=== PATIENT | female | born 1995 | race Caucasian/White ===

== ENCOUNTER → 2017-10-26 12:49 | Outpatient (CLI) | payer OTHER, SELFPAY ==
[2017-11-02 15:33] LABS: HPV Reflexed? NOT INDICATED
== END ==
PROVIDERS: Visit Provider Obstetrics & Gynecology
DX: Z12.4 Encounter for screening for malignant neoplasm of cervix (principal)
CPT/HCPCS: 88175; G0145

== ENCOUNTER → 2018-11-07 16:15 | Outpatient (CLI) | payer OTHER, SELFPAY | PROVIDERS: Visit Provider Obstetrics & Gynecology | DX: Z12.4 Encounter for screening for malignant neoplasm of cervix (principal) ==

== ENCOUNTER → 2018-12-17 10:16 | Outpatient (CLI) | payer OTHER, SELFPAY ==
--- NOTE | 2018-12-17 10:23 | US_ITS ---
STUDY: THYROID ULTRASOUND REASON FOR EXAM: Female, 23 years old. Enlarged thyroid gland TECHNIQUE: Ultrasound evaluation of the thyroid was performed with real-time and static arce-scale imaging. COMPARISON: None. FINDINGS: RIGHT LOBE: The right lobe of the thyroid gland measures 5.3 x 1.5 x 1.2 cm. There is a homogeneous echotexture. There are no demonstrated solid, cystic or complex lesions. LEFT LOBE: The left lobe of the thyroid gland measures 4.4 x 1.0 x 0.9 cm. There is a homogeneous echotexture. There are no demonstrated solid, cystic or complex lesions. ISTHMUS: The isthmus measures 3 mm. The regional lymph nodes are normal. US/Thyroid IMPRESSION: No solid or cystic nodules. Electronically Signed: Ramirez Alfonso MD (Brooks) at 21:23 EDT , Service support ,
--- NOTE | 2018-12-17 10:23 | US_ITS ---
STUDY: ABDOMINAL ULTRASOUND - RIGHT UPPER QUADRANT REASON FOR VISIT: Female, 23 years old. Intermittent right upper quadrant pain for several years TECHNIQUE: Ultrasound evaluation of the right upper quadrant was performed with real-time and static arce-scale imaging. TECHNICAL QUALITY: Adequate. COMPARISON: None. FINDINGS: Liver: The liver measures 17 cm. There is normal echogenicity of the liver. The bile ducts are within normal limits. There is hepatic color flow. The direction of portal flow is hepatopetal. There is no demonstrated mass lesion. Gallbladder: Normal distended gallbladder. The gallbladder wall measures 2 mm. There is a negative sonographic Cordero's sign. There is no pericholecystic fluid. No shadowing gallstones. There is small gallbladder polyps measuring up to 4 mm. Ring down artifact identified of the gallbladder wall. Nonmobile echogenic focus of the gallbladder likely represents a small polyp. Common Bile Duct (C.B.D.): The common bile duct measures 3 mm. Pancreas: There is normal echogenicity of the visualized pancreas. There is no demonstrated pancreatic mass or cyst. Right Kidney: Normal size of the right kidney. The right kidney measures 10.2 x 4.9 x 3.4 cm. Normal renal cortex. The right cortex measures 1.4 cm. There is no demonstrated renal mass or cyst. There is no right hydronephrosis. US/Abdomen Limited IMPRESSION: 1. No shadowing gallstones or biliary dilation. 2. Cholesterol polyps measuring up to 4 mm. 3. Adenomyomatosis Electronically Signed: Ramirez Alfonso MD (Brooks) at 21:21 EDT , Service support ,
== END ==
PROVIDERS: Family Provider Nurse Practitioner Family; PCP Nurse Practitioner Family; Referring Provider Nurse Practitioner Family; Visit Provider Nurse Practitioner Family
DX: R10.11 Right upper quadrant pain (principal); E04.9 Nontoxic goiter, unspecified; E03.9 Hypothyroidism, unspecified
CPT/HCPCS: 76536; 76705

== ENCOUNTER → 2019-01-31 10:31 | Outpatient (CLI) | payer OTHER, SELFPAY ==
--- NOTE | 2019-01-31 10:33 | NM_ITS ---
CLINICAL: 23-year-old female with reported history of right upper quadrant abdominal pain. RADIONUCLIDE HEPATOBILIARY SCINTIGRAPHY COMPARISON: Abdominal ultrasound report 12/17/2018 FINDINGS: Following the intravenous administration of 5.5 mCi of 99m Tc Mebrofenin, hepatobiliary images reveal: 1. Relatively prompt and homogeneous radiopharmaceutical concentration is noted by a normal sized liver. No parenchymal defects are identified. 2. Gallbladder activity is identified at 15 minutes post radiopharmaceutical administration. 3. Small intestinal tract is not visualized during 60 minutes of pre-CCK sequential imaging. Small bowel activity is identified following the administration of cholecystokinin. 4. Washout of the radiopharmaceutical by the hepatic parenchyma appears qualitatively normal. Cholecystokinin (0.02 ug/kg) was administered intravenously over a 30-minute period. The post CCK gallbladder ejection fraction calculated at 20 minutes following Cholecystokinin administration was noted to be < 5 % (normal greater than 35%). NM/Hepatobilliary Img w/Pharm Int IMPRESSION: 1. ABNORMAL 99m Tc Mebrofenin hepatobiliary imaging examination with Cholecystokinin. A. A gallbladder ejection fraction calculated to be less than 35% following the administration of Cholecystokinin is consistent with the presence of functional hepatobiliary disease (gallbladder and/or sphincter of Oddi dyskinesia) and/or organic hepatobiliary disease (chronic acalculous cholecystitis and/or cystic duct syndrome) in patients with intermediate to high pretest likelihoods of hepatobiliary illness. (Debbie Mosqueda et al, Journal of Nuclear Medicine 32:1695, 1990). Electronically Signed: Leroy Shaw DO at 23:33 EDT Tel , Service support ,
== END ==
PROVIDERS: Family Provider Nurse Practitioner Family; PCP Nurse Practitioner Family; Referring Provider Nurse Practitioner Family; Visit Provider Nurse Practitioner Family
DX: D13.5 Benign neoplasm of extrahepatic bile ducts (principal); R10.11 Right upper quadrant pain
CPT/HCPCS: 78227; A9537; J2805

== ENCOUNTER 2019-03-06 06:01 | Day surgery (SDC) | payer OTHER, SELFPAY ==
--- NOTE | 2019-02-17 02:31 | HP_ITS ---
Intake Vital Signs 02/17/19 Height 5 ft 2 in 02/17/19 Weight: 180 lb 02/17/19 Body Mass Index (BMI) 32.9 02/17/19 Respiratory Rate 18 Intake Visit Reasons: GALLBLADDER US 12/17 HIDA SCAN 01/31 Slate Handler Required: No Is patient in pain?: Yes (ruq abdomen) Allergies Sulfa (Sulfonamide Antibiotics) Allergy (Mild, Verified 02/17/19 13:59) Other Medications levocetirizine 5 mg tablet 5 mg PO DAILY 02/17/19 [History Confirmed 02/17/19] levothyroxine 25 mcg capsule 25 mcg PO DAILY 02/17/19 [History] montelukast 10 mg tablet 10 mg PO QPM 02/17/19 [History Confirmed 02/17/19] norgestimate 0.25 mg-ethinyl estradiol 35 mcg tablet 1 tab PO DAILY 02/17/19 [History Confirmed 02/17/19] PFSH Medical History Abdominal pain (Acute) Allergies (Acute) Hypothyroid (Acute) Social History (Updated 02/17/19 @ 14:31 by Pierce Jacobo MD) Smoking Status: Never smoker alcohol intake: current alcohol intake frequency: holidays/special occasions only HPI HPI HPI: JESSIKA ELDER, is a 23 F who presents to the office today for HPI HPI Surgical H&P: Yes HPI: JESSIKA ELDER, is a 23 F who presents to the office today for epigastric pain. She reports that for years she has been having epigastric pain. She says she does get nauseous to the point of vomiting. ROS General General: No weight change, appetite, fatigue, colon cancer, breast cancer or weakness HEENT HEENT: No difficulty swallowing, eye injury, eye surgery, swollen glands or hoarseness Endo Endocrine: Yes thyroid disease; no diabetes mellitus, thyroid cancer, Hair loss, heat intolerance or cold intolerance Skin Skin: No rash or changing moles Breast Breast: No left breast lump, right breast lump, nipple discharge, breast pain, abnormal mammogram, abnormal US or breast enlargement Musc Musculoskeletal: No back problems, arthritis, rheumatoid arthritis, gout or joint pain Cardio Cardiovascular: No murmur, pacemaker, heart disease, atrial fibrillation, high blood pressure, heart attack, heart stent, palpitations, shortness of breat with exertion or chest pain Psych Psychiatric: No depression, anxiety or hearing voices Resp Respiratory: No shortness of breath, No sleep apnea, No cough, No COPD, Yes asthma, No emphysema, No wheezing Gastro Gastrointestinal: Yes abdominal pain, Yes nausea or vomiting, No diarrhea, No constipation, No blood in stool, No acid reflux, No hemorrhoids, No ulcers, Yes gallbladder problem, No black,tarry stools Kumar Hematologic: No blood thinners, No blood disorders, No bleeding, No anemia, No blood clots Neuro Neurologic: No system reviewed and no additional complaints, except as docu, No as per HPI, No abnormal walking, No abnormal hearing, No abnormal movements, No abnormal speech, No behavioral changes, No burning sensations, No confusion, No seizure-like activity, No unsteadiness, No dizziness, No localized weakness, No frequent falls, No headache(s), No lack of coordination, No loss of vision, No memory loss, No numbness, No other visual disturbances, No radiating pain, No restless legs, No sensory deficit, No fainting, No tingling, No tremor(s), No weakness, No other Exam Const General: cooperative Orientation: alert, oriented x3 Chest Breast Palpation: No nipple discharge Resp Effort & Inspection: normal respiratory effort Auscultation: clear to auscultation bilaterally Cardio Rate: regular rate Rhythm: regular rhythm Heart Sounds: no murmurs GI Inspection: non-distended Palpation: soft, nontender Assessment & Plan Problems 1. Biliary dyskinesia K82.8 Plan The patient is having epigastric pain. This is been going on for years. The patient had ultrasound which showed small gallbladder polyps. She had a HIDA scan which showed ejection fraction of less than 5%. I discussed laparoscopic cholecystectomy with her and she would like to proceed with this. I also discussed the possibility that this was peptic ulcer disease or gastritis. I discussed the procedure in detail with the patient. I discussed the risks, benefits, and alternatives of the procedure. I discussed the risks including but not limited to bleeding, infection, injury to surrounding organs such as the liver, bile duct, bowels. I did discuss the possibility of having to convert to an open procedure as well as the possibility that if any injuries occurred this may necessitate further surgery at a tertiary care center. Pierce Jacobo MD Pager: [facility] [address] [place] [address], [address] [place] [address] Office: Coding Level of Care Code Off vis,new,level 3 Diagnoses Biliary dyskinesia K82.8 02/17/19 1432 <Electronically signed by Pierce garcia MD> Date _ Pierce Jacobo MD I have re-examined the patient. There are no clinical changes since date of exam.
[2019-02-17 13:58] VITALS: BMI 32.9
[2019-03-02 17:45] LABS: Thyroid Stim Hormone (TSH) 2.93 uIU/mL (0.358-3.74)
[2019-03-06] VITALS (10 sets, daily range): BP systolic 118–140; BP diastolic 73–89; PULSE 67–91; RESP 16–18; TEMP 36.4–36.9; O2SAT 94–100; BMI 33.5
--- NOTE | 2019-03-06 06:17 | EKG12_ITS ---
Test Reason : PRE OP Blood Pressure : / mmHG Vent. Rate : 076 BPM Atrial Rate : 076 BPM P-R Int : 142 ms QRS Dur : 086 ms QT Int : 414 ms P-R-T Axes : 015 016 020 degrees QTc Int : 465 ms Normal sinus rhythm Normal ECG No previous ECGs available Confirmed by STEPHANIE CORONEL ([id number]), editor index ANDREA CARLISLE ([id number]) on 03/10/2019 11:34:50 AM Referred By: Pierce Jacobo Confirmed By:STEPHANIE CORONEL
[2019-03-06 06:33] LABS: Internal QC Validated? YES +Cl - CLEAR BKGD; Pregnancy, Urine Negative Negative
[2019-03-06] MEDS: Lactated Ringers 1,000 ML 100 ML IV ×2 (07:21→12:02)
--- NOTE | 2019-03-06 07:30 | RAD_ITS ---
CLINICAL HISTORY: Female, 23 years old. Cholelithiasis PROCEDURE: CHOLANGIOGRAM - intraoperative FLUOROSCOPY TIME (if supplied): 0.9 seconds Placement of the catheter and the procedure were performed by: Operating surgeon Fluoroscopy was provided by radiology technician, who was present in the room time of the procedure. TECHNIQUE: (Fluoroscopic guided intraoperative cholangiogram was performed by submission of 59 images in the anterior projection FINDINGS:) Bile ducts are normal in caliber and no intraluminal filling defects are seen. There is emptying into the duodenum confirming patency of the ducts.. There is filling of the cystic duct remnant. RAD/Cholangiogram/ O R,Initial IMPRESSION: Unremarkable intraoperative cholangiogram Electronically Signed: Toni Powell MD at 21:48 EST , Service support ,
--- NOTE | 2019-03-06 07:30 | GALL_PTH ---
PATIENT: JESSIKA CRAIN [place] [facility] [place][id number] AGE/SX: ROOM: RE03/06/[address]: Dr. Pierce Jacobo MD : 1995 BED: DIS: 03/06/2019 SPEC #: [id number] RECD: 03/06/19 10:58 STATUS: AMANDA SIVA #: [id number] KAUSHAL: 03/06/19 07:[address]: Pierce Jacobo DEPT: SURGICAL PATHOLOGY RECD BY: Apoorva Friend ENTERED: 03/06/19 11:52 SP TYPE: JULIAN BLAIR DR: Leroy Phillips, SENIOR PROJECT CONTROLS SPECIALIST-C Tissues: Gallbladder, NOS Procedures: Surgery Specimen Level III HEADER OPERATION: Laparoscopic cholecystectomy with intraoperative cholangiograph PRE-OP DIAGNOSIS: Biliary dyskinesia K82.8 TISSUE SUBMITTED: Gallbladder MICROSCOPIC DIAGNOSIS Gallbladder, cholecystectomy: Cholesterolosis and chronic cholecystitis. AM:carissa 03/07/19 MICROSCOPIC DESCRIPTION Slides are reviewed. GROSS DESCRIPTION Received is one container labeled with the patient's name and designated gallbladder. The specimen consists of a gallbladder measuring 6.5 cm in length and 3.5 cm in diameter. The external surface is pink-geronimo, smooth and glistening for the most part. Focally it is granular, hemorrhagic and contains cautery artifact. The gallbladder contains green-yellow mucoid bile. No stones are identified in the container or in the gallbladder. The mucosa is bile-stained and without any mass lesions. The gallbladder wall also shows several small polyps measuring 0.1 to 2.3 cm in greatest dimension. The mucosa also shows several yellowish streaks consistent with cholesterolosis. The gallbladder wall measures up to 0.2 cm in thickness. Cutting Table Operator First sections from the gallbladder and the cystic duct including small polypoid lesions are submitted in one cassette. / PIERRE:carissa 03/06/19 TC:3 CPT: 60727
--- NOTE | 2019-03-06 08:50 | PCM.OPRPT ---
Problem List (1) Biliary dyskinesia Status: Acute Report of Operation Date of Procedure: 03/06/19 Pre-Operative Diagnosis: Biliary dyskinesia Post-Operative Diagnosis: Same Surgery/Procedure Performed:: Laparoscopic cholecystectomy with cholangiogram Specimen's removed: Gallbladder Description of Procedure: After obtaining informed consent patient was brought back to the operating room. General anesthesia was induced. The abdomen was prepped and draped in usual sterile fashion. A small midline incision was made superior to the umbilicus and deepened to the level of fascia. The fascia was elevated and incised. Next the peritoneum was elevated and incised in the same fashion. Finger sweep was performed and the Hays trocar was placed into the abdomen. The balloon was inflated. The abdomen was inflated to 15 mmHg. Next a camera was introduced into the abdomen and the abdomen was inspected. Next under direct visualization three 5-mm ports were placed one subxiphoid and 2 subcostal. Next the gallbladder was elevated and retracted toward the right shoulder. The peritoneum was stripped from the gallbladder. The infundibulum was located and retracted laterally. Next the triangle of Calot was dissected and the cystic duct and cystic artery were identified. Cholangiograms were performed. The Cuevas clamp was used to clamp across the infundibulum and the catheter needle was inserted into the gallbladder. Under fluoroscopy contrast was instilled into the gallbladder and the common duct, cystic duct as well as proximal hepatic ducts were identified. There was good filling of the duodenum. There were no filling defects noted in the common bile duct. The clamp was removed as well as the needle and the infundibulum was grasped once more. Three hemolock clips were placed across the cystic duct. The cystic duct was then divided leaving 2 clips on the stump. The cystic artery was clipped and divided in the same fashion. The hook cautery was then used to take the gallbladder off of the gallbladder bed. Hemostasis was obtained. Gallbladder fossa was irrigated and no active bleeding or bile leakage was noted. Next the camera switched to a 5 mm camera and introduced in the subxiphoid port. An Endopouch bag was placed through the umbilical port and the gallbladder was placed into it. The gallbladder was then removed through the umbilical incision. The camera was then reinserted through the umbilical port. The gallbladder fossa was inspected once more and noted to be hemostatic with no leaking bile. The abdomen was suctioned dry. The 5 mm ports were removed under direct visualization. The umbilical port was then removed and the air was removed from the abdomen. Next using an 0 Vicryl suture the umbilical fascia was closed in a [id number] fashion. The umbilical port site was irrigated local anesthetic was administered to all the incisions. All the incisions were closed with interrupted subcuticular 4-0 Monocryl sutures followed by Steri-Strips and dressings. The patient was awoken and taken to PACU in stable condition. - Admit VTE Documentation VTE Mechan Device Prophylaxis: SCD's
--- NOTE | 2019-03-06 08:53 | PCM.DC.GB ---
Discharge Diet: Light diet - advance as tolerated Discharge Activity: Return to Normal Activity, May Not Drive - for 2-3 days or while taking narcotic pain medicataions., - - Do not drive, work heavy equipment or sign legal documents for 24 hours. May shower in (days): 1 - with the bandage in place. Lifting Restrictions: 20 lbs for 2 weeks Additional Activity Instructions:: Pain medication may cause nausea. You should typically eat light foods as you take your pain medications. Pain medication may also cause constipation. If this is a problem for you, please discuss with your doctor. Call your doctor if your incision/area has: Continuous Slow Oozing, Sudden Increased Bleeding, Increased Pain/ Swelling, Increased Redness, Foul Smelling Discharge, Fever of 101 or Higher Call your doctor if you observe: Fever of 101 or Higher Suture Line Care: Avoid Pulling/Pushing, Avoid Pinching/Bending Additional Dressing/Incision Instructions:: Leave operative bandaids on for 2 days. When you remove dressing, leave Steri-Strips on until your follow-up appointment, or until the Steri-Strips fall off on their own. Allergies/Adverse Reactions: Allergies Sulfa (Sulfonamide Antibiotics) Allergy (Mild, Verified 03/01/19 10:02) Other Medications to take at Discharge levocetirizine 5 mg tablet 5 mg PO DAILY 02/17/19 levothyroxine 25 mcg capsule 25 mcg PO DAILY 02/17/19 montelukast 10 mg tablet 10 mg PO QPM 02/17/19 norgestimate 0.25 mg-ethinyl estradiol 35 mcg tablet 1 tab PO DAILY 02/17/19 Hydrocodone/Acetaminophen [Hydrocodon-Acetaminophen 5-325] 1 each PO Q6H PRN PRN 5 Days #30 tablet 03/06/19 The following prescriptions were given: Hydrocodone/Acetaminophen [Hydrocodon-Acetaminophen 5-325] 1 each PO Q6H PRN PRN 5 Days #30 tablet PRN Reason: Pain Score 6-10/10 Transmission Status: Sent to [facility] Primary Care Physician: Leroy Phillips NP-C [Primary Care Provider] - Test Results: Test results from this visit will be discussed in further detail at your follow-up appointment, if applicable. Please Follow Up With: Pierce Jacobo MD When: Please call to schedule 2 week follow up appointment. [phone]
[2019-03-06] MEDS: HYDROcodone Bitartrate/Apap 5/325 Tablet PO (10:49)
== END 2019-03-06 13:19 | disposition home or self-care (01) ==
LOC: SDC 06:02 → AC 06:03
PROVIDERS: Anesthesiology; Family Provider Nurse Practitioner Family; PCP Nurse Practitioner Family; Referring Provider Surgery; Visit Provider Surgery
PROC: (CPT 47610; principal; 2019-03-06 07:10)
DX: K81.1 Chronic cholecystitis (principal); K82.8 Other specified diseases of gallbladder; E03.9 Hypothyroidism, unspecified; Z88.2 Allergy status to sulfonamides
CPT/HCPCS: 00790; 47563; 36415; 74300; 76000; 81025; 84443; 88304; 93005; J7120; J2405

== ENCOUNTER 2019-03-08 03:08 | Observation (INO) | payer OTHER, SELFPAY ==
[2019-03-06 06:43] VITALS: BMI 33.5
[2019-03-08 03:10] VITALS: BP 133/77; PULSE 84; RESP 16; TEMP 36.9; O2SAT 96; BMI 33.6
--- NOTE | 2019-03-08 03:34 | CT_ITS ---
STUDY: CT ABDOMEN AND PELVIS WITH CONTRAST REASON FOR EXAM: Female, 23 years old. Right upper quadrant pain, clear fluid emesis since 2329. Cholecystectomy 03/06/2019 with no bowel movement since. RADIATION DOSAGE (If Supplied By Facility): CTDIvol = ( 13.74 ) mGy, DLP = ( 803.23 ) mGycm TECHNIQUE: Transaxial images were obtained from the dome of the diaphragm to the symphysis pubis without oral contrast. IV 100mL [id number]-300 100ML was administered. Sagittal and coronal images were reconstructed. Individualized dose optimization techniques were used for this CT. COMPARISON: None. FINDINGS: The visualized lung bases are unremarkable. The visualized portions of the heart are within normal limits. Normal liver. Gallbladder is not visualized. There is trace fluid and stranding in the gallbladder fossa consistent with recent surgical intervention. There is no focal collection or abscess.. Normal spleen. Normal pancreas. Normal bilateral adrenal glands. Nonobstructing 5 mm right upper renal pole calculus. Normal left kidney. Normal visualized stomach. Mild fluid filled but nondistended small bowel in the pelvis without wall or fold thickening. No abrupt caliber change. There are scattered mesenteric lymph nodes along the lower abdomen. Intraluminal hyperattenuation in the cecum and proximal ascending colon as well as segments of the proximal appendix. There is fecal material, pockets of air and low attenuation component in the cecum and proximal ascending colon likely mixing off solid, liquid feces and contrast. No sign of intussusception. The descending to sigmoid colon is decompressed without pericolonic fat stranding. The appendix is visualized and appears normal. Normal abdominal aorta. Normal inferior vena cava. Normal retroperitoneum. Normal urinary bladder. Normal visualized uterus. There is low attenuation of the ovaries most frequently due to follicular cysts. Trace pelvic fluid. Postsurgical changes compatible with history. 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 CT/Abdomen/Pelvis W IV Cont ONLY IMPRESSION: There is no appendicitis, diverticulitis, abscess, collection, perforation or obstruction. No significant amount of retained fecal material. Possible mild small bowel ileus without obstruction in the pelvis. Heterogeneous lumen of the cecum and ascending colon likely mixing off feces and contrast. Trace pelvic fluid could be physiologic, could also relate to recent surgical intervention. No abscess or collection within the gallbladder fossa. Electronically Signed: Brittanie Coley MD at 4:47 EST , Service support ,
--- NOTE | 2019-03-08 03:34 | ED.VIS.GEN ---
History of Present Illness Chief Complaint: Abd Pain Narrative: Patient is a 23-year-old female who presents with abdominal pain nausea and vomiting. She had a cholecystectomy 3 days ago for biliary dyskinesia and chronic cholecystitis. Her pain was initially controlled at home. About 4 hours ago she developed nausea and vomiting. Emesis is nonbloody and nonbilious then followed by persistent dry heaving. She has not had a bowel movement since surgery. She does not have flatus. No prior abdominal surgeries otherwise. She has also developed right upper quadrant abdominal pain. No fevers. Postoperatively she did have urinary urgency but was only voiding small amounts. Mother is a nurse and perform straight catheterization and she did have about 650 out. She has not however had any problems with urinary retention since that time and has been voiding normally without dysuria urgency. Past Medical History - Allergies and Home Meds Allergies/Adverse Reactions: Allergies Sulfa (Sulfonamide Antibiotics) Allergy (Mild, Verified 03/08/19 03:20) Other Primary Care Physician: Leroy Phillips, TUBING MACHINE TENDER-C [Primary Care Provider] - Past Medical History: - - Hypothyroidism Surgical History: cholecystectomy Smoking Status: Never smoker Review of Systems All systems negative except as indicated General: Denies: Fever Eyes: Denies: Visual changes - bilaterally ENT: Denies: Bilateral ear pain Cardiovascular: Denies: Chest pain Respiratory: Denies: Dyspnea Gastrointestinal: Reports: Abdominal pain, Nausea, Vomiting. Denies: Diarrhea Genitourinary: Reports: Frequency. Denies: Dysuria Musculoskeletal: Denies: Myalgias Skin: Denies: Rash Neurological: Denies: Headache Physical Exam Vital Signs/Narrative: Vital Signs Temp Pulse Resp BP Pulse Ox 03/08/19 03:10 98.5 F 84 16 133/77 H 96 Inital Vital Signs reviewed: Yes General: Well nourished Head: Normocephalic Eyes: EOMI ENT: Moist mucous membranes Neck: Supple Cardiovascular: Regular rate, Regular rhythm Respiratory: No distress, CTA bilaterally Abdomen: Soft, - - Right upper quadrant abdominal tenderness, incisions are clean dry and intact no erythema or drainage. Diminished bowel sounds. Nondistended. Extremities: Nontender Skin: Normal color Neurological: Alert Psychological: Normal affect Diagnostic/Tx/Re-eval Impressions Abdomen/Pelvis CT 03/08/19 03:34 IMPRESSION: There is no appendicitis, diverticulitis, abscess, collection, perforation or obstruction. No significant amount of retained fecal material. Possible mild small bowel ileus without obstruction in the pelvis. Heterogeneous lumen of the cecum and ascending colon likely mixing off feces and contrast. Trace pelvic fluid could be physiologic, could also relate to recent surgical intervention. No abscess or collection within the gallbladder fossa. Electronically Signed: Brittanie Coley MD at 4:47 EST , Service support , 03/08/19 03:34 Abdomen/Pelvis W IV Cont ONLY [CT] Stat Laboratory Results 03/08/19 03/08/19 03/08/19 03:00 03:00 04:40 WBC 10.7 RBC 4.42 Hgb 13.2 Hct 39.1 MCV 88.5 MCH 29.9 MCHC 33.8 RDW Std Deviation 39.3 RDW Coeff of Maria R 12.1 Plt Count 309 MPV 10.0 Immature Gran % (Auto) 0.400 Neut % (Auto) 81.2 H Lymph % (Auto) 12.8 L [place] % (Auto) 4.8 Eos % (Auto) 0.5 Baso % (Auto) 0.3 Absolute Neuts (auto) 8.7 H Absolute Lymphs (auto) 1.37 Nucleated RBC % 0 Sodium 137 Potassium 3.6 Chloride 104 Carbon Dioxide 26.0 Anion Gap 7 BUN 7 Creatinine 0.74 Estim Creat Clear Calc 93.51 Est GFR (MDRD) Af Amer 124 Est GFR (MDRD) Non-Af 103 BUN/Creatinine Ratio 9.4 L Glucose 112 H Calcium 9.0 Total Bilirubin 0.50 AST 23 ALT 45 Alkaline Phosphatase 97 Total Protein 7.4 Albumin 3.7 Globulin 3.7 Albumin/Globulin Ratio 1.0 Lipase 70 L Urine Color Straw Urine Clarity Clear Urine pH 8.0 Ur Specific [place] 1.010 Urine Protein Negative Urine Glucose (UA) Normal Urine Ketones 5 H Urine Occult Blood Negative Urine Nitrite Negative Urine Bilirubin Negative Urine Urobilinogen Normal Ur Leukocyte Esterase Negative Urine RBC 0 SEEN Urine WBC 0 SEEN Ur Squamous Epith Cells 0-5 SEEN Urine Bacteria RARE Urine Mucus Not Reportable - Medical Decision Making Patient was symptomatically treated with IV fluids, morphine, Zofran. Laboratory studies urinalysis and CT imaging was ordered. Patient does feel much better on reevaluation. Laboratory studies are essentially unremarkable. CT of the abdomen pelvis shows a mild ileus. Patient was discussed with general surgery on-call, Dr. Doherty, for the patient's surgeon and patient will be admitted for further treatment and management. ED Disposition - Plan for ED Patient: Disposition: Acute Care Hospital [facility] Diagnosis: Ileus Referrals: Leroy Phillips, TUBING MACHINE TENDER-C [Primary Care Provider] -
[2019-03-08] MEDS: 0.9% Normal Saline 1,000 ML 1000 ML IV (03:54)
[2019-03-08] MEDS: Morphine 4 MG/ML Syringe IV (03:54)
[2019-03-08] MEDS: Ondansetron 4 MG/2 ML Vial IV (03:55)
[2019-03-08 04:07] LABS: Absolute Lymphocyte Count 1.37 X10^3/uL (0.83-4.51); Absolute Neutrophil Count 8.7 X10^3/uL (2.0-7.7); Basophil# 0.03 X10^3/uL; Basophil% 0.3 % (0-1); Eosinophil# 0.05 X10^3/uL; Eosinophils% 0.5 % (0-5); Hematocrit 39.1 % (37-47); Hemoglobin 13.2 g/dL (12.0-15.0); Lymphocyte # 1.37 X10^3/ul (4.0); Lymphocyte % 12.8 % (19-41); Mean Corp Hgb Conc 33.8 g/dL (32-36); Mean Corpuscular Hgb 29.9 pg (27.0-32.0); Mean Corpuscular Volume 88.5 fL (81-99); Monocyte# 0.52 X10^3/uL; Monocyte% 4.8 % (0-10); NRBC Flagged by Analyzer 0 % (0-5); Neutrophil # 8.73 X10^3/uL (2.7-7.7); Neutrophil % 81.2 % (47-70); Platelet Count 309 K/mm3 (150-450); RBC Distribution Width CV 12.1 % (11.6-14.6); RBC Distribution Width SD 39.3 fl (35.1-43.9); Red Blood Count 4.42 M/mm3 (4.2-5.4); White Blood Count 10.7 K/mm3 (4.4-11.0)
[2019-03-08 04:30] LABS: AST(SGOT) 23 U/L (15-37); Alanine Aminotransfer ALT/SGPT 45 U/L (13-56); Albumin, Serum 3.7 g/dL (3.2-5.0); Alkaline Phosphatase 97 U/L (45-117); Anion Gap 7 (5-15); BUN 7 mg/dL (7-18); BUN/Creat Ratio 9.4 RATIO (10-20); Chloride 104 mmol/L (98-107); Creatinine, Serum 0.74 mg/dL (0.55-1.02); EST Glomerular Filtration Rate 103 mL/min (>60); Est Glom Filt Rate - Afr Amer 124 mL/min (>60); Estimated Creatinine Clearance 93.51 ml/min; Globulin 3.7 g/dL (2.2-4.2); Glucose 112 mg/dL (74-106); Lipase 70 U/L (73-393); Potassium 3.6 mmol/L (3.5-5.1); Protein, Total 7.4 g/dL (6.4-8.2); Sodium Level 137 mmol/L (136-145)
[2019-03-08 04:49] LABS: Red Blood Cells-Urine 0 SEEN /hpf (0-5); White Blood Cells 0 SEEN /hpf (0-5)
[2019-03-08 05:12] LABS: Color, Urine Straw (Yellow); Glucose, Dipstick Normal (Normal); Ketone-Dipstick 5 mg/dl (Negative); Leukocyte Esterase-Dipstick Negative /ul (Negative); Nitrite-Dipstick Negative (Negative); Occult Blood-Urine Negative /ul (Negative); Protein-Dipstick Negative (Negative); Urine Bilirubin Dipstick Negative (Negative); Urine Clarity Clear (Clear); Urine Urobilinogen Normal (Normal)
[2019-03-08 05:15] LABS: Bacteria RARE /hpf (None Seen); Squamous Epithelial Cells - UA 0-5 SEEN /hpf (5-10)
--- NOTE | 2019-03-08 07:10 | PCM.HP.STD ---
History of Present Illness Date of Admission: 03/08/19 The patient is a 23 year old F status post laparoscopic cholecystectomy with cholangiograms on 03/06/2019. Patient reports increased right-sided pain nausea and vomiting starting last night. Patient had a CT abdomen pelvis done which did show constipation in the right colon and gas in the transverse. Patient's labs were within normal limits including a UA. Patient normally has bowel movements daily but only typically goes a small amount. Patient denies any flatus since the surgery. Past Medical History Medical History: Medical History (Last Reviewed 02/17/19 @ 13:58 by Carmen Damico) Abdominal pain R10.9 Allergies T78.40XA Hypothyroid E03.9 Allergies Sulfa (Sulfonamide Antibiotics) Allergy (Mild, Verified 03/08/19 03:20) Other Home Medications: Ambulatory Orders Medication Instructions Recorded levocetirizine 5 mg tablet 5 mg PO DAILY 02/17/19 levothyroxine 25 mcg capsule 25 mcg PO DAILY 02/17/19 montelukast 10 mg tablet 10 mg PO QPM 02/17/19 norgestimate 0.25 mg-ethinyl 1 tab PO DAILY 02/17/19 estradiol 35 mcg tablet Hydrocodone/Acetaminophen 1 ea PO Q6H PRN PRN 5 Days #30 tab 03/06/19 [Hydrocodon-Acetaminophen 5-325] Surgical History: cholecystectomy - Laparoscopic Smoking Status: Never smoker Review of Systems Constitutional: Denies: Chills HEENT: Denies: Difficulty Swallowing Gastrointestinal: Reports: Abdominal Pain, Constipation, Nausea, Vomiting VTE Information - Inpt Only VTE Present on Admission: Yes VTE Mechan Device Prophylaxis: SCD's VTE Pharm Prophylaxis ordered?: No Reason prophylaxis not ordered:: Treatment Not Indicated Patient Problems: Active and Suspected Problems (Last Reviewed 02/17/19 @ 13:58 by Carmen Damico) Ileus (Acute) - Physical Exam Vitals/I&O's: Vital Signs Temp Pulse Resp BP Pulse Ox 98.5 F 84 16 133/77 H 96 03/08/19 03:10 03/08/19 03:10 03/08/19 03:10 03/08/19 03:10 03/08/19 03:10 Oxygen Delivery Method Room Air Weight: 183 lb 13.848 oz Body Mass Index (BMI) 33.6 Intake and Output for Last 24 Hours 03/06/19 03/07/19 03/08/19 23:59 23:59 23:59 Intake Total 1000 / 1000 Balance 1000 / 1000 General: Alert, Oriented x3, Cooperative, No apparent distress Lungs: Normal air movement Cardiovascular: Regular rate Abdomen: Soft, Non-Distended, Tender - right upper and lower arteries, no peritoneal signs Extremities: No edema Neurological: Cranial nerves II-XII grossly intact Psych/Mental Status: Normal Affect Laboratory Results 03/08/19 03:00: WBC 10.7, RBC 4.42, Hgb 13.2, Hct 39.1, MCV 88.5, MCH 29.9, MCHC 33.8, RDW Std Deviation 39.3, RDW Coeff of Maria R 12.1, Plt Count 309, MPV 10.0, Immature Gran % (Auto) 0.400, Neut % (Auto) 81.2 H, Lymph % (Auto) 12.8 L, Hughes % (Auto) 4.8, Eos % (Auto) 0.5, Baso % (Auto) 0.3, Absolute Neuts (auto) 8.7 H, Absolute Lymphs (auto) 1.37, Nucleated RBC % 0 03/08/19 03:00: Sodium 137, Potassium 3.6, Chloride 104, Carbon Dioxide 26.0, Anion Gap 7, BUN 7, Creatinine 0.74, Estim Creat Clear Calc 93.51, Est GFR (MDRD) Af Amer 124, Est GFR (MDRD) Non-Af 103, BUN/Creatinine Ratio 9.4 L, Glucose 112 H, Calcium 9.0, Total Bilirubin 0.50, AST 23, ALT 45, Alkaline Phosphatase 97, Total Protein 7.4, Albumin 3.7, Globulin 3.7, Albumin/Globulin Ratio 1.0, Lipase 70 L 03/08/19 04:40: Urine Color Straw, Urine Clarity Clear, Urine pH 8.0, Ur Specific [place] 1.010, Urine Protein Negative, Urine Glucose (UA) Normal, Urine Ketones 5 H, Urine Occult Blood Negative, Urine Nitrite Negative, Urine Bilirubin Negative, Urine Urobilinogen Normal, Ur Leukocyte Esterase Negative, Urine RBC 0 SEEN, Urine WBC 0 SEEN, Ur Squamous Epith Cells 0-5 SEEN, Urine Bacteria RARE, Urine Mucus Not Reportable Assessment/Plan All Active Problems (Last Reviewed 02/17/19 @ 13:58 by Carmen Damico) Biliary dyskinesia (Acute) Ileus (Acute) 23-year-old female status post laparoscopic cholecystectomy on 03/06/1019 with nausea and vomiting and constipation 1. Discussed patient in her mom will plan to give Dulcolax suppositories or enemas until she starts having some bowel function then we will give her magnesium citrate p.o. Also reviewed the CT abdomen pelvis with the patient and her mom. Discussed with patient for her constipation issues recommend 25 g of fiber daily as well as making sure she drinks enough water which she is not sure she does either currently. Sonia Doherty M.D. Pager: [phone] [facility] [address] [place] [address], [facility], [address] [place] [address] Office: [phone]
[2019-03-08 07:25] VITALS: BP 134/66; PULSE 72; RESP 15; O2SAT 98
[2019-03-08] MEDS: Bisacodyl 10 MG Suppository RECTAL ×2 (07:36→10:35)
[2019-03-08 08:00] VITALS: BP 114/71; PULSE 75; RESP 18; TEMP 36.8; O2SAT 98; BMI 33.4; BMI 33.6
--- NOTE | 2019-03-08 08:10 | NM_ITS ---
CLINICAL: 23-year-old female with history of recent cholecystectomy with postoperative pain and suspected bile leak. RADIONUCLIDE HEPATOBILIARY SCINTIGRAPHY COMPARISON: CT of the abdomen-pelvis report of 03/08/2019, pre-cholecystectomy CCK hepatobiliary scintigraphy study dated 01/31/2019 FINDINGS: Following the intravenous administration of 5.5 mCi of 99m Tc Mebrofenin, hepatobiliary images reveal: 1. Relatively prompt and homogeneous radiopharmaceutical concentration is noted by a normal sized liver. No parenchymal defects are identified. 2. Gallbladder activity is not identified during 60 minutes of sequential imaging commensurate with known history of prior cholecystectomy. 3. Small intestinal tract is observed at 15 minutes post radiopharmaceutical administration. The visualized common bile duct demonstrates increasing and decreasing-fluctuating activity during the course of image acquisition. 4. Washout of the radiopharmaceutical by the hepatic parenchyma appears qualitatively normal. 5. There is no evidence of a visualized bile leak identified during 60 minutes of sequential imaging. 6. Duodenal-gastric reflux is demonstrated initiating approximately 38 minutes following tracer injection. NM/Hepatobilliary Imaging IMPRESSION: 1. Nonvisualization of the gallbladder is consistent with prior cholecystectomy. 2. There is no scintigraphic evidence of bile leak. Defined duodenal-gastric reflux is demonstrated as described above, correlating with the anatomic localization of the stomach as defined on review of coronal reconstructions of CT of the abdomen and pelvis dated 03/08/2019. Electronically Signed: Leroy Shaw DO at 14:21 EST Tel , Service support ,
[2019-03-08] MEDS: 0.9% Saline Lock 10 ML Syringe IV (08:40)
[2019-03-08] MEDS: Lactated Ringers 1,000 ML 125 ML IV (08:40)
--- NOTE | 2019-03-08 14:51 | PCM.PN.BLA ---
Progress Note Hida performed. no evidence of leak. Will give PPI for bile reflux and Mag Citrate for constipation. Possible DC later. Pierce Jacobo MD
--- NOTE | 2019-03-08 14:56 | PCM.DC.GS ---
Discharge Diet: Light diet - advance as tolerated Discharge Activity: May not drive while taking narcotic pain medications. May shower in (days): 0 - Okay to shower Lifting Restrictions: Same as previous instructions from humberto devine Call your doctor if your incision/area has: Continuous Slow Oozing, Sudden Increased Bleeding, Increased Pain/ Swelling, Increased Redness, Foul Smelling Discharge, Swelling at the incision site Call your doctor if you observe: Fever of 101 or Higher Additional Instructions: Take stool softener daily initially, also try to get to 25 g of fiber daily first see how much diarrhea normally getting daily because if you go up quickly he may get a lot of cramping and gas so you are normally at 10 g would not jump to 25 the next day. Also try to drink at least 32 ounces of water daily to help with constipation. Allergies/Adverse Reactions: Allergies Sulfa (Sulfonamide Antibiotics) Allergy (Mild, Verified 03/08/19 08:06) Rash Medications to take at Discharge levocetirizine 5 mg tablet 5 mg PO DAILY 02/17/19 levothyroxine 25 mcg capsule 25 mcg PO DAILY 02/17/19 montelukast 10 mg tablet 10 mg PO QPM 02/17/19 norgestimate 0.25 mg-ethinyl estradiol 35 mcg tablet 1 tab PO DAILY 02/17/19 Hydrocodone/Acetaminophen [Hydrocodone-Acetamin 5-325 mg] 1 ea PO Q6H PRN PRN 5 Days #30 tab 03/06/19 Pantoprazole Sodium [Protonix] 40 mg PO DAILY 60 Days #60 tab 03/08/19 The following prescriptions were given: Pantoprazole Sodium [Protonix] 40 mg PO DAILY 60 Days #60 tab Transmission Status: Received by [facility] Primary Care Physician: Leroy Phillips, MERCEDES-C [Primary Care Provider] - Test Results: Test results from this visit will be discussed in further detail at your follow-up appointment, if applicable. Please Follow Up With: Pierce Jacobo MD - After 5:00 on the weekends call [phone] with any concerns When: As previously scheduled Proposed Discharge Date: 03/08/19
[2019-03-08 15:12] VITALS: BP 121/70; PULSE 78; RESP 18; TEMP 36.8; O2SAT 96
[2019-03-08] MEDS: Magnesium Citrate 300 ML 150 ML PO (15:36)
== END 2019-03-08 19:09 | disposition home or self-care (01) ==
LOC: ED 06:18 → MS3 07:34
PROVIDERS: Admitting Provider Surgery; Emergency Provider Emergency Medicine; Family Provider Nurse Practitioner Family; PCP Nurse Practitioner Family; Visit Provider Surgery
DX: K59.00 Constipation, unspecified (principal); K21.9 Gastro-esophageal reflux disease without esophagitis; E03.9 Hypothyroidism, unspecified; Z79.899 Other long term (current) drug therapy; Z98.890 Other specified postprocedural states; Z90.49 Acquired absence of other specified parts of digestive tract
CPT/HCPCS: 74177; 78226; 80053; 81001; 83690; 85025; 96361; 96365; 96375; 99218; 99283; A9537; J7030; J7120; Q9967; A4216; G0378; J2405

== ENCOUNTER 2019-04-19 14:54 | Emergency (ER) | payer OTHER, SELFPAY ==
[2019-03-13 15:01] VITALS: BMI 33.6
[2019-04-19 14:54] VITALS: BP 139/94; PULSE 79; RESP 16; TEMP 36.8; O2SAT 100; BMI 33.8
--- NOTE | 2019-04-19 15:09 | CT_ITS ---
STUDY: CT ABDOMEN AND PELVIS WITHOUT CONTRAST REASON FOR EXAM: Female, 23 years old. PT STATED RT SIDE FLANK PAIN, HX OF LARA RADIATION DOSAGE (If Supplied By Facility): CTDIvol = ( 10.17 ) mGy, DLP = ( 474.95 ) mGycm TECHNIQUE: Transaxial images were obtained from the dome of the diaphragm to the symphysis pubis without oral contrast, and without intravenous contrast. Sagittal and coronal images were reconstructed. Individualized dose optimization techniques were used for this CT. COMPARISON: Comparison is made with prior study dated March 08, 2019. FINDINGS: The visualized lung bases are unremarkable. The visualized portions of the heart are within normal limits. Normal liver. There are surgical clips in the gallbladder fossa consistent with a prior cholecystectomy. Normal spleen. Normal pancreas. Normal bilateral adrenal glands. There is a 3.6 mm calculus at the right ureterovesical junction. No significant hydronephrosis or hydroureter is seen at this time. Normal left kidney. Normal visualized stomach. Normal small intestine. Normal colon. The appendix is visualized and appears normal. Normal abdominal aorta. Normal inferior vena cava. Normal retroperitoneum. Normal urinary bladder. I suspect a 2.1 cm cyst in the right ovary. Normal abdominal wall. Spondylolysis of the pars interarticularis of the L5 vertebrae with no significant listhesis. CT/Abdomen/Pelvis without Cont IMPRESSION: 3.6 mm calculus at the right ureterovesical junction without significant hydronephrosis or either ureter. Electronically Signed: Marciano King, at 15:50 EST , Service support ,
[2019-04-19] MEDS: 0.9% Normal Saline 1,000 ML 125 ML IV (15:26)
[2019-04-19] MEDS: Ketorolac 30 MG/ML Syringe IV (15:27)
[2019-04-19 15:39] LABS: Absolute Lymphocyte Count 2.05 X10^3/uL (0.83-4.51); Absolute Neutrophil Count 3.7 X10^3/uL (2.0-7.7); Basophil# 0.03 X10^3/uL; Basophil% 0.5 % (0-1); Eosinophil# 0.22 X10^3/uL; Eosinophils% 3.4 % (0-5); Hematocrit 39.1 % (37-47); Hemoglobin 12.8 g/dL (12.0-15.0); Lymphocyte # 2.05 X10^3/ul (4.0); Lymphocyte % 31.4 % (19-41); Mean Corp Hgb Conc 32.7 g/dL (32-36); Mean Corpuscular Hgb 28.7 pg (27.0-32.0); Mean Corpuscular Volume 87.7 fL (81-99); Mean Platelet Vol. 10.5 fl (6.2-12.0); Monocyte% 7.7 % (0-10); NRBC Flagged by Analyzer 0 % (0-5); Neutrophil % 56.7 % (47-70); Platelet Count 284 K/mm3 (150-450); RBC Distribution Width CV 12.6 % (11.6-14.6); RBC Distribution Width SD 40.8 fl (35.1-43.9); Red Blood Count 4.46 M/mm3 (4.2-5.4); White Blood Count 6.5 K/mm3 (4.4-11.0)
[2019-04-19 15:50] LABS: Anion Gap 6 (5-15); BUN 8 mg/dL (7-18); BUN/Creat Ratio 9.5 RATIO (10-20); Calcium,Total 9.3 mg/dL (8.5-10.1); Chloride 108 mmol/L (98-107); Creatinine, Serum 0.84 mg/dL (0.55-1.02); EST Glomerular Filtration Rate 89 mL/min (>60); Est Glom Filt Rate - Afr Amer 108 mL/min (>60); Estimated Creatinine Clearance 82.38 ml/min; Glucose 98 mg/dL (74-106); Internal QC Validated? YES +Cl - CLEAR BKGD; Potassium 3.6 mmol/L (3.5-5.1); Pregnancy, Serum, hCG Quali. NEGATIVE Negative; Sodium Level 137 mmol/L (136-145)
--- NOTE | 2019-04-19 16:13 | ED.VISSUMM ---
- ER Visit Summary Date of Service: 04/19/19 Chief Complaint: [Right flank pain] History of Present Illness: The patient is a 23 F [presents to the emergency department complaint of pain in the right flank that started suddenly about 2 hours ago. She is never had pain like this before. Patient states that on the way to the hospital she drank a bottle of water and the pain seems to ease off. Pain initially was severe and rated an 8 or 9 out of 10. Currently she has minimal discomfort. Patient did describe some pressure in her bladder and the pain radiated around the lower right quadrant. Patient has no medical history. Patient has had prior cholecystectomy. Patient has allergy to sulfa. She does not smoke. Patient drinks alcohol occasionally. Patient's last menstrual period was 3 weeks ago and her last bowel movement was earlier today.] Physical Examination: [HEENT-PERRLA, EOMI. Cranial nerves II through XII grossly intact. TMs clear. Mucous membranes moist. No adenopathy. Cardiovascular-regular rate and rhythm without murmur or ectopy Lungs-clear to auscultation, chest wall stable without crepitus or subcu emphysema Abdomen-normoactive bowel sounds, soft. Patient has tenderness palpation over right lower quadrant with some guarding. She has a mild CVA tenderness on the right. There is no rebound, rigidity, peritoneal signs. Extremities-intact ?4, normal range of motion, normal pulses, atraumatic] Test Results: [CBC with differential obtained was normal. Chemistries normal. hCG was negative. CT flank showed a 3.6 mm right UVJ stone. Urinalysis unremarkable for infection.] Emergency Department Course and Treatment: [Patient received Toradol in the emergency department and she is comfortable pain whit[place] at this time.] Treatment Plan: [Will be given urine strainers and she did not anything for pain for home as she has narcotic pain medicines from her recent cholecystectomy. Also advised to use ibuprofen as needed for the discomfort. Patient will be given referral to urologist for follow-up.] Disposition: [Discharged home in stable condition] Impression: [Kidney stone with colic] This note was generated with [employer] dictation software. It may contain incorrect words, spelling, and punctuation that were not noted in review of the chart prior to signing ED Disposition - Plan for ED Patient: Referrals: Jacqueline,Leroy Miguelito, MOTEL FRONT DESK CLERK-C [Primary Care Provider] -
--- NOTE | 2019-04-19 16:17 | ED.DEP ---
ED Disposition - Plan for ED Patient: Instructions: KIDNEY STONE w/ Colic Referrals: Leroy Phillips, MERCEDES-C [Primary Care Provider] - Valente Avelar MD [STAFF PHYSICIAN] - 3-5 Days
[2019-04-19 16:35] LABS: Mucous, Urine 0 SEEN /hpf (<or=2+); Red Blood Cells-Urine 0 SEEN /hpf (0-5); Squamous Epithelial Cells - UA 0 SEEN /hpf (5-10); White Blood Cells 0 SEEN /hpf (0-5)
[2019-04-19 16:40] LABS: Color, Urine Straw (Yellow); Glucose, Dipstick Normal (Normal); Ketone-Dipstick Negative (Negative); Leukocyte Esterase-Dipstick Negative /ul (Negative); Nitrite-Dipstick Negative (Negative); Occult Blood-Urine 50 /ul (Negative); Protein-Dipstick Negative (Negative); Urine Bilirubin Dipstick Negative (Negative); Urine Clarity Sl. Cloudy (Clear); Urine Urobilinogen Normal (Normal)
[2019-04-19 17:07] LABS: Bacteria RARE /hpf (None Seen)
[2019-04-19 17:36] VITALS: BP 133/57; PULSE 68; RESP 15; O2SAT 98
== END 2019-04-19 17:38 | disposition home or self-care (01) ==
LOC: ED 15:25
PROVIDERS: Emergency Provider Emergency Medicine; Family Provider Nurse Practitioner Family; PCP Nurse Practitioner Family
DX: N20.0 Calculus of kidney (principal)
CPT/HCPCS: 74176; 80048; 81001; 84703; 85025; 96361; 96374; 99283; J7030; A4216

== ENCOUNTER → 2019-07-07 12:21 | Outpatient (CLI) | payer OTHER, SELFPAY ==
[2019-07-07 14:29] LABS: T4 Free Direct 0.94 ng/dL (0.76-1.46)
== END ==
PROVIDERS: PCP Nurse Practitioner Family; Referring Provider Nurse Practitioner Family; Visit Provider Nurse Practitioner Family
DX: E03.9 Hypothyroidism, unspecified (principal)
CPT/HCPCS: 36415; 84439; 84443

== ENCOUNTER → 2019-10-23 15:12 | Outpatient (CLI) | payer OTHER, SELFPAY ==
[2019-10-23 14:46] VITALS: BMI 33.8
[2019-10-23 15:56] LABS: T4 Free Direct 1.48 ng/dL (0.76-1.46); Thyroid Stim Hormone (TSH) 0.02 uIU/mL (0.358-3.74)
[2019-10-27 01:05] LABS: HPV Reflexed? NOT INDICATED
== END ==
PROVIDERS: PCP Nurse Practitioner Family; Referring Provider Nurse Practitioner Family; Visit Provider Nurse Practitioner Family
DX: E03.9 Hypothyroidism, unspecified (principal)
CPT/HCPCS: 36415; 84439; 84443; 88175; G0145

== ENCOUNTER → 2020-01-23 07:36 | Outpatient (CLI) | payer OTHER, SELFPAY ==
[2019-10-23 14:46] VITALS: BMI 33.8
[2020-01-23 10:19] LABS: T4 Free Direct 0.99 ng/dL (0.76-1.46); Thyroid Stim Hormone (TSH) 6.22 uIU/mL (0.358-3.74)
== END ==
PROVIDERS: PCP Nurse Practitioner Family; Referring Provider Nurse Practitioner Family; Visit Provider Nurse Practitioner Family
DX: E03.9 Hypothyroidism, unspecified (principal)
CPT/HCPCS: 36415; 84439; 84443

== ENCOUNTER → 2020-04-29 11:16 | Outpatient (CLI) | payer OTHER, SELFPAY ==
[2019-10-23 14:46] VITALS: BMI 33.8
[2020-04-29 12:42] LABS: T4 Free Direct 1.12 ng/dL (0.76-1.46); Thyroid Stim Hormone (TSH) 1.74 uIU/mL (0.358-3.74)
== END ==
PROVIDERS: PCP Nurse Practitioner Family; Referring Provider Nurse Practitioner Family; Visit Provider Nurse Practitioner Family
DX: E03.9 Hypothyroidism, unspecified (principal)
CPT/HCPCS: 36415; 84439; 84443

== ENCOUNTER → 2020-10-24 15:24 | Outpatient (CLI) | payer OTHER, SELFPAY ==
[2020-10-24 13:11] VITALS: BMI 33.8
== END ==
PROVIDERS: PCP Nurse Practitioner Family; Referring Provider Obstetrics & Gynecology; Visit Provider Obstetrics & Gynecology
DX: N89.8 Other specified noninflammatory disorders of vagina (principal)
CPT/HCPCS: 87070; 87077; 87205

== ENCOUNTER → 2020-10-29 09:22 | Outpatient (CLI) | payer OTHER, SELFPAY ==
[2020-10-24 13:11] VITALS: BMI 33.8
[2020-10-29 11:24] LABS: T4 Free Direct 1.16 ng/dL (0.76-1.46); Thyroid Stim Hormone (TSH) 2.75 uIU/mL (0.358-3.74)
== END ==
PROVIDERS: PCP Nurse Practitioner Family; Referring Provider Nurse Practitioner Family; Visit Provider Nurse Practitioner Family
DX: E03.9 Hypothyroidism, unspecified (principal)
CPT/HCPCS: 36415; 84439; 84443

== ENCOUNTER → 2020-11-06 13:54 | Outpatient (CLI) | payer OTHER, SELFPAY ==
[2020-10-24 13:11] VITALS: BMI 33.8
[2020-11-08 16:08] LABS: Endomysial Antibody IgA Negative (Negative); Immunoglobulin A 142 mg/dL (87-352)
[2020-11-08 20:19] LABS: H. Pylori Antibody (IgG) 0.17 (0.00-0.79); t-Transglutaminase IgA <2 U/mL (0-3)
== END ==
PROVIDERS: PCP Nurse Practitioner Family; Referring Provider Nurse Practitioner Family; Visit Provider Nurse Practitioner Family
DX: R10.13 Epigastric pain (principal)
CPT/HCPCS: 36415; 82784; 83516; 86255; 86677

== ENCOUNTER → 2020-11-27 09:26 | Outpatient (CLI) | payer OTHER, SELFPAY ==
[2020-10-24 13:11] VITALS: BMI 33.8
--- NOTE | 2020-11-27 09:55 | RAD_ITS ---
EXAMINATION: Air contrast UPPER GI SERIES INDICATION: Female, 25 years mid epigastric pain. Nausea. FLUOROSCOPY TIME (if supplied): (1:15) minutes/seconds. 19 images were obtained. TECHNIQUE: Radiographic and fluoroscopic images of the distal esophagus, stomach, and proximal small intestine were obtained following the oral ingestion of barium. COMPARISON: None. FINDINGS: There is no evidence for organomegaly, abnormal calcifications, or abnormal bowel gas pattern. The psoas margins and flank stripes are normal. The visualized osseous structures are normal. The mucosa of the esophagus, stomach and duodenum is normal in appearance without evidence for stricture, ulceration, mass or diverticulum. There is no evidence for hiatal hernia or gastroesophageal reflux. RAD/Upper GI Dual Contrast IMPRESSION: 1. Normal upper gastrointestinal study. Electronically Signed: Marciano King MD at 12:39 EDT , Service support ,
== END ==
PROVIDERS: PCP Nurse Practitioner Family; Referring Provider Nurse Practitioner Family; Visit Provider Nurse Practitioner Family
DX: R10.13 Epigastric pain (principal)
CPT/HCPCS: 74246

== ENCOUNTER 2020-12-26 17:33 | Outpatient (CLI) | payer OTHER, SELFPAY ==
[2020-12-26] MEDS: 0.9% Saline Lock 10 ML Syringe IV (17:46)
[2020-12-26 17:50] VITALS: BP 124/73; PULSE 86; RESP 16; TEMP 36.9; O2SAT 99; BMI 32.9
[2020-12-26 18:25] VITALS: BP 115/67; PULSE 90; RESP 16; TEMP 36.8; O2SAT 99
[2020-12-26 19:43] VITALS: BP 115/78; PULSE 86; RESP 16; TEMP 37.1; O2SAT 98
== END 2020-12-26 19:25 | disposition home or self-care (01) ==
LOC: MS2OUT 17:33 → MS2 17:34
PROVIDERS: PCP Nurse Practitioner Family; Referring Provider Nurse Practitioner Family; Visit Provider Nurse Practitioner Family
DX: Z23 Encounter for immunization (principal); U07.1 COVID-19
CPT/HCPCS: J7050; M0243; A4216; Q0244

== ENCOUNTER 2021-05-09 09:11 | Outpatient (CLI) | payer OTHER, SELFPAY ==
[2021-05-09 10:46] LABS: ALB/GLOB Ratio 1.1 RATIO (0.9-2.4); AST(SGOT) 10 U/L (15-37); Alanine Aminotransfer ALT/SGPT 22 U/L (13-56); Albumin, Serum 3.8 g/dL (3.2-5.0); Alkaline Phosphatase 108 U/L (45-117); Anion Gap 5 (5-15); BUN 9 mg/dL (7-18); Calcium,Total 8.6 mg/dL (8.5-10.1); Chloride 109 mmol/L (98-107); Cholesterol 166 mg/dL (200); Creatinine, Serum 0.82 mg/dL (0.55-1.02); EST Glomerular Filtration Rate 90 mL/min (>60); Est Glom Filt Rate - Afr Amer 108 mL/min (>60); Globulin 3.5 g/dL (2.2-4.2); Glucose 87 mg/dL (74-106); High Density Lipoprotein 62 mg/dL; Potassium 3.5 mmol/L (3.5-5.1); Protein, Total 7.3 g/dL (6.4-8.2); Sodium Level 138 mmol/L (136-145); T4 Free Direct 0.98 ng/dL (0.76-1.46); Thyroid Stim Hormone (TSH) 2.46 uIU/mL (0.358-3.74); Triglycerides 68 mg/dL; Very Low Density Lipoprotein 14 mg/dL (5-40)
== END 2021-05-09 23:59 | disposition short-term general hospital (02) ==
LOC: LAB 09:14
PROVIDERS: PCP Nurse Practitioner Family; Referring Provider Nurse Practitioner Family; Visit Provider Nurse Practitioner Family
DX: E03.9 Hypothyroidism, unspecified (principal); E04.9 Nontoxic goiter, unspecified; Z13.1 Encounter for screening for diabetes mellitus; Z13.220 Encounter for screening for lipoid disorders
CPT/HCPCS: 36415; 80053; 80061; 84439; 84443

== ENCOUNTER 2021-07-14 17:35 | Outpatient (CLI) | payer OTHER, SELFPAY ==
[2021-07-14 18:14] LABS: Amphetamine Urine VISTA NEGATIVE (<1000 ng/mL); Barbiturate Urine VISTA NEGATIVE (< 200 ng/mL); Benzodiazepine Urine VISTA NEGATIVE (< 200 ng/mL); Cocaine Urine VISTA NEGATIVE (< 300 ng/mL); Ecstacy Urine VISTA NEGATIVE (< 500 ng/mL); Methadone Urine VISTA NEGATIVE (< 300 ng/mL); PCP Urine VISTA NEGATIVE (< 25 ng/mL); THC Urine VISTA NEGATIVE (< 50 ng/mL); Vista UDS pH Range 6
[2021-07-16 22:07] LABS: Chlamydia By Nucleic Acid AMP Negative (Negative)
[2021-07-16 22:12] LABS: Gonococcus By Nucleic Acid AMP Negative (Negative)
== END 2021-07-14 23:59 | disposition home or self-care (01) ==
PROVIDERS: PCP Nurse Practitioner Family; Visit Provider Obstetrics & Gynecology
DX: Z34.90 Encounter for supervision of normal pregnancy, unspecified, unspecified trimester (principal)
CPT/HCPCS: 80307; 87086; 87088; 87491; 87591

== ENCOUNTER → 2021-08-12 | Outpatient (CLI) | payer OTHER, SELFPAY ==
[2021-08-12 10:01] LABS: Absolute Lymphocyte Count 1.79 X10^3/uL (0.83-4.51); Absolute Neutrophil Count 6.1 X10^3/uL (2.0-7.7); Basophil# 0.03 X10^3/uL; Basophil% 0.3 % (0-1); Eosinophil# 0.12 X10^3/uL; Eosinophils% 1.4 % (0-5); Hematocrit 35.6 % (37-47); Hemoglobin 12.1 g/dL (12.0-15.0); Lymphocyte # 1.79 X10^3/ul (0.83-4.51); Lymphocyte % 20.8 % (19-41); Mean Corpuscular Volume 88.3 fL (81-99); Mean Platelet Vol. 10.5 fl (6.2-12.0); Monocyte# 0.52 X10^3/uL; NRBC Flagged by Analyzer 0 % (0-5); Neutrophil # 6.14 X10^3/uL (2.7-7.7); Neutrophil % 71.3 % (47-70); Platelet Count 272 K/mm3 (150-450); RBC Distribution Width CV 12.9 % (11.6-14.6); RBC Distribution Width SD 41.8 fl (35.1-43.9); Red Blood Count 4.03 M/mm3 (4.2-5.4); White Blood Count 8.6 K/mm3 (4.4-11.0)
[2021-08-12 10:23] LABS: Glucose Challenge Gest 1H 50g 112 mg/dL (70-140); T4 Free Direct 1.06 ng/dL (0.76-1.46); Thyroid Stim Hormone (TSH) 2.75 uIU/mL (0.358-3.74)
[2021-08-12 10:45] LABS: NATERA MAILED SPECIMEN
[2021-08-12 11:06] LABS: HIV - WCH Non-Reactive (Nonreactive); Hepatitis B Surface Antigen Non-Reactive (Nonreactive); Hepatitis C Antibody Non-Reactive (Nonreactive); Rubella IgG Reactive (Nonreactive); Syphilis Antibodies Non-reactive
== END | disposition home or self-care (01) ==
LOC: PAVLAB 09:25
PROVIDERS: PCP Nurse Practitioner Family; Referring Provider Obstetrics & Gynecology; Visit Provider Obstetrics & Gynecology
DX: Z34.90 Encounter for supervision of normal pregnancy, unspecified, unspecified trimester (principal)
CPT/HCPCS: 36415; 82950; 84439; 84443; 85025; 86703; 86762; 86780; 86803; 86850; 86900; 86901; 87340

== ENCOUNTER → 2021-11-05 | Outpatient (CLI) | payer BC, SELFPAY ==
[2021-11-05 08:18] LABS: Absolute Lymphocyte Count 2.98 X10^3/uL (0.83-4.51); Absolute Neutrophil Count 7.9 X10^3/uL (2.0-7.7); Basophil# 0.04 X10^3/uL; Basophil% 0.3 % (0-1); Eosinophil# 0.23 X10^3/uL; Eosinophils% 1.9 % (0-5); Hematocrit 32.8 % (37-47); Hemoglobin 11.1 g/dL (12.0-15.0); Lymphocyte # 2.98 X10^3/ul (0.83-4.51); Lymphocyte % 24.8 % (19-41); Mean Corp Hgb Conc 33.8 g/dL (32-36); Mean Corpuscular Hgb 30.4 pg (27.0-32.0); Mean Corpuscular Volume 89.9 fL (81-99); Mean Platelet Vol. 10.1 fl (6.2-12.0); Monocyte# 0.79 X10^3/uL; Monocyte% 6.6 % (0-10); NRBC Flagged by Analyzer 0 % (0-5); Neutrophil # 7.92 X10^3/uL (2.7-7.7); Neutrophil % 65.7 % (47-70); Platelet Count 317 K/mm3 (150-450); RBC Distribution Width CV 12.8 % (11.6-14.6); RBC Distribution Width SD 41.8 fl (35.1-43.9); Red Blood Count 3.65 M/mm3 (4.2-5.4)
[2021-11-05 08:42] LABS: Free T3 1.8 pg/mL (2.18-3.98); Glucose Challenge Gest 1H 50g 132 mg/dL (70-140); T4 Free Direct 0.93 ng/dL (0.76-1.46); Thyroid Stim Hormone (TSH) 4.54 uIU/mL (0.358-3.74)
== END | disposition home or self-care (01) ==
PROVIDERS: Obstetrics & Gynecology; PCP Nurse Practitioner Family; Referring Provider Nurse Practitioner Family; Visit Provider Nurse Practitioner Family
DX: J30.2 Other seasonal allergic rhinitis (principal); R63.8 Other symptoms and signs concerning food and fluid intake; E03.9 Hypothyroidism, unspecified; E04.9 Nontoxic goiter, unspecified
CPT/HCPCS: 36415; 82950; 84439; 84443; 84481; 85025

== ENCOUNTER 2021-12-18 20:14 | Outpatient (CLI) | payer BC, SELFPAY ==
[2021-12-18] VITALS (12 sets, daily range): BP systolic 134–149; BP diastolic 77–98; PULSE 65–89; TEMP 36.2; O2SAT 97–98; BMI 37.1
[2021-12-18] MEDS: Lactated Ringers 1,000 ML 999 ML IV (21:10)
[2021-12-18 21:27] LABS: Absolute Lymphocyte Count 2.25 X10^3/uL (0.83-4.51); Absolute Neutrophil Count 7.8 X10^3/uL (2.0-7.7); Basophil# 0.02 X10^3/uL; Basophil% 0.2 % (0-1); Eosinophil# 0.07 X10^3/uL; Eosinophils% 0.6 % (0-5); Hematocrit 31.7 % (37-47); Hemoglobin 10.6 g/dL (12.0-15.0); Lymphocyte # 2.25 X10^3/ul (0.83-4.51); Lymphocyte % 20.3 % (19-41); Mean Corp Hgb Conc 33.4 g/dL (32-36); Mean Corpuscular Hgb 29.6 pg (27.0-32.0); Mean Corpuscular Volume 88.5 fL (81-99); Mean Platelet Vol. 10.7 fl (6.2-12.0); Monocyte# 0.91 X10^3/uL; Monocyte% 8.2 % (0-10); NRBC Flagged by Analyzer 0 % (0-5); Neutrophil # 7.76 X10^3/uL (2.7-7.7); Neutrophil % 70.1 % (47-70); Platelet Count 325 K/mm3 (150-450); RBC Distribution Width CV 12.8 % (11.6-14.6); RBC Distribution Width SD 41.3 fl (35.1-43.9); Red Blood Count 3.58 M/mm3 (4.2-5.4); White Blood Count 11.1 K/mm3 (4.4-11.0)
[2021-12-18 21:43] LABS: Protein, Urine (Random) 25.2 mg/dL (<11.9); Protein:Creat Ratio 897 mg/g CRE (0-200)
[2021-12-18 21:45] LABS: ALB/GLOB Ratio 0.7 RATIO (0.9-2.4); AST(SGOT) 13 U/L (15-37); Alanine Aminotransfer ALT/SGPT 23 U/L (13-56); Albumin, Serum 2.6 g/dL (3.2-5.0); Alkaline Phosphatase 180 U/L (45-117); Anion Gap 7 (5-15); BUN 5 mg/dL (7-18); BUN/Creat Ratio 7.4 RATIO (10-20); Calcium,Total 9.3 mg/dL (8.5-10.1); Chloride 108 mmol/L (98-107); Creatinine, Serum 0.68 mg/dL (0.55-1.02); EST Glomerular Filtration Rate 111 mL/min (>60); Est Glom Filt Rate - Afr Amer 134 mL/min (>60); Estimated Creatinine Clearance 99.16 ml/min; Globulin 3.8 g/dL (2.2-4.2); Glucose 98 mg/dL (74-106); Potassium 3.3 mmol/L (3.5-5.1); Protein, Total 6.4 g/dL (6.4-8.2); Sodium Level 141 mmol/L (136-145)
[2021-12-18] MEDS: Betamethasone/Betamethasone 30 MG/5 ML Vial 12 MG IM (22:45)
--- NOTE | 2021-12-23 03:30 | OB.TRI.PN ---
Progress Notes Date of Service: 12/18/21 Progress Note: Patient presents for triage evaluation secondary to constipation FHT: 140 Moderate variability reactive no decelerations category I tracing Caruthers: no rgular Contractions Assessment and plan: initial elevated bps and repeats WNL elevated protein in urine, given celestone. recommend following bps as op for possible preeclampsia Reactive NST, reassuring maternal and status patient discharged to home to follow-up next week. See problem list details for additional plan information. Laboratory Studies: Laboratory Tests 12/18/21 12/18/21 12/18/21 Range/Units 21:10 21:10 21:10 WBC 11.1 H (4.4-11.0) K/mm3 RBC 3.58 L (4.2-5.4) M/mm3 Hgb 10.6 L (12.0-15.0) g/dL Hct 31.7 L (37-47) % MCV 88.5 (81-99) fL MCH 29.6 (27.0-32.0) pg MCHC 33.4 (32-36) g/dL RDW Std Deviation 41.3 (35.1-43.9) fl RDW Coeff of Maria R 12.8 (11.6-14.6) % Plt Count 325 (150-450) K/mm3 MPV 10.7 (6.2-12.0) fl Immature Gran % (Auto) 0.600 (0.0-0.9) % Neut % (Auto) 70.1 H (47-70) % Lymph % (Auto) 20.3 (19-41) % Christian % (Auto) 8.2 (0-10) % Eos % (Auto) 0.6 (0-5) % Baso % (Auto) 0.2 (0-1) % Absolute Neuts (auto) 7.8 H (2.0-7.7) X10^3/uL Absolute Lymphs (auto) 2.25 (0.83-4.51) X10^3/uL Nucleated RBC % 0 (0-5) % Sodium 141 (136-145) mmol/L Potassium 3.3 L (3.5-5.1) mmol/L Chloride 108 H (98-107) mmol/L Carbon Dioxide 26.0 (21.0-32.0) mmol/L Anion Gap 7 (5-15) BUN 5 L (7-18) mg/dL Creatinine 0.68 (0.55-1.02) mg/dL Estim Creat Clear Calc 99.16 ml/min Est GFR (MDRD) Af Amer 134 (>60) mL/min Est GFR (MDRD) Non-Af 111 (>60) mL/min BUN/Creatinine Ratio 7.4 L (10-20) RATIO Glucose 98 (74-106) mg/dL Calcium 9.3 (8.5-10.1) mg/dL Total Bilirubin 0.30 (0.20-1.00) mg/dL AST 13 L (15-37) U/L ALT 23 (13-56) U/L Alkaline Phosphatase 180 H (45-117) U/L Total Protein 6.4 (6.4-8.2) g/dL Albumin 2.6 L (3.2-5.0) g/dL Globulin 3.8 (2.2-4.2) g/dL Albumin/Globulin Ratio 0.7 L (0.9-2.4) RATIO U Random Total Protein 25.2 H (<11.9) mg/dL Urine Creatinine 28.10 (NO RANGE EST.) mg/dL Protein/Creatinin Ratio 897 H (0-200) mg/g CRE Charges/Coding Procedures Urinary/Genital [id number]: [id number] non-stress test Interp Multi Select Codes Visit Charges Office Visit/Consults: 81085 OV L3 Est Assessment & Plan (1) Mild pre-eclampsia affecting first : COMMENT: borderline bps but abnormal protein in urine. given BMZ x 1 12/18. repeat labs when in office next, determine complete diagnosis and fu testing
== END 2021-12-18 22:48 | disposition home or self-care (01) ==
LOC: WPOUT 20:15 → WP 20:16
PROVIDERS: PCP Nurse Practitioner Family; Visit Provider Obstetrics & Gynecology
DX: O14.00 Mild to moderate pre-eclampsia, unspecified trimester (principal); Z79.899 Other long term (current) drug therapy; Z3A.00 Weeks of gestation of pregnancy not specified
CPT/HCPCS: 96365; 36415; 59025; 59050; 80053; 82570; 84156; 85025; 96372; 99218; J7120; G0378; J0702

== ENCOUNTER → 2021-12-22 | Outpatient (CLI) | payer BC, SELFPAY ==
--- NOTE | 2021-12-22 08:00 | US_ITS ---
STUDY: SECOND AND THIRD TRIMESTER OBSTETRICAL ULTRASOUND - LIMITED REASON FOR EXAM: Female, 26 years old growth LMP: 05/11/2021. PRIOR ULTRASOUND: None. TECHNIQUE: Transabdominal TECHNICAL QUALITY: Adequate. FINDINGS: There is a single intrauterine fetus. The fetus is in a cephalic presentation. There is demonstrated cardiac activity with a heart rate of 136 bpm. There is a normal amniotic fluid volume. The largest amniotic fluid pocket measures 4.4 cm. The amniotic fluid index (KAYLA) is 10.7 cm. The placenta is anterior in location and is not low lying. There are Grade 1 placental changes. The cervix measures 4.2 cm in length. BIOMETRY: BPD: 8.1 cm: 32 weeks, 2 days HC: 29.6 cm: 32 weeks, 5 days AC: 28 cm: 32 weeks, 0 days FL: 6 cm: 31 weeks, 2 days Age by LMP: 32 weeks, 1 days. CAMMY by LMP: 02/15/2022. age by current US: 32 weeks, 1 days. CAMMY by current US: 02/15/2022. Estimated weight: 1866 grams, +/- 280 grams, 33 percentile. US/OB Limited With Biometrics IMPRESSION: Single live intrauterine gestation with a mean gestational age of 32 weeks and 1 day. Electronically Signed: Marciano King MD at 14:48 EDT ,
== END | disposition home or self-care (01) ==
PROVIDERS: PCP Nurse Practitioner Family; Referring Provider Obstetrics & Gynecology; Visit Provider Obstetrics & Gynecology
DX: O98.519 Other viral diseases complicating pregnancy, unspecified trimester (principal); U07.1 COVID-19; Z3A.00 Weeks of gestation of pregnancy not specified
CPT/HCPCS: 76816

== ENCOUNTER → 2021-12-23 | Outpatient (CLI) | payer BC, SELFPAY ==
[2021-12-23 10:06] LABS: Absolute Lymphocyte Count 2.18 X10^3/uL (0.83-4.51); Absolute Neutrophil Count 8.8 X10^3/uL (2.0-7.7); Basophil# 0.03 X10^3/uL; Basophil% 0.2 % (0-1); Eosinophil# 0.17 X10^3/uL; Eosinophils% 1.4 % (0-5); Hematocrit 33.7 % (37-47); Hemoglobin 11.3 g/dL (12.0-15.0); Lymphocyte # 2.18 X10^3/ul (0.83-4.51); Lymphocyte % 18.1 % (19-41); Mean Corp Hgb Conc 33.5 g/dL (32-36); Mean Corpuscular Hgb 30.1 pg (27.0-32.0); Mean Corpuscular Volume 89.9 fL (81-99); Mean Platelet Vol. 10.4 fl (6.2-12.0); Monocyte# 0.79 X10^3/uL; Monocyte% 6.6 % (0-10); NRBC Flagged by Analyzer 0 % (0-5); Neutrophil # 8.79 X10^3/uL (2.7-7.7); Neutrophil % 73.2 % (47-70); Platelet Count 312 K/mm3 (150-450); RBC Distribution Width CV 12.7 % (11.6-14.6); RBC Distribution Width SD 41.9 fl (35.1-43.9); Red Blood Count 3.75 M/mm3 (4.2-5.4)
[2021-12-23 10:43] LABS: ALB/GLOB Ratio 0.6 RATIO (0.9-2.4); AST(SGOT) 12 U/L (15-37); Alanine Aminotransfer ALT/SGPT 23 U/L (13-56); Albumin, Serum 2.7 g/dL (3.2-5.0); Alkaline Phosphatase 183 U/L (45-117); Anion Gap 7 (5-15); BUN 6 mg/dL (7-18); Chloride 108 mmol/L (98-107); Creatinine, Serum 0.66 mg/dL (0.55-1.02); EST Glomerular Filtration Rate 114 mL/min (>60); Est Glom Filt Rate - Afr Amer 138 mL/min (>60); Globulin 4.3 g/dL (2.2-4.2); Glucose 82 mg/dL (74-106); Potassium 3.4 mmol/L (3.5-5.1); Sodium Level 139 mmol/L (136-145)
[2021-12-23 11:27] LABS: Protein:Creat Ratio 326 mg/g CRE (0-200)
== END | disposition home or self-care (01) ==
PROVIDERS: PCP Nurse Practitioner Family; Referring Provider Obstetrics & Gynecology; Visit Provider Obstetrics & Gynecology
DX: O14.00 Mild to moderate pre-eclampsia, unspecified trimester (principal); Z3A.00 Weeks of gestation of pregnancy not specified
CPT/HCPCS: 36415; 80053; 82570; 84156; 85025

== ENCOUNTER → 2021-12-26 | Outpatient (CLI) | payer BC, SELFPAY ==
[2021-12-26 13:30] LABS: T4 Free Direct 1.09 ng/dL (0.76-1.46); Thyroid Stim Hormone (TSH) 7.41 uIU/mL (0.358-3.74)
[2021-12-26 17:12] LABS: Protein, Urine (Random) 16.9 mg/dL (<11.9); Protein:Creat Ratio 301 mg/g CRE (0-200)
== END | disposition home or self-care (01) ==
PROVIDERS: PCP Nurse Practitioner Family; Referring Provider Obstetrics & Gynecology; Visit Provider Obstetrics & Gynecology
DX: O14.00 Mild to moderate pre-eclampsia, unspecified trimester (principal); O99.280 Endocrine, nutritional and metabolic diseases complicating pregnancy, unspecified trimester; E03.9 Hypothyroidism, unspecified; Z3A.00 Weeks of gestation of pregnancy not specified
CPT/HCPCS: 36415; 82570; 84156; 84439; 84443

== ENCOUNTER → 2022-01-01 | Outpatient (CLI) | payer BC, SELFPAY ==
[2022-01-01 11:27] LABS: Protein, Urine (Random) 9.4 mg/dL (<11.9); Protein:Creat Ratio 364 mg/g CRE (0-200)
[2022-01-01 11:54] LABS: Absolute Lymphocyte Count 2.88 X10^3/uL (0.83-4.51); Absolute Neutrophil Count 8.9 X10^3/uL (2.0-7.7); Basophil# 0.06 X10^3/uL; Basophil% 0.4 % (0-1); Eosinophil# 0.15 X10^3/uL; Eosinophils% 1.1 % (0-5); Hematocrit 34.7 % (37-47); Hemoglobin 11.2 g/dL (12.0-15.0); Lymphocyte # 2.88 X10^3/ul (0.83-4.51); Lymphocyte % 21.6 % (19-41); Mean Corp Hgb Conc 32.3 g/dL (32-36); Mean Corpuscular Volume 89.9 fL (81-99); Mean Platelet Vol. 10.5 fl (6.2-12.0); Monocyte# 1.25 X10^3/uL; Monocyte% 9.4 % (0-10); NRBC Flagged by Analyzer 0 % (0-5); Neutrophil # 8.92 X10^3/uL (2.7-7.7); Neutrophil % 66.8 % (47-70); Platelet Count 384 K/mm3 (150-450); RBC Distribution Width CV 12.7 % (11.6-14.6); RBC Distribution Width SD 41.7 fl (35.1-43.9); Red Blood Count 3.86 M/mm3 (4.2-5.4); White Blood Count 13.4 K/mm3 (4.4-11.0)
[2022-01-01 12:12] LABS: ALB/GLOB Ratio 0.7 RATIO (0.9-2.4); AST(SGOT) 8 U/L (15-37); Alanine Aminotransfer ALT/SGPT 18 U/L (13-56); Albumin, Serum 2.8 g/dL (3.2-5.0); Alkaline Phosphatase 187 U/L (45-117); Anion Gap 9 (5-15); BUN 8 mg/dL (7-18); Calcium,Total 9.3 mg/dL (8.5-10.1); Chloride 108 mmol/L (98-107); Creatinine, Serum 0.62 mg/dL (0.55-1.02); EST Glomerular Filtration Rate 124 mL/min (>60); Est Glom Filt Rate - Afr Amer 151 mL/min (>60); Globulin 3.9 g/dL (2.2-4.2); Glucose 74 mg/dL (74-106); Potassium 3.6 mmol/L (3.5-5.1); Protein, Total 6.7 g/dL (6.4-8.2); Sodium Level 140 mmol/L (136-145); T4 Free Direct 1.04 ng/dL (0.76-1.46); Thyroid Stim Hormone (TSH) 3.32 uIU/mL (0.358-3.74)
== END | disposition home or self-care (01) ==
PROVIDERS: PCP Nurse Practitioner Family; Referring Provider Obstetrics & Gynecology; Visit Provider Obstetrics & Gynecology
DX: O12.10 Gestational proteinuria, unspecified trimester (principal); Z3A.00 Weeks of gestation of pregnancy not specified
CPT/HCPCS: 36415; 80053; 82570; 84156; 84439; 84443; 85025

== ENCOUNTER → 2022-01-08 | Outpatient (CLI) | payer BC, SELFPAY ==
[2022-01-08 09:23] LABS: Absolute Lymphocyte Count 2.64 X10^3/uL (0.83-4.51); Absolute Neutrophil Count 8.4 X10^3/uL (2.0-7.7); Basophil# 0.05 X10^3/uL; Basophil% 0.4 % (0-1); Eosinophil# 0.17 X10^3/uL; Eosinophils% 1.4 % (0-5); Hematocrit 34.8 % (37-47); Hemoglobin 11.5 g/dL (12.0-15.0); Lymphocyte # 2.64 X10^3/ul (0.83-4.51); Lymphocyte % 21.3 % (19-41); Mean Corpuscular Hgb 29.6 pg (27.0-32.0); Mean Corpuscular Volume 89.7 fL (81-99); Mean Platelet Vol. 10.2 fl (6.2-12.0); Monocyte# 1.03 X10^3/uL; Monocyte% 8.3 % (0-10); NRBC Flagged by Analyzer 0 % (0-5); Neutrophil # 8.44 X10^3/uL (2.7-7.7); Neutrophil % 68.2 % (47-70); Platelet Count 330 K/mm3 (150-450); RBC Distribution Width CV 13.1 % (11.6-14.6); RBC Distribution Width SD 42.3 fl (35.1-43.9); Red Blood Count 3.88 M/mm3 (4.2-5.4); White Blood Count 12.4 K/mm3 (4.4-11.0)
[2022-01-08 09:51] LABS: ALB/GLOB Ratio 0.6 RATIO (0.9-2.4); AST(SGOT) 10 U/L (15-37); Alanine Aminotransfer ALT/SGPT 19 U/L (13-56); Albumin, Serum 2.7 g/dL (3.2-5.0); Alkaline Phosphatase 199 U/L (45-117); Anion Gap 7 (5-15); BUN 6 mg/dL (7-18); BUN/Creat Ratio 9.8 RATIO (10-20); Calcium,Total 9.7 mg/dL (8.5-10.1); Chloride 111 mmol/L (98-107); Creatinine, Serum 0.61 mg/dL (0.55-1.02); EST Glomerular Filtration Rate 125 mL/min (>60); Est Glom Filt Rate - Afr Amer 152 mL/min (>60); Globulin 4.3 g/dL (2.2-4.2); Glucose 93 mg/dL (74-106); Potassium 3.5 mmol/L (3.5-5.1); Sodium Level 142 mmol/L (136-145)
== END | disposition home or self-care (01) ==
LOC: PAVLAB 09:12
PROVIDERS: PCP Nurse Practitioner Family; Referring Provider Obstetrics & Gynecology; Visit Provider Obstetrics & Gynecology
DX: O12.10 Gestational proteinuria, unspecified trimester (principal); O99.280 Endocrine, nutritional and metabolic diseases complicating pregnancy, unspecified trimester; E03.9 Hypothyroidism, unspecified
CPT/HCPCS: 36415; 80053; 85025

== ENCOUNTER → 2022-01-08 | Outpatient (CLI) | payer BC, SELFPAY ==
[2022-01-08 08:44] LABS: Protein, Urine (Random) 15.2 mg/dL (<11.9); Protein:Creat Ratio 346 mg/g CRE (0-200)
== END | disposition home or self-care (01) ==
LOC: LABSPEC 08:28
PROVIDERS: PCP Nurse Practitioner Family; Referring Provider Obstetrics & Gynecology; Visit Provider Obstetrics & Gynecology
DX: O12.10 Gestational proteinuria, unspecified trimester (principal); O99.280 Endocrine, nutritional and metabolic diseases complicating pregnancy, unspecified trimester; E03.9 Hypothyroidism, unspecified
CPT/HCPCS: 82570; 84156

== ENCOUNTER → 2022-01-14 | Outpatient (CLI) | payer BC, SELFPAY ==
[2022-01-14 16:02] LABS: T4 Free Direct 1.19 ng/dL (0.76-1.46)
== END | disposition home or self-care (01) ==
LOC: PAVLAB 15:17
PROVIDERS: PCP Nurse Practitioner Family; Referring Provider Obstetrics & Gynecology; Visit Provider Obstetrics & Gynecology
DX: E03.9 Hypothyroidism, unspecified (principal)
CPT/HCPCS: 36415; 84439

== ENCOUNTER → 2022-01-19 | Outpatient (CLI) | payer BC, SELFPAY ==
--- NOTE | 2022-01-19 08:47 | US_ITS ---
STUDY: SECOND AND THIRD TRIMESTER OBSTETRICAL ULTRASOUND REASON FOR EXAM: Female, 26 years old growth , well being LMP: 05/11/2021 TECHNIQUE: Transabdominal TECHNICAL QUALITY: Adequate. PRIOR ULTRASOUND: Comparison is made with prior study dated 12/22/2021. FINDINGS: There is a single intrauterine fetus. The fetus is in a cephalic presentation. There is demonstrated cardiac activity with a heart rate of 150 bpm. There is a normal amniotic fluid volume. The largest amniotic fluid pocket measures 3.6 cm. The amniotic fluid index (KAYLA) is 10.2 cm. The placenta is fundal and posterior in location. There are Grade 1 placental changes. The cervical length was not measured due to the head position. The adnexal regions are not visualized. BIOMETRY: BPD: 8.6 cm: 34 weeks, 4 days HC: 32 cm: 36 weeks, 0 days AC: 33.5 cm: 37 weeks, 3 days FL: 6.6 cm: 34 weeks, 0 days CI: 77% FL/BPD: 77% FL/HC: FL/AC: 20% HC/AC: 0.95 age by current US: 35 weeks, 3 days. CAMMY by current US: 02/20/2022. Estimated weight: 2856 grams, +/- 428 grams, 51 %. age by prior US: 36 weeks, 1 days. CAMMY by prior US: 02/16/2020. Age by LMP: 36 weeks, 1 days. CAMMY by LMP: 02/15/2022. IMPRESSION: Single live intrauterine gestation with a mean gestational age of 36 weeks and 1 day. The measurements obtained today fall within the normal expected range. Electronically Signed: Marciano King MD at 13:50 EDT , STUDY: OBSTETRICAL ULTRASOUND - BIOPHYSICAL PROFILE REASON FOR EXAM: Female, 26 years old growth , well being LMP: 05/11/2021. PRIOR ULTRASOUND: 12/22/2021 TECHNIQUE: Transabdominal TECHNICAL QUALITY: Adequate. FINDINGS: There is a single intrauterine fetus. The fetus is in a cephalic presentation. There is demonstrated cardiac activity with a heart rate of 150 bpm. There is a normal amniotic fluid volume. The largest amniotic fluid pocket measures 3.6 cm. The amniotic fluid index (KAYLA) is 10 point cm. The placenta is fundal and posterior in location. There are Grade 1 placental changes. BIOPHYSICAL PROFILE: Breathing Movements (FBM): 2 Gross Body Movements (GBM): 2 Tone (FT): 2 Amniotic Fluid Volume (AFV): 2 TOTAL SCORE: US/OB Limited With Biometrics IMPRESSION: Normal biophysical profile of 11/17. Electronically Signed: Marciano King MD at 13:51 EDT ,
[2022-01-19 08:52] LABS: Absolute Lymphocyte Count 2.73 X10^3/uL (0.83-4.51); Absolute Neutrophil Count 5.7 X10^3/uL (2.0-7.7); Basophil# 0.04 X10^3/uL; Basophil% 0.4 % (0-1); Eosinophil# 0.25 X10^3/uL; Eosinophils% 2.7 % (0-5); Hematocrit 32.4 % (37-47); Hemoglobin 10.9 g/dL (12.0-15.0); Lymphocyte # 2.73 X10^3/ul (0.83-4.51); Lymphocyte % 29.2 % (19-41); Mean Corp Hgb Conc 33.6 g/dL (32-36); Mean Corpuscular Hgb 29.6 pg (27.0-32.0); Mean Platelet Vol. 10.8 fl (6.2-12.0); Monocyte# 0.62 X10^3/uL; Monocyte% 6.6 % (0-10); NRBC Flagged by Analyzer 0 % (0-5); Neutrophil # 5.66 X10^3/uL (2.7-7.7); Neutrophil % 60.7 % (47-70); Platelet Count 319 K/mm3 (150-450); RBC Distribution Width SD 41.4 fl (35.1-43.9); Red Blood Count 3.68 M/mm3 (4.2-5.4); White Blood Count 9.3 K/mm3 (4.4-11.0)
[2022-01-19 09:41] LABS: ALB/GLOB Ratio 0.6 RATIO (0.9-2.4); AST(SGOT) 10 U/L (15-37); Alanine Aminotransfer ALT/SGPT 16 U/L (13-56); Albumin, Serum 2.3 g/dL (3.2-5.0); Alkaline Phosphatase 195 U/L (45-117); Anion Gap 10 (5-15); BUN 4 mg/dL (7-18); BUN/Creat Ratio 6.1 RATIO (10-20); Calcium,Total 8.6 mg/dL (8.5-10.1); Chloride 110 mmol/L (98-107); Creatinine, Serum 0.66 mg/dL (0.55-1.02); EST Glomerular Filtration Rate 116 mL/min (>60); Est Glom Filt Rate - Afr Amer 140 mL/min (>60); Globulin 3.9 g/dL (2.2-4.2); Glucose 127 mg/dL (74-106); Potassium 3.3 mmol/L (3.5-5.1); Protein, Total 6.2 g/dL (6.4-8.2); Sodium Level 139 mmol/L (136-145)
[2022-01-19 10:20] LABS: Thyroid Stim Hormone (TSH) 2.44 uIU/mL (0.358-3.74)
== END | disposition home or self-care (01) ==
PROVIDERS: Obstetrics & Gynecology; PCP Nurse Practitioner Family; Referring Provider Obstetrics & Gynecology; Visit Provider Obstetrics & Gynecology
DX: O12.10 Gestational proteinuria, unspecified trimester (principal); O99.280 Endocrine, nutritional and metabolic diseases complicating pregnancy, unspecified trimester; E03.9 Hypothyroidism, unspecified; Z3A.00 Weeks of gestation of pregnancy not specified
CPT/HCPCS: 36415; 76816; 76819; 80053; 84443; 85025; 87081

== ENCOUNTER 2022-01-21 15:45 | Outpatient (CLI) | payer BC, SELFPAY ==
[2022-01-21] VITALS (50 sets, daily range): BP systolic 130–142; BP diastolic 71–80; PULSE 112–132; RESP 16; TEMP 37.3–38.7; O2SAT 93–100; BMI 37.2; BMI 37.1
[2022-01-21] MEDS: Lactated Ringers 1,000 ML 999 ML IV ×2 (16:35→17:35)
[2022-01-21] MEDS: Ondansetron 4 MG/2 ML Vial IV (16:43)
[2022-01-21] MEDS: 0.9 % NaCl (Sterile) Posiflush 10 mL IV (16:43)
[2022-01-21 16:50] LABS: Hematocrit 32.3 % (37-47); Hemoglobin 10.5 g/dL (12.0-15.0); Mean Corp Hgb Conc 32.5 g/dL (32-36); Mean Corpuscular Hgb 28.4 pg (27.0-32.0); Mean Corpuscular Volume 87.3 fL (81-99); Mean Platelet Vol. 10.7 fl (6.2-12.0); Platelet Count 303 K/mm3 (150-450); RBC Distribution Width CV 13.1 % (11.6-14.6); RBC Distribution Width SD 41.3 fl (35.1-43.9); White Blood Count 7.2 K/mm3 (4.4-11.0)
[2022-01-21 17:20] LABS: AST(SGOT) 29 U/L (15-37); Alanine Aminotransfer ALT/SGPT 24 U/L (13-56); Creatinine, Serum 0.59 mg/dL (0.55-1.02); EST Glomerular Filtration Rate 131 mL/min (>60); Est Glom Filt Rate - Afr Amer 158 mL/min (>60); Estimated Creatinine Clearance 114.28 ml/min; Protein, Urine (Random) 60.3 mg/dL (<11.9); Protein:Creat Ratio 328 mg/g CRE (0-200)
[2022-01-21] MEDS: Acetaminophen 500 MG Tablet 1000 MG PO (19:01)
--- NOTE | 2022-01-21 23:17 | OB.TRI.HP_ITS ---
HPI - General General Date of Admission: 01/21/22 Chief Complaint: Nausea, vomiting, diarrhea, fever HPI Narrative JESSIKA CRAIN, is a 26 y/o @ 36 weeks 3 days who presents to L&D with a fever of 101.3, body aches, headache, chills, nausea, vomiting, and diarrhea. She denies sick contacts that she knows of. Her COVID test at home today was negative. Initially her heart rate was in the 130's and baby heart rate was 150's-180's with minimal variability. Blood pressure was mildly elevated in the ER before she was sent to L&D at 140's/80's. Maternal Data Information CAMMY Calculator Estimated Delivery Date Method Current WG Current Estimate 02/15/22 LMP (Certain) 36w 4d Other Estimates 02/13/22 Ultrasound #1 36w 6d [facility] Medical History (Updated 01/22/22 @ 08:[address] Paz Hernández, DO) Abdominal pain Allergies COVID-19 History of COVID-19 Hypothyroid Ileus Home Medications levocetirizine 5 mg tablet (Xyzal) 5 mg PO DAILY Check with primary doctor 02/17/19 [History Last Taken 01/21/22 15:00] montelukast 10 mg tablet (Singulair) 10 mg PO QPM asthma 02/17/19 [History Last Taken 01/21/22 15:00] budesonide-formoterol HFA 160 mcg-4.5 mcg/actuation aerosol inhaler (Symbicort) 2 puff inhalation BID 12/26/20 [History Last Taken 12/26/20] prenat.vits,moe,xxw-hcjr-alvne 1 tab PO DAILY 06/30/21 [History Last Taken 01/20/22 21:00] famotidine 40 mg tablet (Pepcid) 40 mg PO BID #60 tabs 12/16/21 [Rx Last Taken 01/21/22 12:00] levothyroxine 88 mcg capsule 88 mcg PO DAILY #30 caps 12/23/21 [Rx Last Taken 01/21/22 15:00] Allergy/AdvReac Type Severity Reaction Status Date / Time Sulfa (Sulfonamide Allergy Mild Rash Verified 01/21/22 16:18 Antibiotics) Surgical History History of cholecystectomy S/P tonsillectomy Social History household members: spouse number of children: 0 current occupational status: employed 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 [employer] history of recent travel: No sexually active: Yes Smoking Status: Never smoker alcohol intake: current alcohol intake frequency: holidays/special occasions only details: not while substance use type: does not use what type of physical activity do you participate in: none seatbelt use: always do you feel safe at home: Yes additional social history: Spouse - Mikey Santiago History 1 Elective abortions Hx Para 0 Spontaneous abortions Hx # Term Pregnancies Ectopic pregnancies Hx # Pregnancies Multiple births # of living children Visit Details Expected Delivery Route/Plan Labor Preferences- CB/BF classes: yes labor support person: Mikey labor intervention preferences: pain management options preferred: epidural cut cord/dad catch: no : yes PP control planned: discussed discussed possible routes of delivery and associated risks: [] special requests: [] Plans Covid status: immune Flu vaccine: discussed Tdap vaccine: given Rhogam: na LARC form signed: yes Problem list reviewed and updated with the most current plan of care details and appropriate orders placed. Relevant counseling for the gestational age provided. Continue routine care and follow up unless otherwise noted in visit notes/problem list details OB Flowsheet Initial Weight: Not Recorded Date -?-?-?-?-?-?-?-?-?-?-?-?- EGA Weight BP Urine Prot -?-?-?-?-?-?-?-?-?-?-?-?- Glucose FHR FuHt Pres Dilation -?-?-?-?-?-?-?-?-?-?-?-?- Effaced St Visit Note 07/14/21 -?-?-?-?-?-?-?-?-?-?-?-?- 9w 1d 198 lb 6 oz 126/80 -?-?-?-?-?-?-?-?-?-?-?-?- 180 -?-?-?-?-?-?-?-?-?-?-?-?- SM- CRL 2.4cm co ns with LMP 08/12/21 -?-?-?-?-?-?-?-?-?-?-?-?- 13w 2d 197 lb 6 oz 123/81 Nega tive -?-?-?-?-?-?-?-?-?-?-?-?- Negative 147 -?-?-?-?-?-?-?-?-?-?-?-?- JV- no lof, vagi nal bleeding, or cramping. no complaints other than using the restroom often. She did her glucola and nipt today. 09/12/21 -?-?-?-?-?-?-?-?-?-?-?-?- 17w 5d 201 lb 132/88 Negative -?-?-?-?-?-?-?-?-?-?-?-?- Negative 140 -?-?-?-?-?-?-?-?-?-?-?-?- JV- no lof, vagi nal bleeding, or cramping. anatomy scan ordered 10/10/21 -?-?-?-?-?-?-?-?-?-?-?-?- 21w 5d 197 lb 2 oz 110/88 Nega tive -?-?-?-?-?-?-?-?-?-?-?-?- Negative 151 -?-?-?-?-?-?-?-?-?-?-?-?- JV- no lof, vagi nal bleeding, or cramping. indigestion is bad. starting pepcid 40 mg bid. she has a predisposition for GERD. 11/05/21 -?-?-?-?-?-?-?-?-?-?-?-?- 25w 3d 200 lb 114/78 -?-?-?-?-?-?-?-?-?-?-?-?- 137 -?-?-?-?-?-?-?-?-?-?-?-?- JV- no lof, v ag inal bleeding, or dec fm. glucola done today and pending. normal cbc. pnl reviewed. 11/25/21 -?-?-?-?-?-?-?-?-?-?-?-?- 28w 2d 199 lb 4 oz 126/78 Trac e -?-?-?-?-?-?-?-?-?--?-?-?- Negative 154 28 -?-?-?-?-?-?-?-?-?-?-?-?- MH-No VB, LOF. G ood FM. tdap, larc. 12/09/21 -?-?-?-?-?-?-?-?-?-?-?-?- 30w 2d 201 lb 6 oz 114/86 Nega tive -?-?-?-?-?-?-?-?-?-?-?-?- Negative 130 30 -?-?-?-?-?-?-?-?-?-?-?-?- SM- no vb lof go od fm no regular ctx 12/23/21 -?-?-?-?-?-?-?-?-?-?-?-?- 32w 2d 202 lb 2 oz 126/85 Nega tive -?-?-?-?-?-?-?-?-?-?-?-?- Negative 140 33 -?-?-?-?-?-?-?-?-?-?-?-?- SM- no vb lof go od fm no regular ctx SM- no vb lof good fm no reg ular ctx repeat BP at home nl to mildly elevated dependent on psotiion. 12/26/21 -?-?-?-?-?-?-?-?-?-?-?-?- 32w 5d 201 lb 6 oz 114/81 114/81 Negative -?-?-?-?-?-?-?-?-?-?-?-?- Negative 145 -?-?-?-?-?-?-?-?-?-?-?-?- JV- protein decr eased from 800's down to 325 from 12/18 to 12/23, 01/01/22 -?-?-?-?-?-?-?-?-?-?-?-?- 33w 4d 120/78 -?-?-?-?-?-?-?-?-?-?-?-?- 140 -?-?-?-?-?-?-?-?-?-?-?-?- SM- repeat urine protein today, nl bps 01/08/22 -?-?-?-?-?-?-?-?-?-?-?-?- 34w 4d 203 lb 121/79 Negative -?-?-?-?-?-?-?-?-?-?-?-?- Negative 135 -?-?-?-?-?-?-?-?-?-?-?-?- SM- no vb lof go od fm n oregular ctx bps WNL still has proteinuria 01/14/22 -?-?-?-?-?-?-?-?-?-?-?-?- 35w 3d 208 lb 8 oz 123/73 Nega tive -?-?-?-?-?-?-?-?-?-?-?-?- Negative 145 -?-?-?-?-?-?-?-?-?-?-?-?- CBC, CMP done to day. NST today reactive. has growth scheduled for 36 weeks. LC- no lof,vb or ctx. good f m.CBC, CMP done today. Home BP normal. NST today reactive. has growth scheduled for 36 weeks. 01/19/22 -?-?-?-?-?-?-?-?-?-?-?-?- 36w 1d 210 lb 127/85 -?-?-?-?-?-?-?-?-?-?-?-?- 135 37 Cephalic 0 -?-?-?-?-?-?-?-?-?-?-?-?- SM- no vb lof go od fm no regular ctx SM- no vb lof good fm no reg ular ctx growth us and BPP today ROS Constitutional Constitutional: Reports systems reviewed and no addt'l complaints, except as documented Gastrointestinal Gastrointestinal: Reports diarrhea and nausea; Denies bloating, constipation, cramping or vomiting Genitourinary Genitourinary: Reports other Details: Denies vaginal odor, vaginal bleeding, or vaginal discharge ; Denies difficulty urinating or flank pain Musculoskeletal Musculoskeletal: Reports systems reviewed and no addt'l complaints, except as documented Physical Exam HEENT normocephalic Face and Sinus: normal facial exam Eyes General Eye: normal appearance of both eyes Neck full ROM and No nuchal rigidity Lymph Lymphatic: no lymphadenopathy noted Resp normal respiratory effort and normal air movement Resp Narrative: o2 saturation 100% Cardio regular rhythm no CVA tenderness Extremity normal to inspection General Extremity: edema bilateral (trace ) NST FHR Rate Baby A Baseline: started out tachycardic, then resolved to baseline 150's Variability:: Moderate Accelerations:: 15 x 15 Decelerations:: None NST Reactive:: Yes FHR Category:: Category I Uterine Activity:: irregular contractions present. Assessment & Plan (1) Gastroenteritis: COMMENT: patient admitted for observation for several hours 12/22/21 for GI symptoms and fever. Initally there was evidence of maternal and tachycardia and patient had complaints of headache, body aches, fevers and chills. DC:Cr ratio was 328, lower than prior Pr:Cr ratio and pressures were borderline (130's/70's-80's) She was given IV fluids and tylenol and reported that she felt much better. She was sent home to follow up in 2 days in the office for BP check. COVID was negative. tachycardia resolved, maternal heart rate also came down with IV fluids. PLAN: pt will come back wednesday for re-assessment. will likely repeat a urine pr:cr again as we have been following her for proteinuria without evidence of pre-e until today. However, suspect that the headache is from vomiting and current illness and blood pressure when vomiting stopped was normal. consider early next week delivery if blood pressures are elevated in office wednesday. (2) Proteinuria affecting : COMMENT: weekly nsts, weekly cbc cmp urine protein, growth US q 4 weeks. preeclampsia precautions and home bp monitoring. discussed delivery if develops preeclampsia. (3) COVID-19: COMMENT: 11/25 +result, ASA daily and 32 (normal growth),36 wk US (4) History of tetanus, diphtheria, and acellular pertussis booster vaccination (Tdap): COMMENT: 11/25/21 (5) Obesity affecting : COMMENT: 1 tm gct. (6) Supervision of normal first : COMMENT: PRR CAMMY:02/15/22 Spouse:Mikey (7) : QUALIFIERS: Weeks of gestation: 35 weeks Qualified Code(s): Z3A.35 - 35 weeks gestation of COMMENT: genetics LR gender reveal (8) Hypothyroid: COMMENT: check labs each trimester (labs ordered for 01/19 TSH Free t4 WNL (9) Asthma: COMMENT: daily inhaler, singulair, well controlled. Charges/Coding Multi Select Codes Visit Charges Office Visit/Consults: 43936 OV L3 Est Urinary/Genital Urinary/Genital CPT Codes: 27451-22 non-stress test Interp
== END 2022-01-21 20:40 | disposition home or self-care (01) ==
LOC: WPOUT 16:01 → WP 16:01
PROVIDERS: PCP Nurse Practitioner Family; Visit Provider Obstetrics & Gynecology
DX: O99.613 Diseases of the digestive system complicating pregnancy, third trimester (principal); O36.8330 Maternal care for abnormalities of the fetal heart rate or rhythm, third trimester, not applicable or unspecified; Z20.822 Contact with and (suspected) exposure to COVID-19; R80.9 Proteinuria, unspecified; K21.9 Gastro-esophageal reflux disease without esophagitis; O99.891 Other specified diseases and conditions complicating pregnancy; K52.9 Noninfective gastroenteritis and colitis, unspecified; O09.10 Supervision of pregnancy with history of ectopic pregnancy, unspecified trimester; Z3A.36 36 weeks gestation of pregnancy; Z79.2 Long term (current) use of antibiotics
CPT/HCPCS: 96365; 96366; 96375; 96361 ×2; 36415; 59025; 59050; 82565; 82570; 84156; 84450; 84460; 84550; 85027; 87426; 99218; J7120; G0378; J2405

== ENCOUNTER → 2022-01-23 | Outpatient (CLI) | payer BC, SELFPAY ==
[2022-01-23 14:01] LABS: Protein, Urine (Random) 68.9 mg/dL (<11.9); Protein:Creat Ratio 315 mg/g CRE (0-200)
== END | disposition home or self-care (01) ==
PROVIDERS: PCP Nurse Practitioner Family; Visit Provider Obstetrics & Gynecology
DX: O12.10 Gestational proteinuria, unspecified trimester (principal); O99.891 Other specified diseases and conditions complicating pregnancy; R30.0 Dysuria; Z3A.00 Weeks of gestation of pregnancy not specified
CPT/HCPCS: 82570; 84156; 87086; 87088

== ENCOUNTER → 2022-01-26 | Outpatient (CLI) | payer BC, SELFPAY ==
[2022-01-26 17:02] LABS: Absolute Lymphocyte Count 2.66 X10^3/uL (0.83-4.51); Absolute Neutrophil Count 4.6 X10^3/uL (2.0-7.7); Basophil# 0.02 X10^3/uL; Basophil% 0.2 % (0-1); Eosinophil# 0.23 X10^3/uL; Eosinophils% 2.8 % (0-5); Hematocrit 34.3 % (37-47); Hemoglobin 11.2 g/dL (12.0-15.0); Lymphocyte # 2.66 X10^3/ul (0.83-4.51); Lymphocyte % 32.9 % (19-41); Mean Corp Hgb Conc 32.7 g/dL (32-36); Mean Corpuscular Hgb 28.4 pg (27.0-32.0); Mean Corpuscular Volume 86.8 fL (81-99); Mean Platelet Vol. 10.6 fl (6.2-12.0); Monocyte# 0.55 X10^3/uL; Monocyte% 6.8 % (0-10); NRBC Flagged by Analyzer 0 % (0-5); Neutrophil % 57.1 % (47-70); Platelet Count 315 K/mm3 (150-450); RBC Distribution Width CV 13.1 % (11.6-14.6); RBC Distribution Width SD 40.9 fl (35.1-43.9); Red Blood Count 3.95 M/mm3 (4.2-5.4); White Blood Count 8.1 K/mm3 (4.4-11.0)
[2022-01-26 19:26] LABS: ALB/GLOB Ratio 0.6 RATIO (0.9-2.4); AST(SGOT) 29 U/L (15-37); Alanine Aminotransfer ALT/SGPT 34 U/L (13-56); Albumin, Serum 2.4 g/dL (3.2-5.0); Alkaline Phosphatase 209 U/L (45-117); Anion Gap 10 (5-15); BUN 5 mg/dL (7-18); BUN/Creat Ratio 5.8 RATIO (10-20); Calcium,Total 8.9 mg/dL (8.5-10.1); Chloride 113 mmol/L (98-107); Creatinine, Serum 0.86 mg/dL (0.55-1.02); EST Glomerular Filtration Rate 84 mL/min (>60); Est Glom Filt Rate - Afr Amer 102 mL/min (>60); Globulin 3.8 g/dL (2.2-4.2); Glucose 95 mg/dL (74-106); Potassium 3.8 mmol/L (3.5-5.1); Protein, Total 6.2 g/dL (6.4-8.2); Sodium Level 144 mmol/L (136-145)
== END | disposition home or self-care (01) ==
LOC: LAB 16:54
PROVIDERS: PCP Nurse Practitioner Family; Visit Provider Obstetrics & Gynecology
DX: O12.10 Gestational proteinuria, unspecified trimester (principal); Z3A.00 Weeks of gestation of pregnancy not specified
CPT/HCPCS: 36415; 80053; 85025

== ENCOUNTER 2022-01-29 17:25 | Inpatient (IN) | payer BC, SELFPAY ==
[2022-01-29] VITALS (17 sets, daily range): BP systolic 127–147; BP diastolic 66–105; PULSE 66–88; TEMP 36–37.3; O2SAT 96–98; BMI 38.0
[2022-01-29 15:33] LABS: Hemoglobin 10.8 g/dL (12.0-15.0); Mean Corp Hgb Conc 33.8 g/dL (32-36); Mean Corpuscular Hgb 29.5 pg (27.0-32.0); Mean Corpuscular Volume 87.4 fL (81-99); Mean Platelet Vol. 11.4 fl (6.2-12.0); Platelet Count 335 K/mm3 (150-450); RBC Distribution Width SD 41.7 fl (35.1-43.9); Red Blood Count 3.66 M/mm3 (4.2-5.4); White Blood Count 9.1 K/mm3 (4.4-11.0)
[2022-01-29 15:46] LABS: AST(SGOT) 30 U/L (15-37); Alanine Aminotransfer ALT/SGPT 46 U/L (13-56); Creatinine, Serum 0.78 mg/dL (0.55-1.02); EST Glomerular Filtration Rate 95 mL/min (>60); Est Glom Filt Rate - Afr Amer 115 mL/min (>60); Estimated Creatinine Clearance 86.44 ml/min; Uric Acid 5.2 mg/dL (2.6-6.0)
[2022-01-29 15:48] LABS: Protein, Urine (Random) 19.2 mg/dL (<11.9); Protein:Creat Ratio 258 mg/g CRE (0-200)
--- NOTE | 2022-01-29 18:17 | HP.PCM.OB_ITS ---
HPI - General General Date of Admission: 01/29/22 HPI Narrative JESSIKA CRAIN, is a 26 F who presents with increased edema and elevated bps at home 140s over 90s. here they are elevated 140-150 over 90-100. no [facility]LL [facility] Maternal Data Information CAMMY Calculator Estimated Delivery Date Method Current WG Current Estimate 02/15/22 LMP (Certain) 37w 4d Other Estimates 02/13/22 Ultrasound #1 37w 6d PFSH PFSH Medical History Abdominal pain Allergies COVID-19 History of COVID-19 Hypothyroid Ileus Home Medications levocetirizine 5 mg tablet (Xyzal) 5 mg PO DAILY Check with primary doctor 02/17/19 [History Last Taken 01/29/22] montelukast 10 mg tablet (Singulair) 10 mg PO DAILY asthma 02/17/19 [History Last Taken 01/29/22] budesonide-formoterol HFA 160 mcg-4.5 mcg/actuation aerosol inhaler (Symbicort) 2 puff inhalation BID PRN difficulty breathing 12/26/20 [History Last Taken 12/26/20] prenat.vits,moe,nhv-volj-ppzvf 1 tab PO DAILY 06/30/21 [History Last Taken 01/28/22] famotidine 40 mg tablet (Pepcid) 40 mg PO BID #60 tabs 12/16/21 [Rx Last Taken 01/29/22] levothyroxine 88 mcg capsule 88 mcg PO DAILY #30 caps 12/23/21 [Rx Last Taken 01/29/22] aspirin 81 mg capsule 81 mg PO DAILY 01/29/22 [History Last Taken 01/29/22] Allergy/AdvReac Type Severity Reaction Status Date / Time Sulfa (Sulfonamide Allergy Mild Rash Verified 01/23/22 13:05 Antibiotics) Surgical History History of cholecystectomy S/P tonsillectomy Social History household members: spouse number of children: 0 current occupational status: employed current occupation: [employer] history of recent travel: No sexually active: Yes Smoking Status: Never smoker alcohol intake: current alcohol intake frequency: holidays/special occasions only details: not while substance use type: does not use what type of physical activity do you participate in: none seatbelt use: always do you feel safe at home: Yes additional social history: Spouse - Mikey Santiago History 1 Elective abortions Hx Para 0 Spontaneous abortions Hx # Term Pregnancies Ectopic pregnancies Hx # Pregnancies Multiple births # of living children Visit Details Expected Delivery Route/Plan Labor Preferences- CB/BF classes: yes labor support person: Mikey labor intervention preferences: pain management options preferred: epidural cut cord/dad catch: no : yes PP control planned: discussed discussed possible routes of delivery and associated risks: [] special requests: [] Plans Covid status: immune Flu vaccine: discussed Tdap vaccine: given Rhogam: na LARC form signed: yes Problem list reviewed and updated with the most current plan of care details and appropriate orders placed. Relevant counseling for the gestational age provided. Continue routine care and follow up unless otherwise noted in visit notes/problem list details OB Flowsheet Initial Weight: Not Recorded Date -?-?-?-?-?-?-?-?-?-?-?-?- EGA Weight BP Urine Prot -?-?-?-?-?-?-?-?-?-?-?-?- Glucose FHR FuHt Pres Dilation -?-?-?-?-?-?-?-?-?-?-?-?- Effaced St Visit Note 07/14/21 -?-?-?-?-?-?-?-?-?-?-?-?- 9w 1d 198 lb 6 oz 126/80 -?-?-?-?-?-?-?-?-?-?-?-?- 180 -?-?-?-?-?-?-?-?-?-?-?-?- SM- CRL 2.4cm co ns with LMP 08/12/21 -?-?-?-?-?-?-?-?-?-?-?-?- 13w 2d 197 lb 6 oz 123/81 Nega tive -?-?-?-?-?-?-?-?-?-?-?-?- Negative 147 -?-?-?-?-?-?-?-?-?-?-?-?- JV- no lof, vagi nal bleeding, or cramping. no complaints other than using the restroom often. She did her glucola and nipt today. 09/12/21 -?-?-?-?-?-?-?-?-?-?-?-?- 17w 5d 201 lb 132/88 Negative -?-?-?-?-?-?-?-?-?-?-?-?- Negative 140 -?-?-?-?-?-?-?-?-?-?-?-?- JV- no lof, vagi nal bleeding, or cramping. anatomy scan ordered 10/10/21 -?-?-?-?-?-?--?-?-?-?-?-?- 21w 5d 197 lb 2 oz 110/88 Nega tive -?-?-?-?-?-?-?-?-?-?-?-?- Negative 151 -?-?-?-?-?-?-?-?-?-?-?-?- JV- no lof, vagi nal bleeding, or cramping. indigestion is bad. starting pepcid 40 mg bid. she has a predisposition for GERD. 11/05/21 -?-?-?-?-?-?-?-?-?-?-?-?- 25w 3d 200 lb 114/78 -?--?-?-?-?-?-?-?-?-?-?-?- 137 -?-?-?-?-?-?-?-?-?-?-?-?- JV- no lof, v ag inal bleeding, or dec fm. glucola done today and pending. normal cbc. pnl reviewed. 11/25/21 -?-?-?-?-?-?-?-?-?-?-?-?- 28w 2d 199 lb 4 oz 126/78 Trac e -?-?-?-?-?-?-?-?-?-?-?-?- Negative 154 28 -?-?-?-?-?-?-?-?-?-?-?-?- MH-No VB, LOF. G ood FM. tdap, larc. 12/09/21 -?-?-?-?-?-?-?-?-?-?-?-?- 30w 2d 201 lb 6 oz 114/86 Nega tive -?-?-?-?-?-?-?-?-?-?-?-?- Negative 130 30 -?-?-?-?-?-?-?-?-?-?-?-?- SM- no vb lof go od fm no regular ctx 12/23/21 -?-?-?-?-?-?-?-?-?-?-?-?- 32w 2d 202 lb 2 oz 126/85 Nega tive -?--?-?-?-?-?-?-?-?-?-?-?- Negative 140 33 -?-?-?-?-?-?-?-?-?-?-?-?- SM- no vb lof go od fm no regular ctx SM- no vb lof good fm no reg ular ctx repeat BP at home nl to mildly elevated dependent on psotiion. 12/26/21 -?-?-?-?-?-?-?-?-?-?-?-?- 32w 5d 201 lb 6 oz 114/81 114/81 Negative -?-?-?-?-?-?-?-?-?-?-?-?- Negative 145 -?-?-?-?-?-?-?-?-?-?-?-?- JV- protein decr eased from 800's down to 325 from 12/18 to 12/23, 01/01/22 -?-?-?-?-?-?-?-?-?-?-?-?- 33w 4d 120/78 -?-?-?-?-?-?-?-?-?-?-?-?- 140 -?-?-?-?-?-?-?-?-?-?-?-?- SM- repeat urine protein today, nl bps 01/08/22 -?-?-?-?-?-?-?-?-?-?-?-?- 34w 4d 203 lb 121/79 Negative -?-?-?-?-?-?-?-?-?-?-?-?- Negative 135 -?-?-?-?-?-?-?-?-?-?-?-?- SM- no vb lof go od fm n oregular ctx bps WNL still has proteinuria 01/14/22 -?-?-?-?-?-?-?-?-?-?-?-?- 35w 3d 208 lb 8 oz 123/73 Nega tive -?-?-?-?-?-?-?-?-?-?-?-?- Negative 145 -?-?-?-?-?-?-?-?--?-?-?-?- CBC, CMP done to day. NST today reactive. has growth scheduled for 36 weeks. LC- no lof,vb or ctx. good f m.CBC, CMP done today. Home BP normal. NST today reactive. has growth scheduled for 36 weeks. 01/19/22 -?-?-?-?-?-?-?-?-?-?-?-?- 36w 1d 210 lb 127/85 -?-?-?-?-?-?-?-?-?-?-?-?- 135 37 Cephalic 0 -?-?-?-?-?--?-?-?-?-?-?-?- SM- no vb lof go od fm no regular ctx SM- no vb lof good fm no reg ular ctx growth us and BPP today 01/23/22 -?-?-?-?-?-?-?-?-?-?-?-?- 36w 5d 206 lb 6 oz 129/85 124/82 1+ -?-?-?-?-?-?-?-?-?-?-?-?- Negative 120 -?-?-?-?-?-?-?-?-?-?-?-?- JV- nst reactive and normal rate. pt as large ketones in urine . sending Pr:cr again. at this time was still trending down. will also send clean catch 01/26/22 -?-?-?-?-?-?-?-?-?-?-?-?- 37w 1d 208 lb 92/70 -?-?-?-?-?-?-?-?-?-?-?-?- 130 -?-?-?-?-?-?-?-?-?-?-?-?- SM- no vb lof fe eling much better. labs today. 01/29/22 -?-?-?-?-?-?-?-?-?-?-?-?- 37w 4d 208 lb 1.862 oz 139/ 98 132/84 127/84 136/88 138/89 133/89 137/93 140/96 143/98 146/105 141/97 -?-?-?-?-?-?-?-?-?-?-?-?- -?-?-?-?-?-?-?-?-?-?-?-?- NST FHR Rate Baby A Baseline: 130 Variability:: Moderate Accelerations:: 15 x 15 Decelerations:: None NST Reactive:: Yes FHR Category:: Category I Uterine Activity:: irregular ROS Constitutional Constitutional: Reports systems reviewed and no addt'l complaints, except as documented Eyes Eyes: Denies change in vision ENT HEENT: Reports systems reviewed and no addt'l complaints, except as documented; Denies headache(s) Cardiovascular Cardiovascular: Reports systems reviewed and no addt'l complaints, except as documented; Denies chest pain or dyspnea Respiratory/Chest Respiratory/Chest: Reports systems reviewed and no addt'l complaints, except as documented Gastrointestinal Gastrointestinal: Reports systems reviewed and no addt'l complaints, except as documented; Denies abdominal pain Genitourinary Genitourinary: Reports systems reviewed and no addt'l complaints, except as documented, contractions Details: present (irregular) and movement Details: present; Denies dysuria or genital lesions Musculoskeletal Musculoskeletal: Reports systems reviewed and no addt'l complaints, except as documented Neurologic Neurologic: Reports systems reviewed and no addt'l complaints, except as documented Endocrine Endocrinology: Reports systems reviewed and no addt'l complaints, except as documented Vital Signs Vital Signs Vital Signs: 01/29/22 14:13 01/29/22 14:13 01/29/22 14:13 Temperature Temperature Source Temporal Pulse Rate 88 Blood Pressure 139/98 H BP Systolic 139 BP Diastolic 98 Pulse Ox 01/29/22 14:14 01/29/22 14:14 01/29/22 14:13 Temperature 99.1 F Temperature Source Pulse Rate 88 Blood Pressure BP Systolic BP Diastolic Pulse Ox 97 01/29/22 14:32 01/29/22 14:32 01/29/22 14:46 Temperature Temperature Source Pulse Rate 80 Blood Pressure 132/84 H 127/84 H BP Systolic 132 127 BP Diastolic 84 84 Pulse Ox 01/29/22 14:46 01/29/22 15:31 01/29/22 15:31 Temperature Temperature Source Pulse Rate 77 71 Blood Pressure 136/88 H BP Systolic 136 BP Diastolic 88 Pulse Ox 01/29/22 15:46 01/29/22 15:46 01/29/22 16:01 Temperature Temperature Source Pulse Rate 75 Blood Pressure 138/89 H 133/89 H BP Systolic 138 133 BP Diastolic 89 89 Pulse Ox 01/29/22 16:01 01/29/22 16:16 01/29/22 16:16 Temperature Temperature Source Pulse Rate 73 73 Blood Pressure 137/93 H BP Systolic 137 BP Diastolic 93 Pulse Ox 01/29/22 16:31 01/29/22 16:31 01/29/22 16:46 Temperature Temperature Source Pulse Rate 77 Blood Pressure 140/96 H 143/98 H BP Systolic 140 143 BP Diastolic 96 98 Pulse Ox 01/29/22 16:46 01/29/22 17:01 01/29/22 17:01 Temperature Temperature Source Pulse Rate 77 84 Blood Pressure 146/105 H BP Systolic 146 BP Diastolic 105 Pulse Ox 01/29/22 17:16 01/29/22 17:16 Temperature Temperature Source Pulse Rate 81 Blood Pressure 141/97 H BP Systolic 141 BP Diastolic 97 Pulse Ox Weight Weight: 208 lb 1.862 oz Body Mass Index (BMI) 38.0 Physical Exam Const alert, oriented x3, no apparent distress and healthy appearing HEENT normocephalic and moist oral mucous membranes Head and Scalp: atraumatic Neck full ROM, no lymphadenopathy, supple and thyroid normal General: trachea midline Lymph Lymphatic: no lymphadenopathy noted Chest inspection of chest normal Resp normal respiratory effort Cardio regular rate GI normal to inspection, nondistended, normoactive bowel sounds, soft to palpation and non-tender Inspection: gravid external exam normal Manual OB Exam: estimated gestational size appropriate, presentation cephalic, dilated, effaced and station Extremity normal to inspection General Extremity: Negative for edema Skin no rashes or lesions noted Neuro no focal motor deficits and deep tendon reflexes 2+ bilaterally Motor Exam: strength 5/5 throughout and clonus absent Psych mental status grossly normal Labs Labs Labs: Blood Type A POSITIVE Antibody Screen NEGATIVE Hct 32.0 % (37-47) L Hgb 10.8 g/dL (12.0-15.0) L Obstetrics US Syphilis Total Ab Non-reactive Rubella IgG Antibody Reactive (Nonreactive) Hep Bs Antigen Non-Reactive (Nonreactive) Chlamydia DNA (JOSUE) Negative (Negative) Neisseria gonorrhoeae DNA (JOSUE) Negative (Negative) HIV 1&2 Antibody Non-Reactive (Nonreactive) Glucose 1 Hr 50 gm 132 mg/dL (70-140) Miscellaneous Test Assessment & Plan (1) Pre-eclampsia affecting puerperium: COMMENT: 37 weeks IOL cytotec (2) COVID-19: COMMENT: 11/25 +result, ASA daily and 32 (normal growth),36 wk US (3) History of tetanus, diphtheria, and acellular pertussis booster vaccination (Tdap): COMMENT: 11/25/21 (4) Obesity affecting : COMMENT: 1 tm gct. (5) Supervision of normal first : COMMENT: PRR CAMMY:02/15/22 Spouse:Mikey (6) : QUALIFIERS: Weeks of gestation: 37 weeks Qualified Code(s): Z3A.37 - 37 weeks gestation of COMMENT: genetics LR BOY, GBS negative (7) Hypothyroid: COMMENT: check labs each trimester (labs ordered for 01/19 TSH Free t4 WNL (8) Asthma: COMMENT: daily inhaler, singulair, well controlled. PLAN: Plan Patient presents IOL, plan management for with pitocin/AROM. Pain management: plans epidural. GBS negative. Management of any complications: none I have reviewed the [facility] and made any clinically relevant updates.
[2022-01-29] MEDS: miSOPROStol 25 MCG TABLET VAGINAL ×2 (20:10→23:55)
[2022-01-30] VITALS (43 sets, daily range): BP systolic 96–157; BP diastolic 51–94; PULSE 68–96; RESP 14; TEMP 36.6–37.2; O2SAT 95–98
[2022-01-30] MEDS: Acetaminophen 500 MG Tablet PO (03:13)
[2022-01-30] MEDS: Lactated Ringers 1,000 ML 50 ML IV (05:10)
[2022-01-30] MEDS: LACTATED RINGERS 500 ML 999 ML IV ×3 (05:12→08:45)
[2022-01-30] MEDS: 0.9% Normal Saline Single 100 ML IV.SOLN. INTRA-UTER (07:21)
--- NOTE | 2022-01-30 07:30 | PCM.PN.BLA ---
Progress Note fb place /0 current tracing: FHT: 130 Moderate variability reactive no decelerations category I tracing [place]: 2-3 Contractions reviewed tracing abnormalities since last note: no signirficant A/P: pit and fb IOL reviewed bps nl to mildly elevated
[2022-01-30] MEDS: 0.9% Saline Lock 10 ML Syringe IV ×2 (07:34→18:20)
[2022-01-30] MEDS: fentaNYL-bupivacaine (epidural) 100 ML BAG EPIDURAL ×2 (09:30→13:45)
--- NOTE | 2022-01-30 12:14 | PCM.PN.OB ---
Subjective Subjective comfortable with epidural. Objective Data Objective Data AROM for clear fluid. stable BP with epidural Vital Signs: Vital Signs Temp Pulse BP Pulse Ox 97.8 F 77 119/72 98 01/30/22 11:24 01/30/22 11:27 01/30/22 11:27 01/30/22 10:37 Weight: 208 lb 1.862 oz Body Mass Index (BMI) 38.0 Intake & Output: Intake and Output for Last 24 Hours 01/28/22 01/29/22 01/30/22 23:59 23:59 23:59 Intake Total 2106.17 / 2106.17 Output Total 600 / 600 Balance 1506.17 / 1506.17 Lab / Micro Data Result Diagrams: 01/29/22 15:15 01/29/22 15:15 Labs: Laboratory Results - last 24 hr 01/29/22 15:15: WBC 9.1, RBC 3.66 L, Hgb 10.8 L, Hct 32.0 L, MCV 87.4, MCH 29.5, MCHC 33.8, RDW Std Deviation 41.7, RDW Coeff of Maria R 13.0, Plt Count 335, MPV 11.4 01/29/22 15:15: U Random Total Protein 19.2 H, Urine Creatinine 74.30, Protein/Creatinin Ratio 258 H 01/29/22 15:15: Creatinine 0.78, Estim Creat Clear Calc 86.44, Est GFR (MDRD) Af Amer 115, Est GFR (MDRD) Non-Af 95, Uric Acid 5.2, AST 30, ALT 46 01/29/22 15:15: Blood Type A POSITIVE, Antibody Screen NEGATIVE Micro: Microbiology 01/29/22 18:40 Nasal Secretion SARS-CoV-2 Antigen (Rapid) - Final NST FHR Rate Baby A Baseline: 140 Variability:: Moderate Accelerations:: 15 x 15 Decelerations:: None NST Reactive:: Yes FHR Category:: Category I Assessment & Plan (1) Pre-eclampsia affecting puerperium: COMMENT: 37 weeks IOL cytotec (2) Supervision of normal first : COMMENT: PRR CAMMY:02/15/22 Spouse:Mikey (3) : QUALIFIERS: Weeks of gestation: 37 weeks Qualified Code(s): Z3A.37 - 37 weeks gestation of COMMENT: genetics LR BOY, GBS negative (4) COVID-19: COMMENT: 11/25 +result, ASA daily and 32 (normal growth),36 wk US PLAN: Plan AROM anticipate
[2022-01-30] MEDS: Lactated Ringers 1,000 ML 200 ML IV (12:15)
[2022-01-30] MEDS: Ondansetron 4 MG/2 ML Vial IV (13:45)
[2022-01-30] MEDS: Oxytocin 10 UNITS/ML Vial IM (15:02)
[2022-01-30] MEDS: Oxytocin 15 Units/NS 250ml 15 UNITS/250 ML IV.SOLN 83 UNITS IV (15:08)
--- NOTE | 2022-01-30 15:46 | OP.PCM_ITS ---
Assessment & Plan (1) Pre-eclampsia affecting puerperium: COMMENT: 37 weeks IOL cytotec (2) COVID-19: COMMENT: 11/25 +result, ASA daily and 32 (normal growth),36 wk US (3) History of tetanus, diphtheria, and acellular pertussis booster vaccination (Tdap): COMMENT: 11/25/21 (4) Obesity affecting : COMMENT: 1 tm gct. (5) Supervision of normal first : COMMENT: PRR CAMMY:02/15/22 Spouse:Mikey (6) : QUALIFIERS: Weeks of gestation: 37 weeks Qualified Code(s): Z3A.37 - 37 weeks gestation of COMMENT: genetics LR BOY, GBS negative (7) Hypothyroid: COMMENT: check labs each trimester (labs ordered for 01/19 TSH Free t4 WNL (8) Asthma: COMMENT: daily inhaler, singulair, well controlled. Maternal Data Information CAMMY Calculator Estimated Delivery Date Method Current WG Current Estimate 02/15/22 LMP (Certain) 37w 5d Other Estimates 02/13/22 Ultrasound #1 38w 0d Vaginal Delivery Maternal Presentation Maternal Presentation: Medically Indicated Induction Type of Induction: Cervidil, Pitocin and Amniotomy Operative Information Date of Procedure: 01/30/22 Pre-Operative Diagnosis: 37 weeks , Gestational hypertension Post-Operative Diagnosis: 37 weeks,, , Gestional hypertension Surgery / Procedure Performed: Spontaneous Vaginal Delivery Type of Anesthesia: Epidural Estimated Blood Loss: 300cc Findings Description of Procedure: Patient began pushing and delivered the head in the SOFIA presentation. The head was delivered atraumatically and a loose nuchal cord ?1 was identified and easily reduced over the 's head. The anterior and posterior shoulders delivered without complication followed by the rest of the infant and the infant was placed on the maternal abdomen. Delayed cord clamping was employed for approximately 60 seconds. Cord was clamped and cut and gentle traction was applied to the cord and the placenta delivered spontaneously immediately following it was noted to be intact with three-vessel cord. The perineum and vagina were inspected and noted to have no a 1st degree laceration repaired with a 3-0 vicryl rapide. EBL was 300cc. Patient and tolerated delivery well. Presentation: Vertex Amniotic Fluid Description: Clear Placental Delivery Description: Spontaneous Placenta Disposition: [facility] Cord Vessel Description: 3 Vessels Cord Entanglement: Around neck x 1, loose (1 minute): 8 (5 minute): 10 Delayed Cord Clamping: Yes Post Vaginal Delivery Medications Given After Delivery: IV Pitocin and - (IM pitocin) Episiotomy Description: None Laceration: 1st degree Complication Complications: None Procedures Urinary/Genital [id number]: [id number] Vaginal Delivery [facility]
--- NOTE | 2022-01-30 15:53 | PCM.DC ---
Discharge Instructions Diet Discharge Diet: No restrictions Activity Discharge Activity: Return to Normal Activity, May Not Drive (while taking narcotic pain medications.) and May Shower May resume sexual activity in: 4-6 weeks Dressing / Incision Call your doctor if your incision/area has: Continuous Slow Oozing, Sudden Increased Bleeding, Increased Pain/ Swelling, Increased Redness and Foul Smelling Discharge Follow Up Care Please Follow Up With: Paz Hernández DO When: Call [phone] to make an appointment with your doctor in 6 weeks. If you had elevated blood pressure or 4th degree laceration, you will need to be seen in 2 weeks. Test Results: Test results from this visit will be discussed in further detail at your follow-up appointment, if applicable. Discharge Plan Admission Admit Date/Time: 01/29/22 17:25 Attending Provider: Paz Hernández Primary Care Provider: Leroy Phillips NP Discharge Orders/Prescriptions Prescriptions: No Action montelukast [Singulair] 10 mg tablet 10 mg PO DAILY levocetirizine [Xyzal] 5 mg tablet 5 mg PO DAILY budesonide-formoterol [Symbicort] 160-4.5 mcg/actuation HFA aerosol inhaler 2 puff inhalation BID PRN (Reason: difficulty breathing) prenat.vits,moe,rgj-[id number] Tablet 1 tab PO DAILY levothyroxine 88 mcg capsule 88 mcg PO DAILY Qty: 30 5RF aspirin 81 mg Capsule 81 mg PO DAILY famotidine [Pepcid] 40 mg tablet 40 mg PO BID Qty: 60 6RF Referrals / Follow Up: Leroy Phillips DEVELOPMENTAL EDUCATION INSTRUCTOR, DEVELOPMENTAL EDUCATION INSTRUCTOR-C [Primary Care Provider] -
[2022-01-30] MEDS: Ibuprofen 600 MG Tablet PO (18:20)
[2022-01-31 00:15] VITALS: BP 129/81; PULSE 85; RESP 14; TEMP 36.6; O2SAT 95
[2022-01-31 04:00] VITALS: BP 145/99; PULSE 72; RESP 14; TEMP 36.4; O2SAT 95
[2022-01-31] MEDS: Acetaminophen 500 MG Tablet 1000 MG PO (04:43)
[2022-01-31] MEDS: Benzocaine/Lanolin/Aloe Vera 1 SPRAY EACH TOPICAL (08:50)
[2022-01-31] MEDS: Senna/Docusate Sodium 1 Tablet PO (08:50)
[2022-01-31] MEDS: Dibucaine 30 GM Tube 1 APPLIC TOPICAL (08:50)
[2022-01-31] MEDS: Ibuprofen 600 MG Tablet PO ×2 (08:51→16:51)
[2022-01-31 09:03] VITALS: BP 140/94; PULSE 71; RESP 16; TEMP 36.7; O2SAT 95
--- NOTE | 2022-01-31 10:45 | PCM.PN.OB ---
Subjective Subjective Patient doing well without complaints. Tolerating PO. Ambulating and voiding without difficulty. Feeding well. Denies chest pain, shortness of breath, calf pain/swelling, fevers, chills, lightheadedness. Objective Data Objective Data Vital Signs: Vital Signs Temp Pulse Resp BP Pulse Ox O2 Del Method 98.0 F 71 16 140/94 H 95 Room Air 01/31/22 09:03 01/31/22 09:03 01/31/22 09:03 01/31/22 09:03 01/31/22 09:03 01/31/22 09:03 Oxygen Delivery Method Room Air Weight: 208 lb 1.862 oz Body Mass Index (BMI) 38.0 Intake & Output: Intake and Output for Last 24 Hours 01/29/22 01/30/22 01/31/22 23:59 23:59 23:59 Intake Total 4019.50 / 4019.50 Output Total 1900 / 1900 Balance 2119.50 / 2119.50 Lab / Micro Data Attestation: I reviewed the patient's lab results. Result Diagrams: 01/29/22 15:15 01/29/22 15:15 Micro: Microbiology 01/29/22 18:40 Nasal Secretion SARS-CoV-2 Antigen (Rapid) - Final ROS Constitutional Constitutional: Denies body ache(s), chills, daytime sleepiness, difficulty sleeping, excessive sweating, fatigue, frequent falls, headache(s), increased appetite, lethargy, malaise, night sweats or poor appetite Genitourinary Genitourinary: Denies abdominal discomfort, urinary frequency, urinary hesitancy, urinary incontinence or urinary urgency Psychiatric Psychiatric: Reports none Endocrine Endocrinology: Reports none Hematologic/Lymphatic Hematologic/Lymphatic: Reports none Allergic/Immunologic Allergic/Immunologic: Reports none Physical Exam Narrative Patient is alert and oriented, easy work of breathing. Abdomen soft. Fundus 1 below U firm. Lochia rubra normal amount. Changing pads with voiding. No clots. Lower extremities without redness or tenderness. Bilateral +1 edema. Assessment & Plan (1) Status post vaginal delivery: COMMENT: 37 weeks for pih. -DOTTIE Ruvalcaba (2) Pre-eclampsia affecting puerperium: COMMENT: 37 weeks IOL cytotec PLAN: -start on Procardia 30mg XL -monitor BP, if stable on Procardia may d/c home this evening (3) Obesity affecting : COMMENT: 1 tm gct. PLAN: Plan s/p PPD # 1 1. routine post delivery care 2. breast feeding- support given 3. rh positive 4. rubella immune consulted re:hypertension with Dr. Hernández, who recommended starting procardia 30mg XL now, if BP controlled will d/c this evening.
[2022-01-31] MEDS: NIFEdipine 30 MG Tablet PO (11:48)
[2022-01-31 13:32] VITALS: BP 140/84; PULSE 69; RESP 16; TEMP 36.8; O2SAT 96
[2022-01-31 15:07] VITALS: BP 141/89
[2022-01-31 16:37] VITALS: BP 134/93; PULSE 78; RESP 16; TEMP 36.9; O2SAT 98
== END 2022-01-31 18:10 | disposition home or self-care (01) | DRG 807 ==
LOC: WPOUT 17:27 → WP 17:27
PROVIDERS: Obstetrics & Gynecology; Admitting Provider Obstetrics & Gynecology; PCP Nurse Practitioner Family; Visit Provider Obstetrics & Gynecology
DX: O14.94 Unspecified pre-eclampsia, complicating childbirth (principal); Z37.0 Single live birth; E03.9 Hypothyroidism, unspecified; J45.909 Unspecified asthma, uncomplicated; O70.0 First degree perineal laceration during delivery; O99.52 Diseases of the respiratory system complicating childbirth; O99.284 Endocrine, nutritional and metabolic diseases complicating childbirth; Z79.82 Long term (current) use of aspirin; O69.81X0 Labor and delivery complicated by cord around neck, without compression, not applicable or unspecified; Z3A.37 37 weeks gestation of pregnancy; Z20.822 Contact with and (suspected) exposure to COVID-19; O99.214 Obesity complicating childbirth; Z79.51 Long term (current) use of inhaled steroids; Z79.890 Hormone replacement therapy; Z79.899 Other long term (current) drug therapy
CPT/HCPCS: 59025; 59050; 82565; 82570; 84156; 84450; 84460; 84550; 85027; 86850; 86900; 86901; 87811; 99218; J7120; A4216; G0378; J2405

== ENCOUNTER → 2022-03-13 | Outpatient (CLI) | payer BC, SELFPAY ==
[2022-03-13 16:36] LABS: T4 Free Direct 1.23 ng/dL (0.76-1.46); Thyroid Stim Hormone (TSH) 0.24 uIU/mL (0.358-3.74)
== END | disposition home or self-care (01) ==
LOC: LAB 14:59
PROVIDERS: PCP Nurse Practitioner Family; Visit Provider Obstetrics & Gynecology
DX: E03.9 Hypothyroidism, unspecified (principal)
CPT/HCPCS: 36415; 84439; 84443

== ENCOUNTER → 2022-07-18 | Outpatient (CLI) | payer BC, SELFPAY ==
[2022-07-18 10:53] LABS: T4 Free Direct 0.87 ng/dL (0.76-1.46); Thyroid Stim Hormone (TSH) 4.36 uIU/mL (0.358-3.74)
== END | disposition home or self-care (01) ==
LOC: LAB 09:14
PROVIDERS: PCP Nurse Practitioner Family; Referring Provider Nurse Practitioner Family; Visit Provider Nurse Practitioner Family
DX: E03.9 Hypothyroidism, unspecified (principal)
CPT/HCPCS: 36415; 84439; 84443

== ENCOUNTER → 2023-01-16 | Outpatient (CLI) | payer BC, SELFPAY ==
[2023-01-16 13:12] LABS: ALB/GLOB Ratio 1.1 RATIO (0.9-2.4); AST(SGOT) 8 U/L (15-37); Alanine Aminotransfer ALT/SGPT 20 U/L (13-56); Albumin, Serum 3.8 g/dL (3.2-5.0); Alkaline Phosphatase 118 U/L (45-117); Anion Gap 3 (5-15); BUN 8 mg/dL (7-18); BUN/Creat Ratio 11.7 RATIO (10-20); Calcium,Total 8.7 mg/dL (8.5-10.1); Chloride 112 mmol/L (98-107); Cholesterol 146 mg/dL (200); Creatinine, Serum 0.68 mg/dL (0.55-1.02); EST Glomerular Filtration Rate 110 mL/min (>60); Est Glom Filt Rate - Afr Amer 133 mL/min (>60); Globulin 3.6 g/dL (2.2-4.2); Glucose 93 mg/dL (74-106); High Density Lipoprotein 52 mg/dL; Potassium 4.4 mmol/L (3.5-5.1); Protein, Total 7.4 g/dL (6.4-8.2); Sodium Level 141 mmol/L (136-145); T4 Free Direct 1.11 ng/dL (0.76-1.46); Thyroid Stim Hormone (TSH) 2.52 uIU/mL (0.358-3.74); Triglycerides 66 mg/dL; Very Low Density Lipoprotein 13 mg/dL (5-40)
[2023-01-16 14:06] LABS: Hemoglobin A1c 5.1 % (3.8-5.6)
== END | disposition home or self-care (01) ==
LOC: LAB 11:53
PROVIDERS: PCP Nurse Practitioner Family; Referring Provider Nurse Practitioner Family; Visit Provider Nurse Practitioner Family
DX: Z13.1 Encounter for screening for diabetes mellitus (principal); Z13.220 Encounter for screening for lipoid disorders; E03.9 Hypothyroidism, unspecified; E04.9 Nontoxic goiter, unspecified
CPT/HCPCS: 36415; 80053; 80061; 83036; 84439; 84443

== ENCOUNTER 2023-05-22 11:58 | Emergency (ER) | payer BC, SELFPAY ==
[2023-05-22 11:59] VITALS: BP 138/91; PULSE 92; RESP 18; TEMP 37.2; O2SAT 100; BMI 36.5
--- OUTSIDE RECORDS SUMMARY | 2023-05-22 12:22 | XMS RPT_ITS | CCD ---
Author Name Unknown Address [address] [place] [address] Organization [facility] Care Team Providers Care Red Lead Burner Name Role Phone RADHA, DR DEEP Bahena Attending Unavaila eleni GARCIA, DR DEEP Bahena Primary Care Unavaila eleni GARCIA, DR DEEP Bahena Admitting Unavaila Nancy Deal CNP Primary Care Provider NANCY LOPEZ Primary Care Unavailable FLORINDA AVERY Referring Unavail able NANCY LOPEZ Primary Care Unavailable FLORINDA AVERY Attending Unavail able NANCY LOPEZ Primary Care Unavailable VIRGIE BAH Referring Unavailable NANCY LOPEZ Primary Care Unavailable VIRGIE BAH Attending Unavailable NANCY LOPEZ Primary Care Unavailable NANCY LOPEZ Primary Care Unavailable Allergies Allergy Classification Reported Allergen(s) Allergy Type Date of Onset Reaction(s) Facility (2 sources) Grass pollen; Translations: [GRASS POLLEN] Drug Allergy 3 Other: See Comments [facility] (2 sources) Sulfonamides (Antibiotic); Translations: [SULFA (SULFONAMIDE ANTIBIOTICS)] Drug Allergy 3 Rash [facility] Medications Completed/Discontinued Medications Medication Drug Class(es) Dates Sig (Normalized) Sig (Original) Famotidine (1 source) Histamine-2 Receptor Antagonist FAMOTIDINE ORAL Take by mouth. 0 Active Problems Problem Classification Problem Date Documented Date Episodic/Chronic Fever of unknown origin (2 sources) Fever, unspecified; Translations: [Fever, unspecified] Onset: 12-23-2020 Episodic Other complications of (2 sources) Maternal obesity complicating , childbirth and the puerperium, antepartum; Translations: [Obesity complicating , unspecified trimester] Onset: 03-11-2023 03-11-2023 Chronic Other complications of (1 source) Obesity complicating , unspecified trimester; Translations: [Obesity affecting , antepartum, unspecified obesity type] Onset: 03-11-2023 Chronic Other complications of (2 sources) Finding of pattern of ; Translations: [Supervision of other high risk pregnancies, unspecified trimester] Onset: 03-11-2023 03-11-2023 Episodic Other complications of (2 sources) History of pre-eclampsia; Translations: [Supervision of with other poor reproductive or obstetric history, unspecified trimester] Onset: 03-11-2023 03-11-2023 Episodic Other complications of (2 sources) Nausea and vomiting; Translations: [Vomiting of , unspecified] Onset: 03-11-2023 03-11-2023 Episodic Other complications of (1 source) High risk ; Translations: [Supervision of high risk , unspecified, unspecified trimester] 03-11-2023 Episodic Other complications of (1 source) Supervision of high risk , unspecified, first trimester; Translations: [Supervision of high risk in first trimester] Onset: 04-20-2023 Episodic Other complications of (1 source) with inconclusive viability, not applicable or unspecified; Translations: [ with inconclusive viability, single or unspecified fetus] Onset: 03-24-2023 Episodic Other complications of (1 source) Supervision of with other poor reproductive or obstetric history, unspecified trimester; Translations: [H/O pre-eclampsia in prior , currently ] Onset: 03-11-2023 Episodic Other complications of (1 source) Supervision of other high risk pregnancies, unspecified trimester; Translations: [Short interval between pregnancies affecting , antepartum] Onset: 03-11-2023 Episodic Other complications of (1 source) Vomiting of , unspecified; Translations: [Nausea and vomiting in ] Onset: 03-11-2023 Episodic Other lower respiratory disease (1 source) Cough; Translations: [Cough] Onset: 12-23-2020 Episodic Other nutritional; endocrine; and metabolic disorders (2 sources) H/O: hypothyroidism; Translations: [Personal history of other endocrine, nutritional and metabolic disease] Onset: 03-11-2023 03-11-2023 Episodic Other nutritional; endocrine; and metabolic disorders (1 source) Personal history of other endocrine, nutritional and metabolic disease; Translations: [History of hypothyroidism] Onset: 03-11-2023 Episodic Residual codes; unclassified (2 sources) FH: Congenital heart disease; Translations: [Family history of other congenital malformations, deformations and chromosomal abnormalities] Onset: 03-11-2023 03-11-2023 Episodic Residual codes; unclassified (1 source) 13 weeks gestation of ; Translations: [13 weeks gestation of ] Onset: 04-20-2023 Episodic Residual codes; unclassified (1 source) Personal history of other complications of , childbirth and the puerperium; Translations: [History of gestational hypertension] Onset: 03-24-2023 Episodic Thyroid disorders (1 source) Hypothyroidism, unspecified; Translations: [Hypothyroidism, unspecified type] Onset: 04-20-2023 Chronic Viral infection (1 source) COVID-19; Translations: [COVID-19] Onset: 12-23-2020 Results Test Name Value Interpretation Reference Range Facil ity Vital Signs Date Time Vital Sign Value Performing Clinician Faci lity 04-20-2023 18:43-0500 Body weight 93.4416 kg NANCY LOPEZ [facility] Encounters Encounter Date Encounter Type Care Provider Facility Start: 04-20-2023 End: 04-21-2023 ambulatory VIRGIE BAH Facility:[facility] Start: 04-20-2023 End: 04-20-2023 ambulatory NANCY LOPEZ Facility:[facility] Start: 03-24-2023 End: 03-25-2023 ambulatory NANCY LOPEZ Facility:[facility] Start: 03-11-2023 End: 03-11-2023 ambulatory NANCY LOPEZ Facility:[facility] Start: 03-11-2023 End: 03-11-2023 Nursing evaluation of patient and report Nurse Pnob [facility] Work Phone: OB/Gynecology Procedures Date Procedure Procedure Detail Performing Clinician Start: 03-24-2023 Antibody screen NANCY LOPEZ Plan of Treatment Date Care Activity Detail Author Start: 11-26-2031 Urine microalbumin profile DTa P,Tdap,Td Vaccine (9 - Td or Tdap) [facility] Start: 12-11-2022 Covid-19 Vaccine () Covid-19 Vaccine () [facility] Start: 12-11-2022 Influenza vaccination Influenza Vacc ine (#1) [facility] Start: 04-12-2022 Depression Assessment Depression Ass essment [facility] Start: 07-02-2016 Pap Testing Pap Testing [facility] Start: 07-02-2013 Hepatitis C Screening Hepatitis C Sc reening [facility] Start: 07-02-2013 HIV Screening HIV Screening [facility] Payers Date Payer Category Payer Unknown [employer] PPO [id number] 2021-Present [phone] [address] [place] [address] PPO [id number] 2021 Unknown [id number] 1995 Unknown [id number] Unknown [id number] Social History Date Type Detail Facility Start: 03-11-2023 Tobacco smoking stat [facility] Never smoked tobacco [facility] Start: 03-11-2023 Tobacco use and exposure Smoke less tobacco non-user [facility] Start: 03-11-2023 Alcohol intake Ex-drinker (finding) [facility] Start: 03-11-2023 History of Social function [facility] Start: 03-11-2023 Tobacco use panel [facility] Start: 03-11-2023 Education 17 [facility] Start: 03-11-2023 Alcohol [facility] Start: 02-02-2023 [facility] Start: 1995 Sex Assigned At Female [facility] Start: 12-08-2022 Gender identity Identifies as female gender (finding) [facility] Start: 12-08-2022 Sexual orientation Heterosexual (fin ding) [facility] Progress note 03-24-2023 Note Date & Type Note Facility 03-24-2023 Note HNO ID: [id number] Author: Florinda Avery MD Service: ? Author Type: Physician Type: Progress Notes Filed: 03/24/2023 4:35 PM Note Text: OB point of care ultrasound was performed. See imaging tab for details. INITIAL OB ASSESSMENT OB Provider: Deborah Knutson RN HPI: Katia is a 27 year old White Female here to establish Obstetrical Care. Patient's last menstrual period was 01/19/2023 (approximate). from OB Dating Form. Cycles regular was planned Complaints: thyroid management OB History T1 L1 SAB0 IAB0 Ectopic0 Multiple0 Live Births1 # 1 - Date: 01/30/22, Sex: Male, Weight: 6 lb 7 oz (2.92 kg), GA: 37w0d, Delivery: Vaginal, Spontaneous, Apgar1: None, Apgar5: None, Living: Living, Comments: IOL for gestational HTN,CAN lose x 1, 1st degree lac.,300cc # 2 - Date: None, Sex: None, Weight: None, GA: None, Delivery: None, Apgar1: None, Apgar5: None, Living: None, Comments: None Previous history: Prior : never History of 4th degree laceration: No History of shoulder dystocia: No History of Hypertensive disorders including pre-eclampsia, chronic hypertension or gestational hypertension: Yes History of gestational diabetes: No Patient's Risk Screening for delivery: Have you had a prior anguiano between 20w and 36w6d?: No MEDICAL/PSYCHOSOCIAL HISTORY: History of hemorrhage or bleeding concerns: No Thyroid Disease: Yes History of chronic hypertension: No History of pre-existing diabetes: No No results found for: ABORHD No weight on file for this encounter. History of abnormal pap: No Prior treatment for cervical dysplasia: none. 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 I don't have enough money to pay my bills: Never Within the past 12 months, have you worried that your food would run out before you had money to buy more: Never In the past 12 months, has lack of reliable transportation kept you from going to medical appointments or work, or from keeping things needed for daily living: Never In the past 12 months, have you had any concerns about having a place to live, or about the condition or quality of your housing: Never Are there any cultural or spiritual needs we should be aware of: No Depression/Anxiety Screening: denies symptoms of depression. OB Depression and Anxiety Screening- This Encounter (since 03/10/2023) None Genetic Screening: Partner present: No Patient verbalized knowledge of partner family health history: Yes Do you or your partner have any personal or family history of defects not previously discussed: Yes, brother of AYO from seizure age 2 Do you have history of a complicated by anomaly, genetic condition, or demise: No ACOG Recommended Screening Screening for early gestational diabetes testing: Criteria for early testing requires elevated BMI plus one other risk factor: No weight on file for this encounter. (risk factor if > than 25 or 23 in Americans) Additional risk factors: obesity She does meet ACOG criteria for early gestational DM screening. 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 montelukast (SINGULAIR) 10 mg tablet Take 1 tablet by mouth every afternoon. VIT 90-FLUI-[id number]-DHA ORAL Take by mouth. levocetirizine 5 mg tablet Take 5 mg by mouth daily at bedtime. FAMOTIDINE ORAL Take by mouth. No current facility-administered medications for this visit. Allergies As of Date: 03/11/2023 (more content not included)... [facility] Progress note 03-11-2023 Note Date & Type Note Facility 03-11-2023 Note HNO ID: [id number] Author: Deborah Knutson RN Service: ? Author Type: Registered Nurse Type: Progress Notes Filed: 03/11/2023 11:24 AM Note Text: INITIAL OB ASSESSMENT OB Provider: Deborah Knutson RN HPI: Katia is a 27 year old White Female here to establish Obstetrical Care. Patient's last menstrual period was 01/19/2023 (approximate). from OB Dating Form. Cycles regular was planned Complaints: thyroid management OB History T1 L1 SAB0 IAB0 Ectopic0 Multiple0 Live Births1 # 1 - Date: 01/30/22, Sex: Male, Weight: 6 lb 7 oz (2.92 kg), GA: 37w0d, Delivery: Vaginal, Spontaneous, Apgar1: None, Apgar5: None, Living: Living, Comments: IOL for gestational HTN,CAN lose x 1, 1st degree lac.,300cc # 2 - Date: None, Sex: None, Weight: None, GA: None, Delivery: None, Apgar1: None, Apgar5: None, Living: None, Comments: None Previous history: Prior : never History of 4th degree laceration: No History of shoulder dystocia: No History of Hypertensive disorders including pre-eclampsia, chronic hypertension or gestational hypertension: Yes History of gestational diabetes: No Patient's Risk Screening for delivery: Have you had a prior anguiano between 20w and 36w6d?: No MEDICAL/PSYCHOSOCIAL HISTORY: History of hemorrhage or bleeding concerns: No Thyroid Disease: Yes History of chronic hypertension: No History of pre-existing diabetes: No No results found for: ABORHD No weight on file for this encounter. History of abnormal pap: No Prior treatment for cervical dysplasia: none. 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 I don't have enough money to pay my bills: Never Within the past 12 months, have you worried that your food would run out before you had money to buy more: Never In the past 12 months, has lack of reliable transportation kept you from going to medical appointments or work, or from keeping things needed for daily living: Never In the past 12 months, have you had any concerns about having a place to live, or about the condition or quality of your housing: Never Are there any cultural or spiritual needs we should be aware of: No Depression/Anxiety Screening: denies symptoms of depression. OB Depression and Anxiety Screening- This Encounter (since 03/10/2023) None Genetic Screening: Partner present: No Patient verbalized knowledge of partner family health history: Yes Do you or your partner have any personal or family history of defects not previously discussed: Yes, brother of FOJenny from seizure age 2 Do you have history of a complicated by anomaly, genetic condition, or demise: No ACOG Recommended Screening Screening for early gestational diabetes testing: Criteria for early testing requires elevated BMI plus one other risk factor: No weight on file for this encounter. (risk factor if > than 25 or 23 in Americans) Additional risk factors: obesity She does meet ACOG criteria for early gestational DM screening. 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 montelukast (SINGULAIR) 10 mg tablet Take 1 tablet by mouth every afternoon. VIT 61-[id number]-DHA ORAL Take by mouth. levocetirizine 5 mg tablet Take 5 mg by mouth daily at bedtime. FAMOTIDINE ORAL Take by mouth. No current facility-administered medications for this visit. Allergies As of Date: 03/11/2023 Allergen Noted Reaction GRASS POLLEN 03/11/2023 Other: See Comments SULFA (SULFONAMIDE ANTIBIOTICS) 03/11/2023 Rash Fully Assessed (more content not included)... [facility]-11[facility]2023 Quick Notes - Deborah Knutson RN - 03/11/2023 8:44 AM EST Note Date & Type Note Facility 03-11-2023 Miscellaneous Notes Formattin g of this note might be different from the original. DISTANCE HEALTH VISIT This Team Access Model visit is a phone encounter. It required patient-provider interaction for the medical decision making as documented below. I have communicated my name and active licensure. The patient's identity and physical location were verified at the time of this visit. Patient had previous delivery January 30, 2022 with [facility]. This is a planned . Patient is obese. We will plan on early hemoglobin A1c. Patient has a history of preeclampsia with her previous . She was induced at 37 weeks.Patient is complaining of nausea and occasional vomiting in . Dietary considerations discussed . Vitamin B6 recommended. Advised patient to call/come in if she is unable to keep any food or fluids down in a 24-hour period. Patient has a history of hypothyroidism diagnosed 5 years ago and treated by her PCP. She states that her last thyroid levels were drawn in January and has them checked usually every 6 months. She is made aware to take thyroid medication and vitamins at different times. Patient's uncle born with ASD. Had surgery at age 2. Patient declines aneuploidy screening and genetic carrier screening testing.Deborah Knutson RN documented in this encounter [facility] History of Present illness Narrative 03-11-2023 Deborah Knutson RN - 03/11/2023 8:05 AM EST Note Date & Type Note Facility 03-11-2023 History of Presen t illness Narrative INITIAL OB ASSESSMENT OB Provider: Deborah Knutson RN HPI: Katia is a 27 year old White Female here to establish Obstetrical Care. Patient's last menstrual period was 01/19/2023 (approximate). from OB Dating Form. Cycles regular was planned Complaints: thyroid management OB History T1 L1 SAB0 IAB0 Ectopic0 Multiple0 Live Births1 # 1 - Date: 01/30/22, Sex: Male, Weight: 6 lb 7 oz (2.92 kg), GA: 37w0d, Delivery: Vaginal, Spontaneous, Apgar1: None, Apgar5: None, Living: Living, Comments: IOL for gestational HTN,CAN lose x 1, 1st degree lac.,300cc # 2 - Date: None, Sex: None, Weight: None, GA: None, Delivery: None, Apgar1: None, Apgar5: None, Living: None, Comments: None Previous history: Prior : never History of 4th degree laceration: No History of shoulder dystocia: No History of Hypertensive disorders including pre-eclampsia, chronic hypertension or gestational hypertension: Yes History of gestational diabetes: No Patient's Risk Screening for delivery: Have you had a prior anguiano between 20w and 36w6d?: No MEDICAL/PSYCHOSOCIAL HISTORY: History of hemorrhage or bleeding concerns: No Thyroid Disease: Yes History of chronic hypertension: No History of pre-existing diabetes: No No results found for: ABORHD No weight on file for this encounter. History of abnormal pap: No Prior treatment for cervical dysplasia: none. 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 I don't have enough money to pay my bills: Never Within the past 12 months, have you worried that your food would run out before you had money to buy more: Never In the past 12 months, has lack of reliable transportation kept you from going to medical appointments or work, or from keeping things needed for daily living: Never In the past 12 months, have you had any concerns about having a place to live, or about the condition or quality of your housing: Never Are there any cultural or spiritual needs we should be aware of: No Depression/Anxiety Screening: denies symptoms of depression. OB Depression and Anxiety Screening- This Encounter (since 03/10/2023) None Genetic Screening: Partner present: No Patient verbalized knowledge of partner family health history: Yes Do you or your partner have any personal or family history of defects not previously discussed: Yes, brother of AYO from seizure age 2 Do you have history of a complicated by anomaly, genetic condition, or demise: No ACOG Recommended Screening Screening for early gestational diabetes testing: Criteria for early testing requires elevated BMI plus one other risk factor: No weight on file for this encounter. (risk factor if > than 25 or 23 in Americans) Additional risk factors: obesity She does meet ACOG criteria for early gestational DM screening. 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 montelukast (SINGULAIR) 10 mg tablet Take 1 tablet by mouth every afternoon. VIT 71-[id number]-PIQXL-DHA ORAL Take by mouth. levocetirizine 5 mg tablet Take 5 mg by mouth daily at bedtime. FAMOTIDINE ORAL Take by mouth. No current facility-administered medications for this visit. Allergies As of Date: 03/11/2023 Allergen Noted Reaction GRASS POLLEN 03/11/2023 Other: See Comments SULFA (SULFONAMIDE ANTIBIOTICS) 03/11/2023 Rash Fully Assessed 03/11/2023 Does patient have penicillin allergy: No documented in this encounter [facility] Evaluation note Note Date & Type Note Facility documented in this encounter [facility] Summary Purpose Family History No Family History Records FoundNo Family History Records FoundNo Family History Records Found Advance Directives No Advanced Directives Records FoundNo Advanced Directives Records FoundNo Advanced Directives Records Found Additional Source Comments INFORMATION SOURCE (unrecogn ized section and content) DATE CREATED AUTHOR AUTHOR'S ORGANIZ ATION 12/30/2020 [facility] DATE CREATED AUTHOR AUTHOR'S ORGANIZ ATION 04/25/2023 [facility] Source Comments (unrecognize d section and content) In the event this informatio n is protected by the Federal Confidentiality of Alcohol and Drug Abuse Patient Records regulations: The Federal rules restrict any use of the information to criminally investigate or prosecute any alcohol or drug abuse patient.[facility] Reason for Visit (unrecogniz ed section and content) Care Teams (unrecognized sec tion and content) FOR RECORDS PERTAINING TO PATIENTS WHO ARE OR HAVE BEEN ENROLLED IN A CHEMICAL DEPENDENCY/SUBSTANCEABUSE PROGRAM, SOME INFORMATION MAY BE OMITTED. This clinical summary was aggregated from multiple sources. Caution should be exercised in using it in the provision of clinical care. This summary normalizes information from multiple sources, and as a consequence, information in this document may materially change the coding, format and clinical context of patient data. In addition, data may be omitted in some cases. CLINICAL DECISIONS SHOULD BE BASED ON THE PRIMARY CLINICAL RECORDS. [facility] [employer] [facility]. provides no warranty or guarantee of the accuracy or completeness of information in this document.
--- NOTE | 2023-05-22 12:58 | EDS_ITS ---
HPI <VERONIQUE Gan - Last Filed: 05/22/23 13:52> History of Present Illness Chief Complaint: Complaint Narrative Narrative: Patient is a 27-year-old female with history of allergies, GERD, hypothyroidism who is currently a 2 para 1. Patient is currently 18 weeks . Last evening, she developed some pressure to her lower abdomen, almost like she had to use the restroom. She states the pain was mild to moderate intensity. Today she felt better, she went to the urgent care had blood in her urine and was told to come to the emergency department. At this time, patient is asymptomatic, she is just here for evaluation, denies any vaginal bleeding, back pain, fever or chills. Patient does see [facility]ILD CARE COOK at the [facility] <VERONIQUE Gan - Last Filed: 05/22/23 13:52> [facility] Medical History Abdominal pain Allergies COVID-19 History of COVID-19 Hypothyroid Ileus Home Medications levocetirizine 5 mg tablet (Xyzal) 5 mg PO DAILY Check with primary doctor 02/17/19 [History Last Taken 01/29/22] montelukast 10 mg tablet (Singulair) 10 mg PO DAILY asthma 02/17/19 [History Last Taken 01/29/22] budesonide-formoterol HFA 160 mcg-4.5 mcg/actuation aerosol inhaler (Symbicort) 2 puff inhalation BID PRN difficulty breathing 12/26/20 [History Last Taken 12/26/20] prenat.vits,moe,foh-hplt-lvgvj 1 tab PO DAILY 06/30/21 [History Last Taken 01/28/22] famotidine 40 mg tablet (Pepcid) 40 mg PO BID #60 tabs 12/16/21 [Rx Last Taken 01/29/22] levothyroxine 88 mcg capsule 88 mcg PO DAILY #30 caps 12/23/21 [Rx Last Taken 01/29/22] aspirin 81 mg capsule 81 mg PO DAILY 01/29/22 [History Last Taken 01/29/22] norethindrone (contraceptive) 0.35 mg tablet (Ortho Micronor) 0.35 mg PO DAILY 90 days #90 tabs 03/13/22 [Rx Last Taken Unknown] nifedipine 30 mg tablet,extended release 24 hr See Rx Instructions .Route .COMPLEX #30 tabs 03/27/22 [Rx Last Taken Unknown] Allergy/AdvReac Type Severity Reaction Status Date / Time Sulfa (Sulfonamide Allergy Mild Rash Verified 05/22/23 11:59 Antibiotics) Surgical History History of cholecystectomy S/P tonsillectomy Social History household members: spouse number of children: 0 current occupational status: employed 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 HEENT: No sore throat. No neck pain. No loss of vision. No rhinorrhea. Cardiovascular: No chest pain. No palpitations. No pedal edema. Respiratory: No cough, no shortness of breath. Abdominal:. No nausea. No vomiting. Positive for lower abdominal pain, abdominal pressure Genitourinary: No dysuria. Positive for microscopic hematuria Musculoskeletal: No myalgias. No arthralgias. Neurologic: No headaches. No dizziness. No lightheadedness. Skin: No rash. No change in color. Psychiatric: No depression. No anxiety. EXAM <VERONIQUE Gan - Last Filed: 05/22/23 13:52> Physical Exam Narrative Exam Narrative: Afebrile. Vital signs noted. HEENT: Normocephalic. Atraumatic. PERRL, EOMI. Neck soft and supple. No point tenderness or step off. Cardiovascular: Regular rate and rhythm. No murmurs, rubs, or gallops appreciated. Respiratory: No tachypnea. Lungs clear to auscultation bilaterally. Gastrointestinal: Abdomen soft, nontender, with normoactive bowel sounds. No rebound or guarding. Neurological: Awake. Alert. Nonfocal, nonlateralizing. Skin: No rash. Normal color. No pallor. Musculoskeletal: No pedal edema. Full range of motion extremities. Const Vital Signs: 05/22/23 11:59 05/22/23 13:58 Temperature 99 F Temperature Source Temporal Pulse Rate 92 73 Respiratory Rate 18 16 Blood Pressure 138/91 H Blood Pressure Mean 106 Pulse Ox 100 98 Oxygen Delivery Method Room Air <Dr. Fidel Treviño MD - Last Filed: 05/22/23 20:02> Physical Exam Const Vital Signs: 05/22/23 11:59 05/22/23 13:58 Temperature 99 F Temperature Source Temporal Pulse Rate 92 73 Respiratory Rate 18 16 Blood Pressure 138/91 H Blood Pressure Mean 106 Pulse Ox 100 98 Oxygen Delivery Method Room Air [facility] <VERONIQUE Gan - Last Filed: 05/22/23 13:52> [facility] Lab Data Labs: Laboratory Results - last 24 hr 05/22/23 13:05 Urine Color Yellow Urine Clarity Clear Urine pH 7.0 Ur Specific [place] 1.005 Urine Protein Negative Urine Glucose (UA) Normal Urine Ketones Negative Urine Occult Blood Negative Urine Nitrite Negative Urine Bilirubin Negative Urine Urobilinogen Normal Ur Leukocyte Esterase Negative Urine RBC 0 SEEN Urine WBC 0 SEEN Ur Squamous Epith Cells 0-5 SEEN Urine Bacteria RARE Urine Mucus 0 SEEN Treatment and Re-Evaluation :: Patient appears generally well, patient appears nontoxic, vital signs are stable. Patient presents to the emergency department with complaints of lower abdominal pressure, concern for UTI for the last 24 hours. Patient on my examination is currently asymptomatic. Differential diagnoses include spontaneous , UTI, dysuria, ectopic . Secondary to the patient's vital signs, lack of symptoms at this time, I have low suspicion for any ectopic , spontaneous . Patient will receive a urinalysis as well as heart tones. Patient's urinalysis showed no abnormality, no bacteria, no leukocytes, no blood. Patient is asymptomatic at this time. At this time, do not believe there is any evidence of ectopic , spontaneous . heart tones are 128. Patient will follow-up this week with her CHILD CARE COOK. Patient instructed return for any worsening symptoms. All questions answered, patient stable for discharge. <Dr. Fidel Treviño MD - Last Filed: 05/22/23 20:02> [facility] MDM Narrative Medical decision making narrative: I have personally performed a face to face assessment of the patient and have reviewed the JILLIAN Note. I performed a substantive portion of the visit including all aspects of the following. My woo findings include: History: Patient had a lot of suprapubic pressure last night. She states she has a history of getting this sometimes. But thought she might have a UTI. But she did not have dysuria. She states the symptoms are better today but she figured she did come in anyway as she thought she might need antibiotics. She is currently 18 weeks . No vaginal bleeding. No back or flank pain. She feels well now. She was at urgent care who stated she did not have a UTI but there was trace blood in her urine so they sent her here. Exam: Patient looks to be in no acute distress. Abdomen is totally benign. No CVA tenderness. No suprapubic tenderness. Patient's urinalysis is clean. heart tones are 128. Medical Decision Making: Patient has no pain now. No bleeding. Normal heart tones and urine. I do not think she needs further workup or ultrasound. Lab Data Labs: Laboratory Results - last 24 hr 05/22/23 13:05 Urine Color Yellow Urine Clarity Clear Urine pH 7.0 Ur Specific [place] 1.005 Urine Protein Negative Urine Glucose (UA) Normal Urine Ketones Negative Urine Occult Blood Negative Urine Nitrite Negative Urine Bilirubin Negative Urine Urobilinogen Normal Ur Leukocyte Esterase Negative Urine RBC 0 SEEN Urine WBC 0 SEEN Ur Squamous Epith Cells 0-5 SEEN Urine Bacteria RARE Urine Mucus 0 SEEN Discharge Plan Triage Chief Complaint: Complaint ED Midlevel Provider: Harris Martinez ED Provider: Fidel Treviño Dx/Rx/DC Orders Clinical Impression: Dysuria, Instructions: Dysuria Prescriptions: No Action montelukast [Singulair] 10 mg tablet 10 mg PO DAILY levocetirizine [Xyzal] 5 mg tablet 5 mg PO DAILY budesonide-formoterol [Symbicort] 160-4.5 mcg/actuation HFA aerosol inhaler 2 puff inhalation BID PRN (Reason: difficulty breathing) prenat.vits,moe,fsf-umfo-ludgo Tablet 1 tab PO DAILY levothyroxine 88 mcg capsule 88 mcg PO DAILY Qty: 30 5RF norethindrone (contraceptive) [Ortho Micronor] 0.35 mg tablet 0.35 mg PO DAILY 90 Days Qty: 90 4RF aspirin 81 mg Capsule 81 mg PO DAILY famotidine [Pepcid] 40 mg tablet 40 mg PO BID Qty: 60 6RF nifedipine 30 mg tablet extended release 24hr See Rx Instructions .ROUTE .COMPLEX Qty: 30 1RF Dose Instruction: TAKE 1 TABLET BY MOUTH EVERY DAY Rx Instructions: TAKE 1 TABLET BY MOUTH EVERY DAY Primary Care Provider: Leroy Phillips NP Referrals: Leroy Phillips NP, [facility] [Primary Care Provider] - Activity Restrictions/Additional Instructions: Please follow-up with the [facility]ARE COOK. Return here for any worsening symptoms Disposition Disposition: Home, Self Care Discharge Date/Time: 05/22/23 13:59
[2023-05-22 13:10] LABS: Mucous, Urine 0 SEEN /hpf (<or=2+); Red Blood Cells-Urine 0 SEEN /hpf (0-5); White Blood Cells 0 SEEN /hpf (0-5)
[2023-05-22 13:15] LABS: Color, Urine Yellow (Yellow); Glucose, Dipstick Normal (Normal); Ketone-Dipstick Negative (Negative); Leukocyte Esterase-Dipstick Negative /ul (Negative); Nitrite-Dipstick Negative (Negative); Occult Blood-Urine Negative /ul (Negative); Protein-Dipstick Negative (Negative); Specific Gravity, Urine 1.005 (1.002-1.030); Urine Bilirubin Dipstick Negative (Negative); Urine Clarity Clear (Clear); Urine Urobilinogen Normal (Normal)
[2023-05-22 13:31] LABS: Bacteria RARE /hpf (None Seen); Squamous Epithelial Cells - UA 0-5 SEEN /hpf (5-10)
[2023-05-22 13:58] VITALS: PULSE 73; RESP 16; O2SAT 98
== END 2023-05-22 13:59 | disposition home or self-care (01) ==
PROVIDERS: Nurse Practitioner; Emergency Provider Emergency Medicine; PCP Nurse Practitioner Family; Visit Provider Emergency Medicine
DX: O99.891 Other specified diseases and conditions complicating pregnancy (principal); R30.0 Dysuria; Z3A.18 18 weeks gestation of pregnancy; Z86.16 Personal history of COVID-19
CPT/HCPCS: 81001; 99282

== ENCOUNTER 2023-10-12 20:55 | Outpatient (CLI) | payer BC, SELFPAY ==
[2023-10-12] VITALS (7 sets, daily range): BP systolic 133–144; BP diastolic 75–96; PULSE 68–75; RESP 16; TEMP 36.7; O2SAT 98; BMI 36.1
[2023-10-12 22:14] LABS: ROM Internal Control Test YES-OK TO RESULT pt. (Internal QC); ROM Patient Test Negative (Negative); Record Kit Lot#, ROM+ K1866
[2023-10-12 22:39] LABS: Hematocrit 32.2 % (37-47); Hemoglobin 10.6 g/dL (12.0-15.0); Mean Corp Hgb Conc 32.9 g/dL (32-36); Mean Corpuscular Hgb 29.4 pg (27.0-32.0); Mean Corpuscular Volume 89.4 fL (81-99); Mean Platelet Vol. 12.1 fl (6.2-12.0); Platelet Count 289 K/mm3 (150-450); RBC Distribution Width SD 45.8 fl (35.1-43.9); White Blood Count 10.6 K/mm3 (4.4-11.0)
[2023-10-12 23:05] LABS: AST(SGOT) 16 U/L (15-37); Alanine Aminotransfer ALT/SGPT 17 U/L (13-56); EST Glomerular Filtration Rate 106 mL/min (>60); Est Glom Filt Rate - Afr Amer 129 mL/min (>60); Estimated Creatinine Clearance 124.57 ml/min
[2023-10-12 23:06] LABS: Protein, Urine (Random) 9.6 mg/dL (<11.9); Protein:Creat Ratio 219 mg/g CRE (0-200)
--- NOTE | 2023-10-26 22:35 | OB.TRI.HP_ITS ---
HPI - General General Date of Service: 10/12/23 HPI Narrative JESSIKA CRAIN, is a 28 F who presents with LOF. Maternal Data Information CAMMY Calculator Estimated Delivery Date Method Current WG Current Estimate 10/26/23 Manual 40w 0d Gestational age: 38 weeks [facility] Medical History (Updated 10/26/23 @ 22:[address] Srikanth Pittman MD) Thyroid disorder COVID-19 History of COVID-19 Ileus Allergies Hypothyroid Abdominal pain Home Medications ?Medication ?Instructions ?Recorded ?Last Taken ?Type levocetirizine 5 mg tablet (Xyzal) 5 mg PO DAILY Check with primary 02/17/19 10/23/23 08:00 History doctor montelukast 10 mg tablet 10 mg PO DAILY asthma 02/17/19 10/23/23 08:00 History (Edilberto) prenat.vits,moe,eta-jipz-ydtfo 1 tab PO DAILY 06/30/21 10/23/23 20:00 History famotidine 40 mg tablet (Pepcid) 40 mg PO BID #60 tabs 12/16/21 10/23/23 08:00 Rx levothyroxine 88 mcg capsule 88 mcg PO DAILY #30 caps 12/23/21 10/23/23 08:00 Rx nifedipine 30 mg tablet,extended 30 mg PO DAILY #30 tabs 10/25/23 Unknown Rx release 24 hr Allergy/AdvReac Type Severity Reaction Status Date / Time Sulfa (Sulfonamide Allergy Mild Rash Verified 10/23/23 21:06 Antibiotics) Surgical History (Updated 10/24/23 @ 01:23 by Berna Roach) S/P tonsillectomy History of cholecystectomy Social History household members: spouse number of children: 0 current occupational status: employed 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 Date Name GA/Weeks Outcome Route Bth Weight Gen Labor Lgth Anesthesia Del Locatn Provider FOB 01/30/22 Jordon 37 live - full term Male kimi al [facility] Paz Hernández Mikey Delivery Date: 01/30/22 Last Updated by: Patricia Barnes see problem list for complications, and pre-e. Assessment & Plan (1) False labor: PLAN: NST
== END 2023-10-12 23:45 | disposition home or self-care (01) ==
LOC: WPOUT 21:00 → WP 21:00
PROVIDERS: PCP Nurse Practitioner Family; Referring Provider Obstetrics & Gynecology; Visit Provider Obstetrics & Gynecology
DX: O47.1 False labor at or after 37 completed weeks of gestation (principal); O99.283 Endocrine, nutritional and metabolic diseases complicating pregnancy, third trimester; E03.9 Hypothyroidism, unspecified; Z79.899 Other long term (current) drug therapy; Z86.16 Personal history of COVID-19; Z3A.38 38 weeks gestation of pregnancy
CPT/HCPCS: 36415; 59025; 59050; 82565; 82570; 84112; 84156; 84450; 84460; 84550; 85027; 99221; G0378

== ENCOUNTER 2023-10-23 22:50 | Inpatient (IN) | payer BC, SELFPAY ==
[2023-10-23] VITALS (9 sets, daily range): BP systolic 134–162; BP diastolic 80–88; PULSE 76–87; RESP 16–18; TEMP 36.6–36.8; O2SAT 100; BMI 35.4
[2023-10-23] MEDS: Oxytocin 10 UNITS/ML Vial IM (23:27)
[2023-10-23] MEDS: Acetaminophen 500 MG Tablet PO (23:59)
[2023-10-24] VITALS (25 sets, daily range): BP systolic 118–152; BP diastolic 75–98; PULSE 69–85; RESP 16–18; TEMP 36.7–37.4; O2SAT 97–100
--- NOTE | 2023-10-24 00:04 | HP.PCM.OB_ITS ---
HPI - General General Date of Admission: 10/23/23 HPI Narrative JESSIKA CRAIN, is a 28 F who presents at 39w5d in active labor. Regular contractions and cervical change made and admission for labor. Maternal Data Information CAMMY Calculator Estimated Delivery Date Method Current WG Current Estimate 10/26/23 Manual 39w 5d PFSH PFS Medical History (Updated 10/24/23 @ 00:08 by Berna Tyson CNM) COVID-19 History of COVID-19 Ileus Allergies Hypothyroid Abdominal pain Home Medications ?Medication ?Instructions ?Recorded ?Last Taken ?Type levocetirizine 5 mg tablet (Xyzal) 5 mg PO DAILY Check with primary 02/17/19 10/23/23 08:00 History doctor montelukast 10 mg tablet 10 mg PO DAILY asthma 02/17/19 10/23/23 08:00 History (Edilberto) prenat.vits,moe,ncx-ggvc-thbct 1 tab PO DAILY 06/30/21 10/23/23 20:00 History famotidine 40 mg tablet (Pepcid) 40 mg PO BID #60 tabs 12/16/21 10/23/23 08:00 Rx levothyroxine 88 mcg capsule 88 mcg PO DAILY #30 caps 12/23/21 10/23/23 08:00 Rx aspirin 81 mg capsule 81 mg PO DAILY 01/29/22 10/23/23 08:00 History Allergy/AdvReac Type Severity Reaction Status Date / Time Sulfa (Sulfonamide Allergy Mild Rash Verified 10/23/23 21:06 Antibiotics) Surgical History S/P tonsillectomy History of cholecystectomy Social History household members: spouse number of children: 0 current occupational status: employed 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 Date Name GA/Weeks Outcome Route Bth Weight Gen Labor Lgth Anesthesia Del Locatn Provider FOB 01/30/22 Jordon 37 live - full term Male epidur al [facility] Paz Grier Delivery Date: 01/30/22 Last Updated by: Patricia Barnes see problem list for complications, and pre-e. Vital Signs Vital Signs Vital Signs: 10/23/23 21:11 10/23/23 21:11 10/23/23 21:12 Temperature Temperature Source Temporal Pulse Rate 80 Respiratory Rate Blood Pressure 134/80 H BP Systolic 134 BP Diastolic 80 Pulse Ox 10/23/23 21:12 10/23/23 21:12 10/23/23 23:32 Temperature 97.8 F Temperature Source Pulse Rate Respiratory Rate 18 Blood Pressure 162/88 H BP Systolic 162 BP Diastolic 88 Pulse Ox 10/23/23 23:32 10/23/23 23:35 10/23/23 23:35 Temperature Temperature Source Pulse Rate 85 87 Respiratory Rate Blood Pressure BP Systolic BP Diastolic Pulse Ox 100 10/23/23 23:40 10/23/23 23:40 10/23/23 23:45 Temperature Temperature Source Pulse Rate 81 85 Respiratory Rate Blood Pressure BP Systolic BP Diastolic Pulse Ox 100 10/23/23 23:45 10/23/23 23:45 10/23/23 23:45 Temperature Temperature Source Temporal Pulse Rate Respiratory Rate 16 Blood Pressure BP Systolic BP Diastolic Pulse Ox 100 10/23/23 23:45 10/23/23 23:47 10/23/23 23:47 Temperature 98.3 F Temperature Source Pulse Rate 78 Respiratory Rate Blood Pressure 150/83 H BP Systolic 150 BP Diastolic 83 Pulse Ox 10/23/23 23:50 10/23/23 23:50 10/23/23 23:55 Temperature Temperature Source Pulse Rate 76 86 Respiratory Rate Blood Pressure BP Systolic BP Diastolic Pulse Ox 100 10/23/23 23:55 10/24/23 00:00 10/24/23 00:00 Temperature Temperature Source Pulse Rate 79 Respiratory Rate Blood Pressure BP Systolic BP Diastolic Pulse Ox 100 100 10/24/23 00:02 10/24/23 00:02 Temperature Temperature Source Pulse Rate 80 Respiratory Rate Blood Pressure 145/82 H BP Systolic 145 BP Diastolic 82 Pulse Ox Weight Weight: 193 lb 9.054 oz Body Mass Index (BMI) 35.4 Labs Labs Labs: Blood Type A POSITIVE Antibody Screen NEGATIVE Hct 32.2 % (37-47) L Hgb 10.6 g/dL (12.0-15.0) L Obstetrics Ultrasound Syphilis Total Ab Non-reactive Rubella IgG Antibody Reactive (Nonreactive) Hep Bs Antigen Non-Reactive (Nonreactive) Hepatitis C Antibody Non-Reactive (Nonreactive) Chlamydia DNA (JOSUE) Negative (Negative) N.gonorrhoeae DNA (JOSUE) Negative (Negative) HIV 1&2 Antibody Non-Reactive (Nonreactive) Glucose 1 Hr 50 gm 132 mg/dL (70-140) Miscellaneous Test Assessment & Plan (1) Active labor at term: (2) Short interval between pregnancies affecting , antepartum: (3) History of pre-eclampsia: (4) Hypothyroid: (5) History of gestational hypertension: (6) Obesity affecting : COMMENT: 1 tm gct. PLAN: Plan 1) Admit to labor and delivery 2) Routine labs 3)Continuous EFM 4)Pain management upon request 5) collaborative physician, notified of above assessment and plan.
--- NOTE | 2023-10-24 00:10 | EX.PCM.OBRPT ---
Assessment & Plan (1) Vaginal delivery: (2) First degree perineal laceration: (3) Lactating mother: Maternal Data Information CAMMY Calculator Estimated Delivery Date Method Current WG Current Estimate 10/26/23 Manual 39w 5d Vaginal Delivery Maternal Presentation Maternal Presentation: Active Labor and Spontaneous Rupture of Membranes Operative Information Date of Procedure: 10/24/23 Pre-Operative Diagnosis: Active labor at term Post-Operative Diagnosis: , precipitous , 1st degree perineal laceration Surgery / Procedure Performed: Spontaneous Vaginal Delivery Type of Anesthesia: None Estimated Blood Loss: 200 ml Time of Delivery: 23:08 Findings Description of Procedure: Rapid progression from 4cm to complete dilation. Urge to push. Unmedicated. of viable female infant over first degree perineal. Delivered by nursing staff due to precipitous delivery. APGARS 8,9 respectively. Infant head delivered with body immediately forthcoming. Placed on maternal abdomen, strong cry. Pitocin started for active 3rd stage management. Cord doubly clamped and cut by FOB after pulsations ceased, delayed cord clamping. Placenta delivered intact via coyne, 3 vessel cord intact. Perineum inspected and revealed 1st degree perineal laceration. Repaired with 3.0 vicryl rapide and lidocaine. Fundus firm and hemostasis achieved. EBL 200ml. Mom and baby stable, planning to breastfeed. Family bonding well. notified of delivery. Presentation: Vertex Amniotic Membrane Rupture Type: Spontaneous Amniotic Fluid Description: Clear Placental Delivery Description: Spontaneous Placenta Disposition: [facility] Cord Vessel Description: 3 Vessels Cord Entanglement: None A Gender: Female (1 minute): 8 (5 minute): 9 Delayed Cord Clamping: Yes Post Vaginal Delivery Medications Given After Delivery: IM Pitocin Episiotomy Description: None Laceration: Perineal Extension/lac and 1st degree Complication Complications: None
[2023-10-24 03:53] LABS: Absolute Lymphocyte Count 1.69 X10^3/uL (0.83-4.51); Absolute Neutrophil Count 14.2 X10^3/uL (2.0-7.7); Basophil# 0.06 X10^3/uL; Basophil% 0.4 % (0-1); Eosinophil# 0.02 X10^3/uL; Eosinophils% 0.1 % (0-5); Hematocrit 36.8 % (37-47); Hemoglobin 12.2 g/dL (12.0-15.0); Lymphocyte # 1.69 X10^3/ul (0.83-4.51); Lymphocyte % 9.9 % (19-41); Mean Corp Hgb Conc 33.2 g/dL (32-36); Mean Corpuscular Hgb 29.8 pg (27.0-32.0); Mean Platelet Vol. 12.1 fl (6.2-12.0); Monocyte# 0.91 X10^3/uL; Monocyte% 5.4 % (0-10); NRBC Flagged by Analyzer 0 % (0-5); Neutrophil # 14.23 X10^3/uL (2.7-7.7); Neutrophil % 83.7 % (47-70); Platelet Count 275 K/mm3 (150-450); RBC Distribution Width CV 13.5 % (11.6-14.6); RBC Distribution Width SD 43.9 fl (35.1-43.9); Red Blood Count 4.09 M/mm3 (4.2-5.4)
[2023-10-24 04:44] LABS: Syphilis Antibodies Non-reactive
[2023-10-24] MEDS: Levothyroxine 88 MCG Tablet PO (07:41)
--- NOTE | 2023-10-24 08:06 | PCM.PN.OB ---
Subjective Subjective Doing well per patient and nursing staff. Ambulating and taking PO without difficulty. Voiding and passing flatus. Pain controlled. , services for assistance. Denies headache, visual changes, chest pain, shortness of breath, leg pain or increased bleeding. Lochia normal. Objective Data Objective Data Vital Signs: Vital Signs Temp Pulse Resp BP Pulse Ox O2 Del Method 98.7 F 80 16 139/88 H 98 Room Air 10/24/23 07:53 10/24/23 07:53 10/24/23 07:53 10/24/23 07:53 10/24/23 07:53 10/24/23 07:53 Oxygen Delivery Method Room Air Weight: 193 lb 9.054 oz Body Mass Index (BMI) 35.4 Intake & Output: Intake and Output for Last 24 Hours 10/22/23 10/23/23 10/24/23 23:59 23:59 23:59 Output Total 1400 / 1400 Balance -1400 / -1400 Lab / Micro Data 10/24/23 02:55 Labs: Laboratory Results - last 24 hr 10/24/23 02:55: WBC 17.0 H, RBC 4.09 L, Hgb 12.2, Hct 36.8 L, MCV 90.0, MCH 29.8, MCHC 33.2, RDW Std Deviation 43.9, RDW Coeff of Maria R 13.5, Plt Count 275, MPV 12.1 H, Immature Gran % (Auto) 0.500, Neut % (Auto) 83.7 H, Lymph % (Auto) 9.9 L, Glenn % (Auto) 5.4, Eos % (Auto) 0.1, Baso % (Auto) 0.4, Absolute Neuts (auto) 14.2 H, Absolute Lymphs (auto) 1.69, Nucleated RBC % 0, Syphilis Total Ab Non-reactive, Blood Type A POSITIVE, Antibody Screen NEGATIVE Physical Exam Const alert and oriented x3 General Appearance: cooperative Orientation / Consciousness: awake, oriented to person, oriented to place and oriented to time Exam Limitations: no limitations HEENT normocephalic Head and Scalp: normal to inspection, normocephalic and atraumatic Face and Sinus: normal facial exam Eyes General Eye: normal appearance of both eyes Neck full ROM Chest Chest: symmetrical chest wall rise Resp normal respiratory effort and normal air movement Auscultation: clear to auscultation bilaterally Cardio regular rate, regular rhythm, S1 normal heart sound, S2 normal heart sound, no murmurs, no rub, no gallops and no clicks GI normal to inspection, nondistended, normoactive bowel sounds and non-tender appearance of the vagina normal Bladder / Kidney Exam: no CVA tenderness Back/Spine normal ROM Extremity normal to inspection and full ROM Skin no rashes or lesions noted Neuro oriented x3, CN's II-XII intact bilaterally and moves all extremities Sensorium / Orientation: awake, alert and oriented to person Motor Exam: clonus absent Deep Tendon Reflexes: Rt Patellar (L4): 2+ and Lt Patellar (L4): 2+ Assessment & Plan (1) Lactating mother: (2) First degree perineal laceration: (3) Vaginal delivery: PLAN: Plan 1) PPD #1 2) Routine PP care 3) Pain controlled 4) Vitals stable 5) Planning D/C tomorrow
[2023-10-24] MEDS: Naproxen 500 MG Tablet PO (12:18)
--- NOTE | 2023-10-24 12:49 | NURSING ---
called Jcosta and reported bp's, will check BP's every hour x2 and call with values
[2023-10-24] MEDS: NIFEdipine 30 MG Tablet PO (15:05)
[2023-10-25 03:53] VITALS: BP 127/81; PULSE 64; RESP 15; TEMP 36.5; O2SAT 99
[2023-10-25] MEDS: Levothyroxine 88 MCG Tablet PO (05:34)
[2023-10-25 05:56] LABS: Absolute Lymphocyte Count 3.55 X10^3/uL (0.83-4.51); Basophil# 0.07 X10^3/uL; Basophil% 0.7 % (0-1); Eosinophil# 0.22 X10^3/uL; Eosinophils% 2.1 % (0-5); Hematocrit 35.6 % (37-47); Hemoglobin 11.6 g/dL (12.0-15.0); Lymphocyte # 3.55 X10^3/ul (0.83-4.51); Lymphocyte % 33.6 % (19-41); Mean Corp Hgb Conc 32.6 g/dL (32-36); Mean Corpuscular Hgb 29.7 pg (27.0-32.0); Mean Platelet Vol. 11.4 fl (6.2-12.0); Monocyte# 0.71 X10^3/uL; Monocyte% 6.7 % (0-10); NRBC Flagged by Analyzer 0 % (0-5); Neutrophil # 5.96 X10^3/uL (2.7-7.7); Neutrophil % 56.3 % (47-70); Platelet Count 257 K/mm3 (150-450); RBC Distribution Width SD 45.8 fl (35.1-43.9); Red Blood Count 3.91 M/mm3 (4.2-5.4); White Blood Count 10.6 K/mm3 (4.4-11.0)
--- NOTE | 2023-10-25 08:38 | PCM.PN.OB ---
Subjective Subjective Doing well. Ambulating without difficulty. Voiding without difficulty. No CAMPBELL no vision changes. Breast feeding. Objective Data Objective Data Vital Signs: Vital Signs Temp Pulse Resp BP Pulse Ox O2 Del Method 97.7 F L 64 15 127/81 H 99 Room Air 10/25/23 03:53 10/25/23 03:53 10/25/23 03:53 10/25/23 03:53 10/25/23 03:53 10/25/23 03:53 Oxygen Delivery Method Room Air Weight: 87.8 kg Body Mass Index (BMI) 35.4 Intake & Output: Intake and Output for Last 24 Hours 10/23/23 10/24/23 10/25/23 23:59 23:59 23:59 Output Total 1400 / 1400 Balance -1400 / -1400 Lab / Micro Data 10/25/23 05:45 Labs: Laboratory Results - last 24 hr 10/25/23 05:45: WBC 10.6, RBC 3.91 L, Hgb 11.6 L, Hct 35.6 L, MCV 91.0, MCH 29.7, MCHC 32.6, RDW Std Deviation 45.8 H, RDW Coeff of Maria R 14.0, Plt Count 257, MPV 11.4, Immature Gran % (Auto) 0.600, Neut % (Auto) 56.3, Lymph % (Auto) 33.6, [place] % (Auto) 6.7, Eos % (Auto) 2.1, Baso % (Auto) 0.7, Absolute Neuts (auto) 6.0, Absolute Lymphs (auto) 3.55, Nucleated RBC % 0 ROS Constitutional Constitutional: Denies fatigue, fever(s) or malaise Eyes Eyes: Denies change in vision ENT HEENT: Denies dizziness or headache(s) Respiratory/Chest Respiratory/Chest: Denies cough or dyspnea Genitourinary Genitourinary: Denies burning urination or genital lesions Integumentary Integumentary: Denies rash Neurologic Neurologic: Denies confusion, dizziness, headache(s), numbness or weakness Physical Exam Const alert and no apparent distress Narrative: Fundus firm, below umbilicus. Assessment & Plan (1) Lactating mother: (2) Vaginal delivery: (3) History of pre-eclampsia:
--- NOTE | 2023-10-25 08:43 | DS.PCM_ITS ---
Providers Date of Admission: 10/23/23 Date of Discharge: 10/25/23 Primary Care Physician: Leroy Phillips, VERONIQUE Reason For Visit: VAG Diagnosis Discharge Diagnosis (1) Lactating mother: Status: Acute Code(s): Z39.1 - Encounter for care and examination of lactating mother (2) Vaginal delivery: Status: Acute Code(s): O80 - Encounter for full-term uncomplicated delivery (3) History of pre-eclampsia: Status: Acute Code(s): Z87.59 - Personal history of other complications of , childbirth and the puerperium Medications at Discharge Home Medications levocetirizine 5 mg tablet (Xyzal) 5 mg PO DAILY Check with primary doctor 02/17/19 montelukast 10 mg tablet (Singulair) 10 mg PO DAILY asthma 02/17/19 prenat.vits,moe,wpz-jkfi-yljew 1 tab PO DAILY 06/30/21 famotidine 40 mg tablet (Pepcid) 40 mg PO BID #60 tabs 12/16/21 levothyroxine 88 mcg capsule 88 mcg PO DAILY #30 caps 12/23/21 nifedipine 30 mg tablet,extended release 24 hr 30 mg PO DAILY #30 tabs 10/25/23 Hospital Course Operations None Procedures None Summary of Care Provided Minutes Spent on Discharge: 20 Hospital Course: Spontaneous labor and . Elevated BP . Started on procardia. No symptoms. Breast feeding Physical Exam Const alert and no apparent distress Narrative: Fundus firm, below umbilicus. Weight / BMI Weight Weight: 87.8 kg Body Mass Index (BMI) 35.4 ABG / Lab / Microbiology Data 10/25/23 05:45 Laboratory: Laboratory Results - last 24 hr 10/25/23 05:45: WBC 10.6, RBC 3.91 L, Hgb 11.6 L, Hct 35.6 L, MCV 91.0, MCH 29.7, MCHC 32.6, RDW Std Deviation 45.8 H, RDW Coeff of Maria R 14.0, Plt Count 257, MPV 11.4, Immature Gran % (Auto) 0.600, Neut % (Auto) 56.3, Lymph % (Auto) 33.6, Darke % (Auto) 6.7, Eos % (Auto) 2.1, Baso % (Auto) 0.7, Absolute Neuts (auto) 6.0, Absolute Lymphs (auto) 3.55, Nucleated RBC % 0 D/C Instructions May resume sexual activity in: 6 weeks Please Follow Up With: Tonia Marrero MD When: Follow up with our office in 1-2 and 6 weeks or as needed. [phone] Meaningful Use Info Meaningful Use Meaningful Use Diagnoses (Choose all that apply): None applicable Ischemic Stroke Statin Dosing Therapy Reference: STATIN DOSE THERAPY REFERENCE: * Patients > 75 years receive moderate or high dose statin therapy. * Patients 75 years or YOUNGER should receive HIGH intensity statin dose unless contraindicated. You will be required to document reason for non-treatment if statin daily dose does not meet guidelines. HIGH DOSE STATIN THERAPY DAILY Atorvastatin > than or = to 40 mg Rosuvastatin > than or = to 20 mg Amlodipine + Atorvastatin > than or = to 2.5/40 mg Ezetimibe + Simvastatin 10/80 mg Simvastatin 80mg Discharge Plan Admission Admit Date/Time: 10/23/23 22:50 Primary Reason for Your Visit: labor Attending Provider: Berna Tyson Primary Care Provider: Leroy Phillips NP Discharge Orders/Prescriptions Prescriptions: New nifedipine 30 mg Tablet Extended Release 24hr 30 mg PO DAILY Qty: 30 0RF Continued montelukast [Singulair] 10 mg tablet 10 mg PO DAILY levocetirizine [Xyzal] 5 mg tablet 5 mg PO DAILY prenat.vits,moe,jjr-jair-diwaj Tablet 1 tab PO DAILY levothyroxine 88 mcg capsule 88 mcg PO DAILY Qty: 30 5RF famotidine [Pepcid] 40 mg tablet 40 mg PO BID Qty: 60 6RF Discontinued aspirin 81 mg Capsule 81 mg PO DAILY Referrals / Follow Up: Leroy Phillips NP, BATCH PLANT SUPERVISOR-C [Primary Care Provider] - Disposition Disposition (needs filled in before D/C Order can be placed): Home, Self Care
[2023-10-25] MEDS: NIFEdipine 30 MG Tablet PO (09:51)
[2023-10-25] MEDS: Senna/Docusate Sodium 1 Tablet PO (09:51)
[2023-10-25 10:00] VITALS: BP 125/82; PULSE 75; RESP 17; TEMP 36.7; O2SAT 96
--- NOTE | 2023-11-16 07:42 | NURSING ---
documented delivery provider
== END 2023-10-25 12:20 | disposition home or self-care (01) | DRG 807 ==
LOC: WPOUT 22:56 → WP 22:56
PROVIDERS: Admitting Provider Advanced Practice Midwife; PCP Nurse Practitioner Family; Referring Provider Advanced Practice Midwife; Visit Provider Advanced Practice Midwife
DX: O62.3 Precipitate labor (principal); Z37.0 Single live birth; R03.0 Elevated blood-pressure reading, without diagnosis of hypertension; E03.9 Hypothyroidism, unspecified; O99.214 Obesity complicating childbirth; O70.0 First degree perineal laceration during delivery; Z3A.39 39 weeks gestation of pregnancy; Z86.16 Personal history of COVID-19; O99.284 Endocrine, nutritional and metabolic diseases complicating childbirth; Z90.49 Acquired absence of other specified parts of digestive tract; Z87.59 Personal history of other complications of pregnancy, childbirth and the puerperium; O99.893 Other specified diseases and conditions complicating puerperium
CPT/HCPCS: 59025; 59050; 85025; 86780; 86850; 86900; 86901; 99221; G0378

== ENCOUNTER → 2023-11-16 | Outpatient (CLI) | payer BC, SELFPAY ==
[2023-11-16 13:44] LABS: ALB/GLOB Ratio 0.9 RATIO (0.9-2.4); AST(SGOT) 18 U/L (15-37); Alanine Aminotransfer ALT/SGPT 40 U/L (13-56); Albumin, Serum 3.4 g/dL (3.2-5.0); Alkaline Phosphatase 143 U/L (45-117); Anion Gap 5 (5-15); BUN 12 mg/dL (7-18); BUN/Creat Ratio 12.9 RATIO (10-20); Calcium,Total 9.4 mg/dL (8.5-10.1); Chloride 107 mmol/L (98-107); Cholesterol 220 mg/dL (200); Creatinine, Serum 0.93 mg/dL (0.55-1.02); EST Glomerular Filtration Rate 76 mL/min (>60); Est Glom Filt Rate - Afr Amer 92 mL/min (>60); Globulin 3.7 g/dL (2.2-4.2); Glucose 84 mg/dL (74-106); High Density Lipoprotein 61 mg/dL; Potassium 3.9 mmol/L (3.5-5.1); Protein, Total 7.1 g/dL (6.4-8.2); Sodium Level 140 mmol/L (136-145); T4 Free Direct 0.93 ng/dL (0.76-1.46); Thyroid Stim Hormone (TSH) 1.64 uIU/mL (0.358-3.74); Triglycerides 80 mg/dL; Very Low Density Lipoprotein 16 mg/dL (5-40)
== END | disposition home or self-care (01) ==
LOC: LAB 12:24
PROVIDERS: PCP Nurse Practitioner Family; Referring Provider Nurse Practitioner Family; Visit Provider Nurse Practitioner Family
DX: E03.9 Hypothyroidism, unspecified (principal); Z13.1 Encounter for screening for diabetes mellitus; Z13.220 Encounter for screening for lipoid disorders
CPT/HCPCS: 36415; 80053; 80061; 83036; 84439; 84443

== ENCOUNTER → 2024-05-19 | Outpatient (CLI) | payer BC, SELFPAY ==
[2024-05-19 08:41] LABS: ALB/GLOB Ratio 0.9 RATIO (0.9-2.4); AST(SGOT) 9 U/L (15-37); Alanine Aminotransfer ALT/SGPT 18 U/L (13-56); Albumin, Serum 3.5 g/dL (3.2-5.0); Alkaline Phosphatase 111 U/L (45-117); Anion Gap 5 (5-15); BUN 12 mg/dL (7-18); BUN/Creat Ratio 14.6 RATIO (10-20); Calcium,Total 8.9 mg/dL (8.5-10.1); Chloride 108 mmol/L (98-107); Cholesterol 163 mg/dL (200); Creatinine, Serum 0.82 mg/dL (0.55-1.02); EST Glomerular Filtration Rate 88 mL/min (>60); Est Glom Filt Rate - Afr Amer 106 mL/min (>60); Globulin 4.1 g/dL (2.2-4.2); Glucose 98 mg/dL (74-106); High Density Lipoprotein 52 mg/dL; Potassium 3.9 mmol/L (3.5-5.1); Protein, Total 7.6 g/dL (6.4-8.2); Sodium Level 138 mmol/L (136-145); T4 Free Direct 0.99 ng/dL (0.76-1.46); Triglycerides 64 mg/dL; Very Low Density Lipoprotein 13 mg/dL (5-40)
== END | disposition home or self-care (01) ==
LOC: LAB 07:47
PROVIDERS: PCP Nurse Practitioner Family; Referring Provider Nurse Practitioner Family; Visit Provider Nurse Practitioner Family
DX: E03.9 Hypothyroidism, unspecified (principal); Z13.1 Encounter for screening for diabetes mellitus; Z13.220 Encounter for screening for lipoid disorders
CPT/HCPCS: 36415; 80053; 80061; 84439; 84443

== ENCOUNTER 2025-02-08 07:29 | Inpatient (IN) | payer OTHER, SELFPAY ==
[2025-02-08] VITALS (40 sets, daily range): BP systolic 108–146; BP diastolic 56–95; PULSE 64–105; RESP 16–18; TEMP 36.6–37.3; O2SAT 97–100; BMI 36.7
[2025-02-08] MEDS: Lactated Ringers 1,000 ML 50 ML IV (07:45)
[2025-02-08 08:01] LABS: Hematocrit 31.8 % (37-47); Hemoglobin 10.7 g/dL (12.0-15.0); Immature Granulocytes Count 0.050 X10^3/uL (0.0-0.0); Mean Corp Hgb Conc 33.6 g/dL (32-36); Mean Corpuscular Volume 89.6 fL (81-99); Mean Platelet Vol. 11.0 fl (6.2-12.0); NRBC Flagged by Analyzer 0 % (0-5); Platelet Count 271 K/mm3 (150-450); RBC Distribution Width CV 13.2 % (11.6-14.6); RBC Distribution Width SD 43.2 fl (35.1-43.9); Red Blood Count 3.55 M/mm3 (4.2-5.4); White Blood Count 10.4 K/mm3 (4.4-11.0)
--- NOTE | 2025-02-08 08:05 | PCM.HP.OB ---
HPI - General General Date of Admission: 02/08/25 HPI Narrative JESSIKA CRAIN, is a 29 F at 37 weeks gestation who presents for scheduled induction of labor for gestational hypertension, mild polyhydramnios and obesity. Maternal Data Information CAMMY Calculator Estimated Delivery Date Method Current WG Current Estimate 03/01/25 Manual 37w 0d PFSH PFSH Medical History (Updated 02/08/25 @ 08:48 by Giovanna Farrell CNM) Gestational HTN Thyroid disorder COVID-19 History of COVID-19 Ileus Allergies Hypothyroid Abdominal pain Home Medications ?Medication ?Instructions ?Recorded ?Last Taken ?Type levocetirizine 5 mg tablet (Xyzal) 5 mg PO DAILY Check with primary 02/17/19 02/07/25 23:00 History doctor montelukast 10 mg tablet 10 mg PO DAILY asthma 02/17/19 02/08/25 06:00 History (Edilberto) prenat.vits,moe,efx-frbo-izcip 1 tab PO DAILY 06/30/21 02/07/25 18:00 History famotidine 40 mg tablet (Pepcid) 40 mg PO BID heartburn #60 tabs 12/16/21 02/07/25 18:00 Rx levothyroxine 88 mcg capsule 88 mcg PO DAILY hypothyroidism #30 12/23/21 02/08/25 06:00 Rx caps Allergy/AdvReac Type Severity Reaction Status Date / Time Sulfa (Sulfonamide Allergy Mild Rash Verified 02/08/25 07:27 Antibiotics) Surgical History (Updated 02/08/25 @ 08:10 by Karolina Scott) History of surgery S/P tonsillectomy History of cholecystectomy Social History household members: spouse number of children: 0 current occupational status: employed 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 Date Name GA/Weeks Outcome Route Bth Weight Infant Gen Labor Lgth Anesthesia Del Locatn Provider FOB 01/30/22 Jordon 37 live - full term Male epidural [facility] Paz Grier Delivery Date: 01/30/22 Last Updated by: Patricia Barnes see problem list for complications, and pre-e. NST FHR Rate Baby A Baseline: 130 Variability:: Moderate Accelerations:: 15 x 15 Decelerations:: None NST Reactive:: Yes FHR Category:: Category I Uterine Activity:: Occasional ROS Eyes Eyes: Denies blurry vision, change in vision or spots in vision ENT HEENT: Denies dizziness or headache(s) Cardiovascular Cardiovascular: Denies abdominal pain, chest pain or dyspnea Respiratory/Chest Respiratory/Chest: Denies cough, dyspnea, shortness of breath at rest or shortness of breath with exertion Gastrointestinal Gastrointestinal: Denies abdominal pain, diarrhea or vomiting Genitourinary Genitourinary: Denies change in urinary stream, difficulty urinating or dysuria Musculoskeletal Musculoskeletal: Reports none Integumentary Integumentary: Denies rash Neurologic Neurologic: Denies dizziness, headache(s), memory loss or weakness Psychiatric Psychiatric: Reports none Vital Signs Vital Signs Vital Signs: 02/08/25 07:26 02/08/25 07:26 02/08/25 07:28 Temperature Temperature Source Temporal Pulse Rate 75 Respiratory Rate Blood Pressure 133/79 H BP Systolic 133 BP Diastolic 79 Pulse Ox 02/08/25 07:28 02/08/25 07:28 02/08/25 07:28 Temperature 98.3 F Temperature Source Pulse Rate Respiratory Rate 16 Blood Pressure BP Systolic BP Diastolic Pulse Ox 97 Weight Weight: 201 lb Body Mass Index (BMI) 36.7 Physical Exam Const alert, oriented x3 and no apparent distress General Appearance: cooperative Orientation / Consciousness: awake Exam Limitations: no limitations HEENT normocephalic Head and Scalp: normal to inspection Eyes General Eye: normal appearance of both eyes Neck full ROM and no lymphadenopathy Lymph Lymphatic: no lymphadenopathy noted Chest inspection of chest normal Resp normal respiratory effort, normal air movement and clear to auscultation bilaterally Effort and Inspection: able to speak in complete sentences and symmetric chest movement Cardio regular rate and regular rhythm GI normal to inspection, nondistended, normoactive bowel sounds Manual OB Exam: presentation cephalic Back/Spine normal ROM Extremity full ROM and no calf tenderness Skin no rashes or lesions noted General Skin Exam: no breakdown Neuro oriented x3 and CN's II-XII intact bilaterally Psych mental status grossly normal and thought process normal Labs Labs Labs: Blood Type A POSITIVE Antibody Screen NEGATIVE Hct, (37-47) 31.8 % L Hgb, (12.0-15.0) 10.7 g/dL L Obstetrics Ultrasound Syphilis Total Ab Non-reactive Rubella IgG Antibody, (Nonreactive) Reactive Hep Bs Antigen, (Nonreactive) Non-Reactive Hepatitis C Antibody, (Nonreactive) Non-Reactive Chlamydia DNA (JOSUE), (Negative) Negative N.gonorrhoeae DNA (JOSUE), (Negative) Negative HIV 1&2 Antibody, (Nonreactive) Non-Reactive Glucose 1 Hr 50 gm, (70-140) 132 mg/dL Miscellaneous Test Assessment & Plan (1) Gestational HTN: COMMENT: current (2) Asthma: COMMENT: daily inhaler, singulair, well controlled. (3) 37 weeks gestation of : (4) Polyhydramnios: (5) Obesity affecting : PLAN: Plan Admit to labor and delivery Routine labs CE 2/-3 - Weinberg bulb placed without difficulty and filled with 30 cc N/S AROM for clear fluid during placement of weinberg bulb Pain medication/epidural when indicated Dr. Avery notified of admission and is collaborating physician
[2025-02-08] MEDS: 0.9% Normal Saline Single 100 ML IV.SOLN. INTRA-UTER (08:30)
[2025-02-08] MEDS: Oxytocin 15 Units/NS 250ml 15 UNITS/250 ML IV.SOLN 2 UNITS IV (08:42)
[2025-02-08] MEDS: Penicillin G Pot 5,000,000 UNITS in 0.9% Normal Saline (100mL MB+) 100 ML 150 UNITS IV (08:45)
[2025-02-08 08:59] LABS: Syphilis Antibodies Nonreactive (Nonreactive)
[2025-02-08] MEDS: Lactated Ringers 1,000 ML 999 ML IV (10:13)
[2025-02-08] MEDS: fentaNYL-bupivacaine (epidural) 100 ML BAG EPIDURAL (10:46)
[2025-02-08] MEDS: LACTATED RINGERS 500 ML 999 ML IV (12:55)
[2025-02-08] MEDS: Penicillin G 3,000,000 Units 50 ML 100 UNITS IV (13:28)
--- NOTE | 2025-02-08 14:11 | EX.PCM.OBVAG ---
Assessment & Plan (1) (spontaneous vaginal delivery): (2) Gestational HTN: COMMENT: current (3) Care and examination of lactating mother: Maternal Data Information CAMMY Calculator Estimated Delivery Date Method Current WG Current Estimate 03/01/25 Manual 37w 0d Gestational age: 37 weeks Vaginal Delivery Maternal Presentation Maternal Presentation: Medically Indicated Induction Type of Induction: Pitocin, Weinberg Bulb and Amniotomy Medical Reason for Induction: Gestational Hypertension Vaginal Delivery Information Procedure Performed: Spontaneous Vaginal Delivery Surgeon/Practitioner: Giovanna Farrell Date of Procedure: 02/08/25 Pre-Procedure Diagnosis: Term gestation, gestational hypertension, induction of labor Post-Procedure Diagnosis: , Live female infant Type of anesthesia: Epidural Estimated Blood Loss: 100 Time of Delivery: 13:54 Findings Description of procedure: Patient progressed to complete dilation. With good maternal effort, head delivered followed by anterior shoulder and remainder of infant body without any force, delay, or traction. Vigorous female was delivered atraumatically and placed on maternal abdomen. Pitocin IV started for active management of the third stage of labor. 3 vessel cord clamped and cut by FOB after delay and infant placed immediately skin to skin with patient. Placenta delivered spontaneously and intact. Bladder emptied with sterile catheter for 500 cc clear urine. After inspection, vagina and perineum are intact. Vaginal sweep performed. Fundus is firm 2 below U and bleeding is hemostatic. Sponge and sharps counts correct. Patient and infant bonding well at this time. Dr. Avery notified of delivery. Routine post orders placed. 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
[2025-02-08] MEDS: Oxytocin 15 Units/NS 250ml 15 UNITS/250 ML IV.SOLN 83 UNITS IV (14:25)
[2025-02-09] VITALS (9 sets, daily range): BP systolic 122–169; BP diastolic 81–88; PULSE 64–68; RESP 15–16; TEMP 36.1–36.7; O2SAT 97–98
--- NOTE | 2025-02-09 07:01 | PCM.DC.SUM ---
Providers Date of Admission: 02/08/25 Primary Care Physician: Leroy Phillips, PHARMACEUTICAL ANALYST-C Reason For Visit: VAGINAL DELIVERY Diagnosis Discharge Diagnosis (1) (spontaneous vaginal delivery): Status: Acute Code(s): O80 - Encounter for full-term uncomplicated delivery (2) Care and examination of lactating mother: Status: Acute Code(s): Z39.1 - Encounter for care and examination of lactating mother Plan PPD 1 Routine care independently D/C home with follow up in office next week Medications at Discharge Home Medications levocetirizine 5 mg tablet (Xyzal) 5 mg PO DAILY Check with primary doctor 02/17/19 montelukast 10 mg tablet (Singulair) 10 mg PO DAILY asthma 02/17/19 prenat.vits,moe,qko-nskd-tamkf 1 tab PO DAILY 06/30/21 famotidine 40 mg tablet (Pepcid) 40 mg PO BID heartburn #60 tabs 12/16/21 levothyroxine 88 mcg capsule 88 mcg PO DAILY hypothyroidism #30 caps 12/23/21 Physical Exam Const alert and no apparent distress General Appearance: cooperative and comfortable Exam Limitations: no limitations HEENT normocephalic Eyes General Eye: normal appearance of both eyes Neck full ROM General: normal visual inspection Chest Chest: symmetrical chest wall rise Resp normal respiratory effort and normal air movement Effort and Inspection: symmetric chest movement Auscultation: clear to auscultation bilaterally Cardio regular rate and regular rhythm GI normal to inspection, nondistended, normoactive bowel sounds Back/Spine normal ROM Extremity full ROM and no calf tenderness General Extremity: normal exam except as noted Skin no rashes or lesions noted Neuro oriented x3 Speech: speech normal Psych mental status grossly normal Thought Process: normal thought process Weight / BMI Weight Weight: 201 lb Body Mass Index (BMI) 36.7 ABG / Lab / Microbiology Data 02/08/25 07:45 Laboratory: Laboratory Results - last 24 hr 02/08/25 07:45: WBC 10.4, RBC 3.55 L, Hgb 10.7 L, Hct 31.8 L, MCV 89.6, MCH 30.1, MCHC 33.6, RDW Std Deviation 43.2, RDW Coeff of Mariar 13.2, Plt Count 271, MPV 11.0, Immature Gran % (Auto) 0.500, Neut % (Auto) 62.2, Lymph % (Auto) 27.5, [place] % (Auto) 7.3, Eos % (Auto) 2.1, Baso % (Auto) 0.4, Absolute Neuts (auto) 6.5, Absolute Lymphs (auto) 2.86, Nucleated RBC % 0, Syphilis Total Ab Nonreactive, Blood Type A POSITIVE, Antibody Screen NEGATIVE D/C Instructions DC O2, CPAP, BIPAP Needs Home O2 Discharge instructions: No Meaningful Use Info Meaningful Use Meaningful Use Diagnoses (Choose all that apply): None applicable Discharge Plan Admission Admit Date/Time: 02/08/25 07:29 Primary Reason for Your Visit: Labor and Delivery Attending Provider: Giovanna Farrell Primary Care Provider: Leroy Phillips NP Discharge Orders/Prescriptions Prescriptions: Continued montelukast [Singulair] 10 mg tablet 10 mg PO DAILY levocetirizine [Xyzal] 5 mg tablet 5 mg PO DAILY prenat.vits,moe,mtl-shat-zkjmw Tablet 1 tab PO DAILY levothyroxine 88 mcg capsule 88 mcg PO DAILY Qty: 30 5RF famotidine [Pepcid] 40 mg tablet 40 mg PO BID Qty: 60 6RF Referrals / Follow Up: Giovanna Farrell CNM [Med Staff - [facility] Practice Prof, Obstetrics] Leroy Phillips PHARMACEUTICAL ANALYST, PHARMACEUTICAL ANALYST-C [Primary Care Provider, Family Practice] Disposition Disposition (needs filled in before D/C Order can be placed): Home, Self Care
--- NOTE | 2025-02-09 12:42 | NURSING ---
pt complaining of intense cramping while up to shower and passes clot with tissue attached to rm. Janes comes to and assess with US. She states that she thinks there may be some retained placenta and that poornima will be on to unit shortly to assess with US and make plan of care.
--- NOTE | 2025-02-09 13:07 | PCM.PN.BLA ---
Progress Note saw patient at bedside after passing what appeared to be a piece of placenta tissue approximately 5cm large. pt reports prior to passing tissue she had more severe cramping and heavier bleeding- since passing tissue pain is minimal and bleeding has slowed. Bedside utlrasound shows EM of 1.43cm - i do not see any signs of retained POC. Will continue to monitor and bleeding precautions were reviewed with patient.
--- NOTE | 2025-02-15 10:59 | NURSING ---
Follow up phone call intervention not completed, phone call not made.
== END 2025-02-09 16:15 | disposition home or self-care (01) | DRG 807 ==
PROVIDERS: Admitting Provider Advanced Practice Midwife; PCP Nurse Practitioner Family; Referring Provider Advanced Practice Midwife; Visit Provider Advanced Practice Midwife
DX: O13.4 Gestational [pregnancy-induced] hypertension without significant proteinuria, complicating childbirth (principal); Z37.0 Single live birth; O40.3XX0 Polyhydramnios, third trimester, not applicable or unspecified; E03.9 Hypothyroidism, unspecified; J45.909 Unspecified asthma, uncomplicated; O99.214 Obesity complicating childbirth; O99.284 Endocrine, nutritional and metabolic diseases complicating childbirth; O99.52 Diseases of the respiratory system complicating childbirth; Z3A.37 37 weeks gestation of pregnancy; Z79.890 Hormone replacement therapy; Z79.899 Other long term (current) drug therapy; Z90.49 Acquired absence of other specified parts of digestive tract
CPT/HCPCS: 59025; 59050; 85025; 86780; 86850; 86900; 86901; 99221; G0378